=== PATIENT | male | born 1965 | race Caucasian/White ===

== ENCOUNTER 2018-07-12 10:15 | Inpatient (IN) | payer SELFPAY ==
[2018-07-12] MEDS ORDERED: Fentanyl 100 MCG/2 ML VIAL ONE ×2 (10:26→10:39)
[2018-07-12] MEDS ORDERED: Adacel (T-DAP) 0.5 ML SYRINGE ONE (10:34)
[2018-07-12 10:43] LABS: Hemoglobin 11.9 g/dL (14.0-18.0); Mean Corpuscular HGB CONC 33.1 g/dL (32.0-36.0); Mean Corpuscular Hemoglobin 30.4 pg (27.0-31.0); Mean Corpuscular Volume 91.7 fL (78.0-98.0); Mean Platelet Volume 6.2 fL (7.4-10.4); Platelet Count 234 thou/uL (130-400); RBC Distribution Width 12.2 % (11.5-14.5); Red Blood Cell (RBC) Count 3.92 mill/uL (4.70-6.10); White Blood Cell (WBC) Count 8.7 thou/uL (4.8-10.8)
[2018-07-12 10:56] LABS: Band 34 % (5-11); Lymphocytes 7 % (21-51); MDiff Complete? YES; Metamyelocyte 1 % (0-0); Neutrophil 58 % (42-75); Platelet Morphology Comment Appears Adequate; RBC Morphology Normal
--- NOTE | 2018-07-12 10:56 | RAD ---
PORTABLE CHEST 1 VIEW: Date: 07/12/18 Time: 1022 hours HISTORY: Rib fractures, chest tubes. FINDINGS/IMPRESSION: Comparison made with exam at 0942 hours this same date. No significant interval change is seen. POS: OFF
[2018-07-12 11:03] LABS: ALT (SGPT) 53 U/L (8-55); AST (SGOT) 194 U/L (5-34); Albumin 3.2 g/dL (3.5-5.0); Alkaline Phosphatase 56 U/L (40-150); Anion Gap 14 mmol/L (10-20); BUN (Urea Nitrogen) 15 mg/dL (8.4-25.7); Bilirubin, Total 1.1 mg/dL (0.2-1.2); Calc. Creatinine Clearance 0 mL/min (70-130); Calcium 8.8 mg/dL (7.8-10.44); Carbon Dioxide 16 mmol/L (22-29); Chloride 101 mmol/L (98-107); Estimated GFR-MDRD 82; Globulin 2.6 g/dL (2.4-3.5); Glucose 148 mg/dL (70-105); Potassium 4.4 mmol/L (3.5-5.1); Protein, Total 5.8 g/dL (6.0-8.3); Sodium 127 mmol/L (136-145)
[2018-07-12 11:05] LABS: INR-International Normal Ratio 1.2; PTT 31.7 SEC (22.9-36.1); Prothrombin Time 15.3 SEC (12.0-14.7)
[2018-07-12 11:07] LABS: Lactic Acid 3.1 mmol/L (0.5-2.2)
[2018-07-12 11:12] LABS: Acetaminophen Less than 6.0 mcg/mL (10.0-30.0); Alcohol Less than 10 mg/dL (Less than 10); Salicylate Less than 8.0 mg/dL (15.0-30.0)
--- NOTE | 2018-07-12 11:18 | HP ---
HISTORY OF PRESENT ILLNESS: Mao Mcfadden is a 52-year-old male patient transfer from [place]. The patient yesterday was cutting tree limbs when a tree limb fell on him. He denies loss of consciousness. He had pain today and made it to his car and a family member drove him to the [place] [facility], where he was found to have a systolic blood pressure in the 70s, tachypneic and hypoxic. Evaluation revealed that he had multiple rib fractures bilaterally and hemopneumothoraces. Bilateral chest tubes were placed, one unit of blood was initiated, and his blood pressure normalized. He was transferred by air to [facility], hemodynamically stable, alert and oriented, GCS of 15. The CAT scan in [place] prior to chest tube placement did reveal bilateral pneumothoraces, left greater than right, bilateral pleural effusions, right larger than the left. Multiple bilateral rib fractures, right ribs 1 through 5 and 7 through 9 and left ribs 1 through 5, and 7 through 8 with a nondisplaced fracture of the right scapular body. He had a fracture of the body at T10 with compression and one fracture line running vertically through it front to back, fractures of each lamina were present, there is very little displacement. Mediastinum is normal. He had L1-[address] scan of the brain, abdomen, pelvis, otherwise unremarkable, on arrival at this institution, the patient as stated above, GCS 15, hemodynamically stable, he was talking coherently, but having some difficulty because of the pain with inspiration from his bilateral rib fractures. Cervical spine CAT scan and brain CAT scan were normal. In [place], his hemoglobin was 11.8, white count 9.3. Laboratories are pending here. This morning in [place] at 8 o'clock, sodium 126, potassium 4.3, chloride 94, carbon dioxide 21, BUN 16, and creatinine 1.35. Blood gas is 7.2, pCO2 38, bicarb 16, hemoglobin 10.9. ALLERGIES: SULFA. SOCIAL HISTORY: Tobacco, none. Alcohol, five beers a day. MEDICATIONS: None routinely. PAST SURGICAL HISTORY: ORIF, left heel/ankle. PAST MEDICAL HISTORY: Noncontributory. REVIEW OF SYSTEMS: Ten-point noncontributory. PHYSICAL EXAMINATION: VITAL SIGNS: Heart rate 102, blood pressure 130/70, respiratory rate 18 to 20. HEAD, EARS, EYES, NOSE AND THROAT: Unremarkable. Small laceration in right upper eyelid less than half a centimeter, small laceration submandibular less than a centimeter. NECK: Nontender. Cervical spine nontender. No neck masses. LUNGS: Splinting from pain, but good breath sounds. CARDIAC: Regular rate and rhythm. Slight tachycardia 102 to 105. ABDOMEN: Soft, flat, nondistended. Chest wall tender. Thoracolumbar spine slightly tender lower thoracic spine and upper lumbar. EXTREMITIES: Palpable pedal pulses. Palpable radial pulses. NEUROLOGICAL: Intact. LABORATORY DATA: As noted. ASSESSMENT/PLAN: 1. Multiple bilateral rib fractures with bilateral hemopneumothorax status post chest tube placement in both sides in [place]. He has less than 400 mL of blood in each chest tube. His lungs are fully inflated and we will repeat chest x-ray here. He will need pain control on admission to the floor. His blood pressure is normalized after resolution of his hemopneumothoraces .. 2. T10 vertebral body fracture with neurologically intact. Neurosurgery consultation, L1-2 compression fracture neurologically intact. 3. Alcohol abuse history. Prophylaxis for withdrawal. Job ID: [id number]
--- NOTE | 2018-07-12 12:01 | CON ---
DATE OF CONSULTATION: 07/12/2018 REQUESTING PHYSICIAN: Trauma Services. CONSULTING PHYSICIAN: Lamberto San MD REASON FOR CONSULTATION: Right scapula fracture. HISTORY OF PRESENT ILLNESS: This is a 52-year-old male, who presented by air transfer from our [place] facility. The patient states that yesterday he was cutting tree limbs on a cable that was attached to the main portion of the tree, fail to catch the limbs, and these subsequently fell on top of him. He denies any loss of consciousness or head injury. He was transferred to our facility after he had pain and was able to make it to a car and drive himself to the [place] [facility]. There, he was found to have a systolic blood pressure in the 70s, was tachypneic and hypoxic. Evaluation revealed that he had multiple rib fractures bilaterally and pneumothoraces. Bilateral chest tubes were placed, 1 unit of blood was initiated and his blood pressure was normalized. He was then transferred by air to our facility, hemodynamically stable, alert and oriented. Further workup in our emergency department shows evidence of a nondisplaced scapular body fracture on the right. There is also evidence of bilateral distal clavicle fractures, which are also nondisplaced. We have been consulted for this reason. Currently at bedside, the patient is able to converse with me and provide a history. He has been admitted to the Trauma Services. ALLERGIES: SULFA. PAST MEDICAL HISTORY: Noncontributory. PAST SURGICAL HISTORY: ORIF of the left heel and ankle. SOCIAL HISTORY: The patient denies any tobacco use or illicit drug use. He states that he drinks 5 beers a day. He lives by himself. FAMILY HISTORY: Reviewed and noncontributory. PHYSICAL EXAMINATION: VITAL SIGNS: Heart rate of 102, blood pressure of 130/70, respiratory rate of 18. HEENT: Head is normocephalic. There are small lacerations to the forehead region. One over the right upper eyelid that is less than half a centimeter. NECK: Supple. Trachea midline. Breathing is nonlabored. CHEST: Bilateral chest tubes are present. He does have tenderness to palpation over his bilateral clavicles. No open wounds overlying these. MUSCULOSKELETAL: Upper extremities, he is able to move both of his upper extremities independently without any difficulty. On the right upper extremity, this was evaluated. He is able to flex and extend at the elbow, pronate and supinate at the elbow, flex and extend at the wrist and move all digits. Distal neurovascular status is intact. Left upper extremity was evaluated. He is able to flex and extend at the elbow, pronate and supinate at the elbow, flex and extend at the wrist, and move all digits appropriately. Distal neurovascular status is intact. There are no open wounds noted to either of these upper extremities. No other significant injuries are noted on extremity evaluation. IMAGING: Chest x-ray as well as CT of the chest, abdomen, and pelvis are reviewed. There is evidence of a nondisplaced right scapular body fracture. There is also evidence of nondisplaced bilateral distal clavicle fractures. ASSESSMENT: Trauma patient status post struck by a falling tree with right scapular body fracture and bilateral nondisplaced clavicle fractures. PLAN: At this point, the patient has been admitted to the Trauma Services. He has bilateral chest tubes, which were placed. He also appears to have multiple spinal fractures. Neurosurgery has been consulted for this reason. It appears that none of the orthopedic fractures are surgical. I have reviewed this with the patient. We would like to place him in bilateral slings whenever he is indicated for ambulatory movement. While he is in bed, he does not need these as these are for comfort purposes only. We will continue to follow the patient. Job ID: [id number]
[2018-07-12] MEDS ORDERED: Ondansetron PF 4 MG/2 ML Vial IVP PRN ×2 (12:22→16:19)
[2018-07-12] MEDS ORDERED: Dextrose 5% in Water 1,000 ML IV PRN (12:22)
[2018-07-12] MEDS ORDERED: Dextrose 50% Abboject 50 ML SYRINGE SLOW IVP PRN (12:22)
[2018-07-12] MEDS ORDERED: Promethazine HCl 25 MG/ML VIAL IM PRN ×2 (12:22→16:19)
[2018-07-12] MEDS ORDERED: Oxazepam 10 MG CAP PO SCH (12:22)
[2018-07-12] MEDS ORDERED: Rib Fracture Protocol IV SCH (12:22)
--- NOTE | 2018-07-12 12:25 | PRG ---
DATE OF SERVICE: 07/12/2018 The patient seen and examined. I agree with Rakel Pola's evaluation on 07/12/2018. The patient is a 52-year-old male with known alcoholism, who was hit by a tree yesterday and was evaluated in the hospital today. He had numerous thoracic and pulmonary injuries. The patient is neurologically intact. CT scan has revealed T10, L1, and L2 fractures. The L1 and L2 are fairly significant compression fracture as well as T10 fractures and more complex fracture involving also the posterior elements with some elements of a Chance fracture, but no meaningful displacement or angulation. IMPRESSION AND PLAN: We will plan to treat the patient in a TLSO brace for approximately 3 months. He can be mobilized once the brace is in place, but I do expect there will be complications related to his chest tubes and bracing. Job ID: [id number]
[2018-07-12] MEDS: Sodium Chloride 0.9% 1,000 ML IV SCH ×2 (13:06→20:04)
[2018-07-12] MEDS ORDERED: Cyclobenzaprine 10 MG TAB PO PRN (13:11)
[2018-07-12] MEDS ORDERED: traMADol HCl 50 MG TAB PO PRN ×2 (13:16)
[2018-07-12] MEDS: Ketorolac Tromethamine 30 MG/ML VIAL IVP SCH ×2 (13:17→18:24)
[2018-07-12] MEDS ORDERED: Morphine 2 MG/ML SYRINGE SLOW IVP PRN (13:26)
[2018-07-12] MEDS ORDERED: Sodium Chloride 0.9% 1,000 ML IV SCH (13:30)
[2018-07-12] MEDS ORDERED: Lactated Ringer's 1,000 ML IV SCH (13:30)
[2018-07-12] MEDS: Acetaminophen 1,000 MG in Premix Bag 1 BAG IVPB SCH ×2 (14:40→20:04)
[2018-07-12] MEDS: Gabapentin 100 MG CAP PO SCH ×2 (14:40→20:04)
[2018-07-12] MEDS ORDERED: diphenhydrAMINE 25 MG CAP PO PRN (16:19)
[2018-07-12] MEDS ORDERED: diphenhydrAMINE 50 MG/ML VIAL IM PRN (16:19)
[2018-07-12] MEDS ORDERED: Naloxone HCl 0.4 mg/ml Vial IV PRN (16:19)
[2018-07-12] MEDS ORDERED: Zolpidem Tartrate 5 MG TAB PO PRN (16:19)
[2018-07-12] MEDS ORDERED: diphenhydrAMINE 50 MG/ML VIAL IVP PRN (16:19)
[2018-07-12] MEDS ORDERED: fentaNYL Citrate/PF 2,000 MCG in Sodium Chloride 0.9% 60 ML IV PRN (16:19)
[2018-07-12] MEDS ORDERED: Communication Order-Pharmacy FS SCH (16:30)
--- NOTE | 2018-07-12 16:53 | CON ---
DATE OF CONSULTATION: 07/12/2018 This is Rakel Escalona PA-C dictating a report for Joao Hooper MD. HISTORY OF PRESENT ILLNESS: The patient is a 52-year-old male, who presented to the emergency department as transfer from [place] after being injured while cutting down tree limbs. The patient reports that he was cutting tree limbs yesterday and was hit by a falling limb. He reports he did not initially present to the hospital at that time because he thought he was okay. However, overnight he had increasing chest and back pain as well as shortness of breath, which prompted evaluation at [place] ED earlier today. Upon arrival, the patient was found to be tachypneic, hypoxic, and hypotensive. Trauma scans revealed multiple rib fractures, bilateral pneumothoraces, right scapular fracture, bilateral clavicle fracture, T10 vertebral body fracture with extension of bilateral lamina, L1 compression fracture and L2 compression fractures with extension to the right articular process. CT head and neck was negative for acute changes or injury. The patient had bilateral chest tubes placed at the [place] ED and was transferred to [facility] ER for further management. He was seen by the Trauma Service on arrival. I also saw the patient in the ED. He has a GCS of 15 and was neurologically intact on my exam. PAST MEDICAL HISTORY: Notable for history of EtOH abuse. He reports he is otherwise healthy and does not take any medications. PAST SURGICAL HISTORY: Right ankle open reduction and internal fixation. SOCIAL HISTORY: The patient has not EtOH abuse. Drinks approximately 5 drinks per day. Does not smoke or use any drugs. REVIEW OF SYSTEMS: Per HPI. ALLERGIES: ALLERGIC TO SULFA. PHYSICAL EXAMINATION: CONSTITUTIONAL: Awake and alert, in no acute distress. HEENT: Head, there is a small abrasion over the right brow, otherwise no other signs of trauma. Eyes; PERRLA. Extraocular movements are intact. ENT; oral mucosa is pink, intact, and moist. He has normal voice. NECK: Nontender to palpation. Free active range of motion. No nuchal rigidity or meningismus. CARDIAC: Regular rate and rhythm. LUNGS: He has bilateral chest tubes placed. He is breathing comfortably. ABDOMEN: Flat, soft, and nontender. EXTREMITIES: He has free active range of motion of the lower extremities. No focal motor weakness. No reflex asymmetry in the lower extremities. 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 The patient is unable to lift his arms over the head secondary to pain. Denies any weakness in this area. No reflex asymmetry. Negative Freedman's. Negative clonus. NEURO: He has a GCS of 15. He is A and O x4. No focal neurologic deficits are appreciated. ASSESSMENT AND PLAN: This is a 52-year-old male, who was unfortunately hit by a tree limb and suffered multiple bilateral rib fractures with bilateral pneumothorax, status post chest tube placement in [place]. This is being managed by the Trauma Service and the patient appears to be resting comfortably. He has also right scapular fracture and bilateral clavicle fractures, which is being seen by the Orthopedic Service. With regard to his T10 vertebral body fracture with extension to bilateral lamina, L1 compression fracture, and L2 compression fractures with extension to the right articular process. We will plan to treat this with a TLSO brace. I do not anticipate any acute surgical intervention at this time. The patient should wear the brace at all times. We will contact [facility] for assistance with fitting his brace considering his ongoing chest tubes. I discussed this plan with Dr. Hooper, who will also see the patient. Please reach out to Neurosurgery for additional questions. Job ID: [id number]
[2018-07-12] MEDS ORDERED: Acetaminophen 650 MG Suppository PR SCH (18:00)
[2018-07-12] MEDS: Famotidine/PF 20 mg/2ml Vial SLOW IVP SCH (20:04)
[2018-07-13] MEDS: Acetaminophen 1,000 MG in Premix Bag 1 BAG IVPB SCH ×2 (00:57→08:26)
[2018-07-13] MEDS: Sodium Chloride 0.9% 1,000 ML IV SCH ×4 (00:57→19:48)
[2018-07-13] MEDS: Ketorolac Tromethamine 30 MG/ML VIAL IVP SCH ×5 (00:57→23:03)
[2018-07-13 06:53] LABS: #Eosinphils 0.1 thou/uL (0.0-0.7); #Lymphocytes 0.4 thou/uL (1.20-3.40); #Monocytes 0.1 thou/uL (0.11-0.59); #Neutrophils 3.6 thou/uL (1.40-6.50); %Basophils 0.8 % (0.0-1.0); %Eosinophils 2.3 % (0.0-10.0); %Lymphocytes 9.7 % (21.0-51.0); %Monocytes 3.1 % (0.0-10.0); %Neutrophils 84.1 % (42.0-75.0); Hemoglobin 9.5 g/dL (14.0-18.0); Mean Corpuscular Hemoglobin 31.5 pg (27.0-31.0); Mean Corpuscular Volume 92.5 fL (78.0-98.0); Mean Platelet Volume 6.1 fL (7.4-10.4); Platelet Count 168 thou/uL (130-400); RBC Distribution Width 12.3 % (11.5-14.5); Red Blood Cell (RBC) Count 3.03 mill/uL (4.70-6.10); White Blood Cell (WBC) Count 4.3 thou/uL (4.8-10.8)
[2018-07-13 07:09] LABS: Lactic Acid 0.9 mmol/L (0.5-2.2)
[2018-07-13 07:10] LABS: Anion Gap 9 mmol/L (10-20); BUN (Urea Nitrogen) 10 mg/dL (8.4-25.7); Calc. Creatinine Clearance 115 mL/min (70-130); Calcium 8.3 mg/dL (7.8-10.44); Carbon Dioxide 21 mmol/L (22-29); Chloride 108 mmol/L (98-107); Estimated GFR-MDRD Greater than 90; Glucose 91 mg/dL (70-105); Magnesium 1.7 mg/dL (1.6-2.6); Phosphorus 3.2 mg/dL (2.3-4.7); Potassium 4.1 mmol/L (3.5-5.1); Sodium 134 mmol/L (136-145)
[2018-07-13] MEDS: Famotidine/PF 20 mg/2ml Vial SLOW IVP SCH ×2 (08:26→19:49)
[2018-07-13] MEDS: Gabapentin 100 MG CAP PO SCH ×3 (08:26→19:49)
--- NOTE | 2018-07-13 09:12 | RAD ---
PORTABLE CHEST: Date: 07/13/18 HISTORY: Bilateral chest tubes, evaluation for pneumothorax. COMPARISON: Prior day's study. FINDINGS: The right and left-sided chest tubes remain unchanged in position. Subcu emphysema over the right [address] is again demonstrated. There is some minimal subsegmental atelectatic change in the lung bases. No signs of pneumothorax. IMPRESSION: Stable exam. POS: [facility]
[2018-07-13] MEDS ORDERED: Ketorolac Tromethamine 30 MG/ML VIAL IVP SCH (10:37)
[2018-07-13] MEDS ORDERED: Thiamine 100 MG TAB PO SCH (10:45)
[2018-07-13] MEDS: Acetaminophen 325 MG TAB PO SCH ×3 (11:40→23:03)
[2018-07-13] MEDS: Oxazepam 10 MG CAP PO SCH ×2 (14:07→19:49)
[2018-07-13 14:43] LABS: #Basophils 0.1 thou/uL (0.0-0.2); #Eosinphils 0.1 thou/uL (0.0-0.7); #Lymphocytes 0.4 thou/uL (1.20-3.40); #Monocytes 0.2 thou/uL (0.11-0.59); #Neutrophils 4.3 thou/uL (1.40-6.50); %Basophils 1.2 % (0.0-1.0); %Lymphocytes 8.8 % (21.0-51.0); %Monocytes 4.1 % (0.0-10.0); %Neutrophils 84.9 % (42.0-75.0); Hemoglobin 9.6 g/dL (14.0-18.0); Mean Corpuscular HGB CONC 33.5 g/dL (32.0-36.0); Mean Corpuscular Hemoglobin 31.2 pg (27.0-31.0); Mean Corpuscular Volume 93.2 fL (78.0-98.0); Platelet Count 157 thou/uL (130-400); RBC Distribution Width 12.5 % (11.5-14.5); Red Blood Cell (RBC) Count 3.06 mill/uL (4.70-6.10)
--- NOTE | 2018-07-13 16:14 | PRG ---
DATE OF SERVICE: 07/13/2018 SUBJECTIVE: This is a 52-year-old gentleman, who was a transfer from [place] with a delayed presentation of being struck by a tree limb. The patient had no loss of consciousness. The patient continues to have bilateral chest tubes to suction, both with very small air leak. The patient continues to use incentive spirometer, but is only able to get to the 500 mL. The patient remains in a TLSO brace. The patient reports moderate amount of pain and continues to use his GRAPHIC DESIGN INTERN. The patient had no overnight events. The patient's heart rate continues to be elevated. The patient's scheduled Serax was a hard stop due to the patient being placed on GRAPHIC DESIGN INTERN. OBJECTIVE: VITAL SIGNS: Temperature 97.9, pulse 126, respirations 16, SpO2 of 91% on room air, and blood pressure 131/86. HEENT: Small laceration in the right upper eyelid. RESPIRATORY: Splinting from pain. Positive breath sounds bilateral. No wheezing, rales, or rhonchi. CARDIOVASCULAR: Tachycardic. Regular rhythm. EXTREMITIES: Distal pulses in all extremities. NEUROLOGICAL: No focal deficits. LABORATORY DATA: WBC 5.0, RBC 3.06, hemoglobin 9.6, hematocrit 28.6, and platelets 157. Sodium 134, potassium 4.1, chloride 108, CO2 of 21, anion gap 9, BUN 10, creatinine 0.66, estimated GFR 90, glucose 91, lactic acid 0.9, calcium 8.3, phosphorus 3.2, and magnesium 1.7. DIAGNOSTIC DATA: Chest x-ray, bilateral chest tube, unchanged position. Subcutaneous emphysema over the right chest again demonstrated from previous x-ray. No signs of pneumothorax. Some minimal subsegmental atelectatic change in lung bases. IMPRESSION: 1. Blunt trauma from falling tree limb. 2. Bilateral hemopneumothorax with bilateral chest tubes. 3. Right 1 through 5 and 7th rib fractures. 4. Left 1 through 5 and 7 through 8th rib fractures. 5. T10 vertebral body fracture. 6. L1-L2 compression fracture. 7. Right scapular fracture. 8. Bilateral clavicle fractures. 9. History of alcohol abuse. PLAN: We will continue bilateral chest tubes to suction. We will repeat chest x-ray in the morning. We will place the patient back on scheduled Serax as it was a hard stop when the patient's GRAPHIC DESIGN INTERN was placed. We will continue fentanyl GRAPHIC DESIGN INTERN for pain. We will place bilateral slings whenever the patient ambulates. Continue TLSO. We will schedule the patient's Tylenol and Toradol. We will continue free water restriction due to the patient's hyponatremia. We will encourage pulmonary toilet. We will encourage physical and occupational therapy. We will place a rehab screen. Job ID: [id number]
[2018-07-13] MEDS ORDERED: Magnesium Sulfate 2 GM in Sodium Chloride 0.9% 100 ML IVPB SCH (18:30)
[2018-07-13] MEDS ORDERED: Magnesium 2 GM/50 ML 2 GM in Premix Bag 1 BAG IVPB SCH (18:45)
[2018-07-13 19:04] LABS: #Basophils 0.1 thou/uL (0.0-0.2); #Eosinphils 0.1 thou/uL (0.0-0.7); #Lymphocytes 0.6 thou/uL (1.20-3.40); #Monocytes 0.2 thou/uL (0.11-0.59); #Neutrophils 3.8 thou/uL (1.40-6.50); %Basophils 1.7 % (0.0-1.0); %Eosinophils 2.6 % (0.0-10.0); %Lymphocytes 11.7 % (21.0-51.0); %Monocytes 3.5 % (0.0-10.0); %Neutrophils 80.5 % (42.0-75.0); Hemoglobin 9.6 g/dL (14.0-18.0); Mean Corpuscular HGB CONC 32.3 g/dL (32.0-36.0); Mean Corpuscular Hemoglobin 30.1 pg (27.0-31.0); Mean Corpuscular Volume 93.3 fL (78.0-98.0); Mean Platelet Volume 5.9 fL (7.4-10.4); Platelet Count 144 thou/uL (130-400); RBC Distribution Width 12.5 % (11.5-14.5); Red Blood Cell (RBC) Count 3.19 mill/uL (4.70-6.10); White Blood Cell (WBC) Count 4.7 thou/uL (4.8-10.8)
[2018-07-13] MEDS ORDERED: Sodium Chloride 0.9% 500 ML IV SCH ×2 (21:30→21:45)
[2018-07-14] MEDS: Ketorolac Tromethamine 30 MG/ML VIAL IVP SCH ×4 (05:34→23:47)
[2018-07-14] MEDS: Acetaminophen 325 MG TAB PO SCH ×4 (05:35→23:46)
[2018-07-14] MEDS: Oxazepam 10 MG CAP PO SCH ×3 (05:35→21:34)
[2018-07-14 06:37] LABS: Anion Gap 9 mmol/L (10-20); BUN (Urea Nitrogen) 9 mg/dL (8.4-25.7); Calc. Creatinine Clearance 124 mL/min (70-130); Calcium 8.2 mg/dL (7.8-10.44); Carbon Dioxide 22 mmol/L (22-29); Chloride 106 mmol/L (98-107); Estimated GFR-MDRD Greater than 90; Glucose 89 mg/dL (70-105); Magnesium 1.7 mg/dL (1.6-2.6); Phosphorus 2.9 mg/dL (2.3-4.7); Sodium 133 mmol/L (136-145)
--- NOTE | 2018-07-14 07:15 | RAD ---
CHEST 1 VIEW: Date: 07/14/18 HISTORY: Chest tubes and pneumothoraces. COMPARISON: Prior exam dated 07/13/18. FINDINGS: Right and left-sided chest tubes are stable. Subcutaneous emphysema overlying right chest wall is imp roved. There has been interval development of a small right apical pneumothorax. Findings were called to the floor to Sophia Gee RN, at 0520 hours on 07/14/18. No left-sided pneumothorax is evident. Multiple rib fractures are again noted. Heart size within normal limits. IMPRESSION: Interval development of small right pneumothorax as detailed. Findings called as above. CODE CR. POS: [facility]
--- NOTE | 2018-07-14 08:02 | CON ---
DATE OF CONSULTATION: SUBJECTIVE: Seen and examined. He is doing reasonably well considering the extent of his injuries. His pain control remains an issue. He remains in his TLSO brace and can continue to be mobilized in the brace. We will arrange for 4-week outpatient followup with x-rays, and in the interim, he needs to remain in the brace at all time for his thoracolumbar fractures. Job ID: [id number]
[2018-07-14] MEDS: Thiamine 100 MG TAB PO SCH (08:47)
[2018-07-14] MEDS: Folic Acid 1 MG TAB PO SCH (08:47)
[2018-07-14] MEDS: Famotidine/PF 20 mg/2ml Vial SLOW IVP SCH (08:47)
[2018-07-14] MEDS: Gabapentin 100 MG CAP PO SCH ×2 (08:47→14:47)
[2018-07-14 12:23] LABS: #Basophils 0.1 thou/uL (0.0-0.2); #Eosinphils 0.3 thou/uL (0.0-0.7); #Lymphocytes 0.7 thou/uL (1.20-3.40); #Monocytes 0.3 thou/uL (0.11-0.59); #Neutrophils 5.2 thou/uL (1.40-6.50); %Basophils 1.2 % (0.0-1.0); %Eosinophils 4.2 % (0.0-10.0); %Lymphocytes 10.4 % (21.0-51.0); %Monocytes 4.8 % (0.0-10.0); %Neutrophils 79.4 % (42.0-75.0); Hemoglobin 9.5 g/dL (14.0-18.0); Mean Corpuscular HGB CONC 33.3 g/dL (32.0-36.0); Mean Corpuscular Hemoglobin 31.3 pg (27.0-31.0); Mean Platelet Volume 6.4 fL (7.4-10.4); Platelet Count 189 thou/uL (130-400); RBC Distribution Width 12.7 % (11.5-14.5); Red Blood Cell (RBC) Count 3.04 mill/uL (4.70-6.10); White Blood Cell (WBC) Count 6.6 thou/uL (4.8-10.8)
[2018-07-14] MEDS ORDERED: Magnesium 2 GM/50 ML 2 GM in Premix Bag 1 BAG IVPB SCH ×2 (13:00→14:00)
[2018-07-14] MEDS ORDERED: Potassium Phosphate 15 MMOL in Sodium Chloride 0.9% 250 ML 250 ML IVPB SCH (14:15)
[2018-07-14] MEDS ORDERED: Potassium Phosphate 15 MMOL, Magnesium Sulfate 2 GM in Sodium Chloride 0.9% 250 ML 250 ML IVPB SCH (14:30)
[2018-07-14] MEDS ORDERED: Morphine 4 MG/ML VIAL SLOW IVP PRN (15:09)
--- NOTE | 2018-07-14 15:49 | PRG ---
DATE OF SERVICE: 07/14/2018 SUBJECTIVE: This is a 52-year-old gentleman, status post blunt trauma from being struck by a tree limb. This morning, the patient is currently participating with physical therapy. The patient is in his TLSO brace and physical therapy assisting the patient with walking and getting him up to the chair. Bilateral chest tubes are currently to water-seal. The patient denies any respiratory distress. The patient remains tachycardic and the patient only able to use his incentive spirometer up to 500 mL only. The patient denies any complaints at this time. 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 The patient's family concern with the patient's disposition and where he will go from the hospital. Chest tube output total right 750 mL, left output total 450 mL. Left shows a very small leak. OBJECTIVE: VITAL SIGNS: Temperature 98.0, pulse 132, respirations 18, SpO2 of 95% on 2 L, and blood pressure 126/85. GENERAL: The patient is awake and alert, tolerating physical therapy at this time. RESPIRATORY: Bilateral breath sounds clear to auscultation. No respiratory distress. Equal symmetrical chest rise. No wheezing, rales, or rhonchi. CARDIOVASCULAR: Regular rhythm. The patient is tachycardic. No heart murmurs, no pedal edema. EXTREMITIES: Moves all extremities. The patient with bilateral clavicle fractures and bilateral slings in place. NEUROLOGIC: No focal deficit. Normal sensation to all extremities. LABORATORY DATA: WBC 6.6, RBC 3.04, hemoglobin 9.5, hematocrit 28.6, and platelets 189. Sodium 133, potassium 4.0, chloride 106, carbon dioxide 22, anion gap 9, BUN 9, creatinine 0.61, estimated GFR 90, glucose 89, calcium 8.2, phosphorus 2.9, and magnesium 1.7. DIAGNOSTICS: 1. A 12-lead EKG, sinus tachycardia. 2. Chest x-ray shows a small right pneumothorax. Multiple rib fractures. No left-sided pneumothorax evident. IMPRESSION: 1. Blunt trauma from a falling tree limb. 2. Bilateral hemopneumothorax with bilateral chest tubes to water seal. 3. Right 1 through 5 and 7th rib fractures. 4. Left 1 through 5 and 7 through 8 rib fractures. 5. T10 vertebral body fracture. 6. L1-L2 compression fracture. 7. Right scapular fracture. 8. Bilateral clavicle fractures. 9. History of alcohol abuse. 10. Chronic hyponatremia. PLAN: Continue bilateral chest tubes to water seal at this time. We will attempt to wean the patient's oxygen. We will repeat another chest x-ray in the morning. We will keep the patient on his scheduled Serax. We will wean the AUTOMATION QA TESTER today. We will place the patient on an oral rib protocol for pain management. We will continue free water restriction. We will continue to encourage pulmonary toilet with use of incentive spirometer. We will encourage physical and occupational therapy. The patient pending rehab placement/rehab screen. The patient has been instructed to stay out of the bed during the day. He has been instructed to sit in a chair as he needs to be moving around more. The patient and family both verbalized understanding. The plan has also been discussed with Dr. Coats, who agrees. The plan has also been discussed with Dr. Garvey, who agrees to wean and discontinue the AUTOMATION QA TESTER pump later today. Job ID: [id number]
[2018-07-14] MEDS: traMADol HCl 50 MG TAB PO SCH ×2 (17:19→23:46)
[2018-07-14] MEDS: Cyclobenzaprine 10 MG TAB PO SCH (21:34)
[2018-07-14] MEDS: Gabapentin 300 MG CAP PO SCH (21:34)
[2018-07-14] MEDS: Sodium Chloride 0.9% 1,000 ML IV SCH (22:49)
[2018-07-15] MEDS: Oxazepam 10 MG CAP PO SCH ×3 (05:52→21:02)
[2018-07-15] MEDS: Acetaminophen 325 MG TAB PO SCH ×5 (05:52→23:03)
[2018-07-15] MEDS: traMADol HCl 50 MG TAB PO SCH ×5 (05:52→23:02)
[2018-07-15] MEDS: Ketorolac Tromethamine 30 MG/ML VIAL IVP SCH (05:53)
[2018-07-15 05:56] LABS: Anion Gap 11 mmol/L (10-20); BUN (Urea Nitrogen) 11 mg/dL (8.4-25.7); Calc. Creatinine Clearance 118 mL/min (70-130); Calcium 8.4 mg/dL (7.8-10.44); Carbon Dioxide 20 mmol/L (22-29); Chloride 105 mmol/L (98-107); Estimated GFR-MDRD Greater than 90; Glucose 79 mg/dL (70-105); Magnesium 1.9 mg/dL (1.6-2.6); Phosphorus 3.4 mg/dL (2.3-4.7); Potassium 4.2 mmol/L (3.5-5.1); Sodium 132 mmol/L (136-145)
--- NOTE | 2018-07-15 09:02 | RAD ---
FRONTAL RADIOGRAPH CHEST: DATE: 07/15/2018. COMPARISON: 07/14/2018. HISTORY: Chest tubes, recent trauma. FINDINGS: There are numerous displaced left-sided rib fractures, better assessed on the 07/12/2018 CT exam. The re is a stable left-sided chest tube in place. There is dense opacity in the medial left base sugges ting consolidation/collapse and/or left pleural fluid. There is a fracture involving the distal aspe ct of the left clavicle. Osseous fractures are better assessed on recent CT exam. There is a chest tube overlying the right lung base. No definite pneumothorax is noted on either agnieszka e. There is a distal clavicle fracture on the right. There is focal opacity in the medial right jesica g base in the lateral aspect of the mid right lung zone, new, suggesting volume loss or nonspecific n ew airspace disease. IMPRESSION: Bilateral chest tubes in place. Numerous fractures, better assessed on recent CT exam. Focal areas of pulmonary parenchymal opacity noted in bilateral lung bases as well as in the lateral aspect of th e mid right lung zone. Continued followup advised. POS: [facility]
[2018-07-15] MEDS: Enoxaparin Sodium 30 MG/0.3 ML SYRINGE SC SCH (09:23)
[2018-07-15] MEDS: Folic Acid 1 MG TAB PO SCH (09:23)
[2018-07-15] MEDS: Thiamine 100 MG TAB PO SCH (09:23)
[2018-07-15] MEDS: Gabapentin 300 MG CAP PO SCH (09:23)
[2018-07-15] MEDS: Ibuprofen 800 MG TAB PO SCH ×3 (09:23→21:02)
[2018-07-15] MEDS ORDERED: Cyclobenzaprine 10 MG TAB PO PRN (10:35)
[2018-07-15] MEDS: Cyclobenzaprine 10 MG TAB PO SCH (11:34)
[2018-07-15 12:52] LABS: CKMB 11.4 ng/mL (0-6.6)
[2018-07-15 13:40] LABS: Base Excess (BEa) -3.3 mEq/L (-2.0 to +3.0); CO2 Tension 55.7 mmHg (35.0-45.0); Calcium, Ionized 1.21 mmol/L (1.12-1.30); Carboxyhemoglobin (COHb) 1.5 gm% (0.0-3.0); Hemoglobin (Hb) 9.2 g/dL (14.0-18.0); Potassium - ABG Lab 4.17 mmol/L (3.70-5.30)
[2018-07-15 13:41] LABS: ALV-art Gradient 125.055 (0-20); Puncture Site LBA; pH, Arterial 7.25 (7.35-7.45)
--- NOTE | 2018-07-15 14:07 | CT ---
CT PULMONARY ANGIOGRAM WITH IV CONTRAST AND 3D POSTPROCESSING: Date: 07/15/18 HISTORY: Recent chest tube removal. Shortness of breath. Low oxygen saturations. FINDINGS: The pulmonary arterial vasculature is well opacified without filling defects to suggest pulmonary emb olism. The thoracic aorta is well opacified without aneurysm or dissection. There are bilateral pleur al effusions with interval improvement since 07/12/18. Adjacent infiltrates/atelectatic changes are p resent. There are small bilateral pneumothoraces, right larger than left. Patchy ground-glass infiltr ates are seen in the lung martinez bilaterally. There is a 3.0 cm cavity with air and fluid in the post eromedial aspect of the right lower lobe. Fractures of the bilateral ribs, right scapula, and T10 vertebral body are again seen, as on 07/12/18 . IMPRESSION: 1. No CT evidence of pulmonary embolism. 2. Cavity in the right lung. 3. Bilateral pleural effusions and infiltrates. 4. Multiple fractures. POS: [facility]
--- NOTE | 2018-07-15 15:12 | PRG ---
DATE OF SERVICE: 07/15/2018 SUBJECTIVE: Mao Mcfadden is seen this morning. He is intermittently lethargic, but when I arrived in the room, he was appropriate and communicative. Although, after talking to him, he did become sleepy. His medications have been adjusted. 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 Discontinuing his Flexeril. Decreasing his gabapentin and Ultram. The patient was hypoxic and heart rate 136. He did undergo a CTA to rule out pulmonary embolus that was normal. He was noted to have small bilateral pneumothoraces on CAT scan, not seen on planned x-ray. He had inflammatory changes, ground-glass appearance, multiple fractures. His chest tubes have been removed earlier as he did not have an air leak and there was no significant drainage. LABORATORY DATA: None today. ASSESSMENT AND PLAN: Sinus tachycardia, hypoxia, atelectasis, bilateral rib fractures, and pulmonary contusion versus aspiration. We would add intravenous antibiotics and fluids and have transferred out to the ICU for closer management and CPAP. He is at risk for intubation. Continue deep venous thrombosis prophylaxis, and he has been active ambulating, we will continue efforts to do so. Hopefully, he would not require replacement of his chest tubes. We will follow chest x-ray serially. Job ID: [id number]
[2018-07-15] MEDS: Sodium Chloride 0.9% 1,000 ML IV SCH (15:53)
[2018-07-15] MEDS ORDERED: Senokot 8.6 MG TAB PO PRN (16:05)
[2018-07-15 16:22] LABS: Troponin I 0.403 ng/mL (< 0.028)
[2018-07-15] MEDS ORDERED: Magnesium 2 GM/50 ML 2 GM in Premix Bag 1 BAG IVPB SCH (16:45)
--- NOTE | 2018-07-15 17:14 | RAD ---
FExam: Portable chest Provided clinical history: Chest tube removal FINDINGS: Comparison exam earlier same date. Interval removal of right and left-sided chest tubes. No evidence for pneumothorax. Parenchymal changes involving the right midlung zone and left lung base persist. IMPRESSION: As above.
--- NOTE | 2018-07-15 18:00 | PRG ---
DATE OF SERVICE: 07/15/2018 SUBJECTIVE: Mr. Mcfadden is a 52-year-old man who was admitted on 07/12/2018 following blunt trauma to the chest and extremities by a falling tree limb. The patient sustained multiple bilateral rib fractures, bilateral hemopneumothoraces, which has been successfully treated with tube thoracostomies. He also sustained a T10 vertebral fracture as well as an L1-L2 compression fractures, which have been managed with a TLSO brace. Today, the patient was found with acute delirium and agitated. Coincidentally, his oxygen saturation was diminished. He had poor cough effort. He otherwise was moving all extremities and did not have any focal neurologic deficits present. OBJECTIVE: VITAL SIGNS: Today included blood pressure 139/78, pulse 122, respiratory rate is 18, temperature 98.6 degrees Fahrenheit, oxygen saturation at that time was 88% on 2.5 L by nasal cannula oxygen. HEENT: Pupils are equal, round, and reactive to light and accommodation. HEART: Reveals regular rate with sinus tachycardia. No murmurs or gallops auscultated. LUNGS: Reveal bibasilar rhonchi. Breathing otherwise regular and nonlabored. ABDOMEN: Soft, nontender, and nondistended. EXTREMITIES: Reveal 2+ radial and pedal pulses bilaterally. No ankle edema is present. NEUROLOGIC: Reveals no focal deficits present. LABORATORY FINDINGS: Today include metabolic profile; sodium 132, potassium is 4.2, chloride is 105, bicarb is 20, BUN 11, creatinine 0.64, magnesium 1.9, phosphorus is 3.4. Troponin I noted at 0.397, which upon repeat was noted at 0.403 and that was [address] angiography of the chest was negative for pulmonary embolism. However, bilateral pleural effusions and infiltrates were noted in conjunction with multiple bilateral rib fractures. Residual bilateral pulmonary contusions also noted. IMPRESSIONS: 1. Acute metabolic encephalopathy, likely secondary to hypoxemia secondary to pulmonary atelectasis. 2. Bilateral multiple rib fractures. 3. Bilateral pulmonary contusions. PLAN: 1. Continue with noninvasive mechanical ventilator support and aggressive pulmonary toilet. 2. Increase activity per Physical and Occupational Therapy. 3. Ask PM and R to evaluate the patient for possible inpatient rehabilitation post discharge. Above findings and plan discussed with the patient and family at bedside. They indicated understanding information given. Job ID: [id number]
--- NOTE | 2018-07-15 18:01 | EKG ---
Test Reason : TACHYCARDIA Blood Pressure : / mmHG Vent. Rate : 132 BPM Atrial Rate : 132 BPM P-R Int : 142 ms QRS Dur : 082 ms QT Int : 294 ms P-R-T Axes : 047 -12 055 degrees QTc Int : 435 ms Sinus tachycardia Possible Left atrial enlargement T wave abnormality, consider anterior ischemia Abnormal ECG No previous ECGs available Confirmed by ANNA BELTRAN (2) on 07/15/2018 6:01:01 PM Referred By: Shannon LANGLEY Confirmed By:ANNA BELTRAN
[2018-07-15] MEDS: Gabapentin 100 MG CAP PO SCH ×2 (18:42→21:02)
[2018-07-16] MEDS: Oxazepam 10 MG CAP PO SCH ×3 (05:00→21:18)
[2018-07-16] MEDS: Acetaminophen 325 MG TAB PO SCH ×4 (05:00→23:48)
[2018-07-16] MEDS: traMADol HCl 50 MG TAB PO SCH ×4 (05:00→23:48)
[2018-07-16] MEDS: Sodium Chloride 0.9% 1,000 ML IV SCH ×2 (05:01→13:49)
[2018-07-16 07:29] LABS: #Eosinphils 0.4 thou/uL (0.0-0.7); #Lymphocytes 1.1 thou/uL (1.20-3.40); #Monocytes 0.5 thou/uL (0.11-0.59); #Neutrophils 3.6 thou/uL (1.40-6.50); %Basophils 0.8 % (0.0-1.0); %Eosinophils 6.9 % (0.0-10.0); %Neutrophils 63.3 % (42.0-75.0); Hemoglobin 8.5 g/dL (14.0-18.0); Mean Corpuscular Hemoglobin 30.8 pg (27.0-31.0); Mean Corpuscular Volume 93.4 fL (78.0-98.0); Mean Platelet Volume 6.4 fL (7.4-10.4); Platelet Count 253 thou/uL (130-400); RBC Distribution Width 12.7 % (11.5-14.5); Red Blood Cell (RBC) Count 2.76 mill/uL (4.70-6.10); White Blood Cell (WBC) Count 5.7 thou/uL (4.8-10.8)
--- NOTE | 2018-07-16 07:43 | RAD ---
FAP view chest. HISTORY: Respiratory distress. AP view chest is obtained on 07/16/2018. Comparison made to previous exam from 07/15/2018. AP view chest demonstrates EKG leads seen over the chest. There are areas of airspace opacity in the right upper lobe, left midlung and left lung bases. A tiny right-sided and small left-sided pleural effusion seen. Multiple left-sided rib fractures seen. Radiographic appearance of the chest is stable. No evidence of hemo or pneumothorax seen. IMPRESSION: No evidence of recurrent pneumothorax in a patient with multiple left-sided rib fractures .
[2018-07-16 07:45] LABS: Anion Gap 8 mmol/L (10-20); BUN (Urea Nitrogen) 9 mg/dL (8.4-25.7); Calc. Creatinine Clearance 133 mL/min (70-130); Calcium 8.1 mg/dL (7.8-10.44); Carbon Dioxide 25 mmol/L (22-29); Chloride 104 mmol/L (98-107); Estimated GFR-MDRD Greater than 90; Glucose 91 mg/dL (70-105); Magnesium 1.8 mg/dL (1.6-2.6); Potassium 3.9 mmol/L (3.5-5.1); Sodium 133 mmol/L (136-145)
[2018-07-16] MEDS: Gabapentin 100 MG CAP PO SCH ×3 (08:27→21:18)
[2018-07-16] MEDS: Enoxaparin Sodium 30 MG/0.3 ML SYRINGE SC SCH (08:27)
[2018-07-16] MEDS: Polyethylene Glycol 3350 17 GM Packet PO SCH (08:27)
[2018-07-16] MEDS: Thiamine 100 MG TAB PO SCH (08:27)
[2018-07-16] MEDS: Ibuprofen 800 MG TAB PO SCH ×3 (08:27→21:18)
[2018-07-16] MEDS: Folic Acid 1 MG TAB PO SCH (08:27)
[2018-07-16] MEDS ORDERED: Magnesium Sulfate 4 GM in Sodium Chloride 0.9% 250 ML 250 ML IVPB SCH (13:00)
--- NOTE | 2018-07-16 13:13 | PRG ---
DATE OF SERVICE: 07/16/2018 SUBJECTIVE: Mr. Mcfadden is a 52-year-old man, who was admitted on 07/12/2018 following blunt trauma to the chest. The patient sustained multiple bilateral rib fractures as well as bilateral hemopneumothoraces. Chest tube was removed after the hemopneumothoraces resolved. T10 vertebral and L1-L2 compression fracture is being treated with the TLSO brace. The patient was admitted to the intensive care unit yesterday with a bout of acute onset delirium. This morning, he is awake and alert. He moves all extremities. His mental status is improving. Overnight, the patient was noted with decreasing urinary output. A bladder scan this morning was consistent with urinary retention. The patient was catheterized and almost a L of urine was evacuated. OBJECTIVE: VITAL SIGNS: This morning includes blood pressure of 103/76, pulse which was as high as 141 is now 128, respiratory rate is 14, temperature is 97.6 degrees Fahrenheit, and oxygen saturation is 98% on 3 L by nasal cannula oxygen. The patient was placed on BiPAP overnight nevertheless. HEART: Reveals regular rate with sinus tachycardia. No murmurs or gallops auscultated. LUNGS: Clear to auscultation bilaterally. Breathing, regular and nonlabored. NEUROLOGIC: Reveals no focal deficits present. LABORATORY FINDINGS: Includes CBC with 5700 white blood cells, hemoglobin and hematocrit 8.5 and 25.7 respectively. Platelet count is stable at 253,000. Metabolic profile; sodium is 133, potassium is 3.9, chloride is 104, bicarb is 25, BUN 9, creatinine 0.57, glucose is 91, and magnesium is 1.8. I have personally reviewed the chest x-ray today, which reveals no recurrent pneumothorax. There is residual pulmonary contusion and associated pulmonary atelectasis. IMPRESSION: 1. Post injury day #4, status post blunt chest trauma. 2. Resolved bilateral hemopneumothoraces. 3. Acute metabolic encephalopathy, resolving. 4. Acute hypokalemia. 5. Acute hypomagnesemia. 6. Acute urinary retention. PLAN: 1. Correct abnormal electrolytes. 2. The patient will be started on Flomax and continue with indwelling Gonzalez catheter for next 2 days. 3. Increase activity per Physical and Occupational Therapy. 4. We will ask Speech and Language Pathology to evaluate the patient for cognition. 5. The patient is being evaluated by PM and R for possible inpatient rehabilitation post discharge. 6. Above findings and plan discussed with the patient's family at bedside. They indicated understanding of the information given. I have answered their questions. Job ID: [id number]
[2018-07-16] MEDS ORDERED: Potassium Phosphate 30 MMOL, Magnesium Sulfate 4 GM in Sodium Chloride 0.9% 250 ML 250 ML IVPB SCH (14:00)
--- NOTE | 2018-07-16 21:13 | EKG ---
Test Reason : Blood Pressure : / mmHG Vent. Rate : 130 BPM Atrial Rate : 130 BPM P-R Int : 148 ms QRS Dur : 088 ms QT Int : 296 ms P-R-T Axes : 047 007 014 degrees QTc Int : 435 ms Sinus tachycardia Possible Left atrial enlargement Low voltage QRS Abnormal ECG When compared with ECG of 13-JUL-2018 21:33, (Unconfirmed) ST elevation now present in Anterior leads Nonspecific T wave abnormality now evident in Inferior leads Confirmed by JOAO LIANG, SRosa Elena (4) on 07/16/2018 9:13:13 PM Referred By: KAROLINE Confirmed By:DR. Kimberly SHEPHERD MD
[2018-07-17] MEDS: Sodium Chloride 0.9% 1,000 ML IV SCH ×2 (00:58→17:02)
[2018-07-17 01:41] LABS: Calcium, Ionized 1.23 mmol/L (1.12-1.30); Carboxyhemoglobin (COHb) 1.9 gm% (0.0-3.0); Hemoglobin (Hb) 8.7 g/dL (14.0-18.0); Potassium - ABG Lab 3.77 mmol/L (3.70-5.30)
[2018-07-17 01:44] LABS: CO2 Tension 63.9 mmHg (35.0-45.0); Puncture Site RRADIAL; pH, Arterial 7.23 (7.35-7.45)
[2018-07-17 01:45] LABS: ALV-art Gradient 105.675 (0-20)
[2018-07-17 03:52] LABS: CO2 Tension 58.6 mmHg (35.0-45.0); O2 Tension (PaO2) 80.8 mmHg (80.0-100.0); pH, Arterial 7.27 (7.35-7.45)
[2018-07-17 03:53] LABS: Actual Bicarbonate (HCO3a) 26.3 mEq/L (22-28); Hemoglobin (Hb) 8.6 g/dL (14.0-18.0)
[2018-07-17 03:54] LABS: Calcium, Ionized 1.21 mmol/L (1.12-1.30); Carboxyhemoglobin (COHb) 1.8 gm% (0.0-3.0); Potassium - ABG Lab 3.91 mmol/L (3.70-5.30)
[2018-07-17 03:55] LABS: Puncture Site RRADIAL
[2018-07-17 05:09] LABS: Anion Gap 7 mmol/L (10-20); BUN (Urea Nitrogen) 10 mg/dL (8.4-25.7); Calc. Creatinine Clearance 131 mL/min (70-130); Calcium 8.2 mg/dL (7.8-10.44); Carbon Dioxide 28 mmol/L (22-29); Chloride 104 mmol/L (98-107); Estimated GFR-MDRD Greater than 90; Glucose 88 mg/dL (70-105); Magnesium 1.9 mg/dL (1.6-2.6); Phosphorus 4.6 mg/dL (2.3-4.7); Potassium 3.9 mmol/L (3.5-5.1); Sodium 135 mmol/L (136-145)
[2018-07-17] MEDS: Oxazepam 10 MG CAP PO SCH (05:09)
[2018-07-17] MEDS: traMADol HCl 50 MG TAB PO SCH ×4 (05:12→23:51)
[2018-07-17] MEDS: Acetaminophen 500 MG TAB PO SCH ×4 (05:12→22:12)
--- NOTE | 2018-07-17 07:45 | RAD ---
SINGLE VIEW CHEST: Date: 07/17/18 COMPARISON: 07/16/18. HISTORY: Respiratory distress. FINDINGS: Single view of the chest shows normal sized cardiomediastinal silhouette. Multifocal opacities are se en in the lungs. There are likely small to moderate bilateral pleural effusions. There are multiple l eft rib fractures. No obvious pneumothorax is visualized. IMPRESSION: Stable exam. POS: [facility]
[2018-07-17] MEDS: Enoxaparin Sodium 30 MG/0.3 ML SYRINGE SC SCH (08:40)
[2018-07-17] MEDS: Polyethylene Glycol 3350 17 GM Packet PO SCH (08:40)
[2018-07-17] MEDS: Ibuprofen 800 MG TAB PO SCH ×3 (08:41→22:12)
[2018-07-17] MEDS: Folic Acid 1 MG TAB PO SCH (08:41)
[2018-07-17] MEDS: Thiamine 100 MG TAB PO SCH (08:41)
[2018-07-17] MEDS: Gabapentin 100 MG CAP PO SCH ×3 (08:41→22:11)
--- NOTE | 2018-07-17 10:05 | RAD ---
FXR Abdomen 1 View/KUB History: [Dobbhoff placement] Comparison: Chest radiograph same day Findings: Dobbhoff tube is in place with tip at the second portion of the duodenum. Multifocal airspa ce opacities are similar. Impression: Dobbhoff tube tip projecting over the expected location second portion of the duodenum.
--- NOTE | 2018-07-17 11:53 | PRG ---
DATE OF SERVICE: 07/17/2018 SUBJECTIVE: Mr. Mcfadden is awake and alert today. He had episode of delirium overnight associated with hypoxia. This was resolved with noninvasive mechanical ventilator support. This morning he is on nasal cannula oxygen. He has a very poor cough effort. He is deconditioned and appears quite fatigued. He has not maintained adequate oral intake yesterday. Nursing attempted to place a feeding tube yesterday without success. OBJECTIVE: VITAL SIGNS: This morning include blood pressure 129/91, pulse is 125, respiratory rate is 25, temperature is 97.7 degrees Fahrenheit. Current oxygen saturation is 98% on 3 L by nasal cannula oxygen. HEENT: Reveals pupils are equal, round, and reactive to light and accommodation. NECK: He has no jugular venous distention noted. HEART: Reveals regular rate with sinus tachycardia. No murmurs or gallops auscultated. LUNGS: Clear to auscultation bilaterally. Breathing, regular nonlabored. ABDOMEN: Soft, nontender, nondistended. NEUROLOGIC: Reveals no focal deficits present. Delio Coma Scale is E4, V4, M6. LABORATORY FINDINGS: This morning includes metabolic profile, sodium is 135, potassium is 3.9, chloride is 104, bicarb is 28, BUN is 10, creatinine is 0.58, glucose is 88, magnesium is 1.9, phosphorus is 4.6. IMAGING STUDIES: Chest x-ray today reveals multifocal bilateral pulmonary opacification, slightly worse in the left lung martinez. No pneumothorax or effusion noted. 2D echocardiography obtained yesterday revealed normal ejection fraction greater than 65%. The chamber sizes appear normal. IMPRESSIONS: 1. Post admission day #5 status post blunt chest trauma. 2. Resolved bilateral hemopneumothoraces. 3. Acute metabolic encephalopathy, resolving. 4. Acute hypomagnesemia. 5. Acute pulmonary insufficiency. 6. Chronic malnutrition. PLAN: 1. I was able to successfully place the feeding tube and appropriate position is confirmed by abdominal x-ray. 2. Increase activity per Physical and Occupational Therapy. 3. Correct abnormal electrolytes. 4. The patient had been evaluated by PM and R for possible inpatient rehabilitation post discharge. Above findings and plan discussed with the patient and his elderly father at bedside. They both indicated understanding of information given. I have answered their questions. Job ID: [id number]
[2018-07-17] MEDS: Albuterol Sulfate 1.25 MG/3 ML NEB NEB SCH ×2 (14:40→22:31)
[2018-07-18 05:08] LABS: Band 12 % (5-11); Eosinophils 7 % (0-10); Hemoglobin 8.1 g/dL (14.0-18.0); Lymphocytes 23 % (21-51); MDiff Complete? YES; Mean Corpuscular HGB CONC 32.6 g/dL (32.0-36.0); Mean Corpuscular Volume 95.1 fL (78.0-98.0); Mean Platelet Volume 6.4 fL (7.4-10.4); Monocytes 6 % (0-10); Neutrophil 52 % (42-75); Nucleated RBC 3 % (0); Platelet Count 401 thou/uL (130-400); RBC Distribution Width 13.1 % (11.5-14.5); Red Blood Cell (RBC) Count 2.62 mill/uL (4.70-6.10); White Blood Cell (WBC) Count 7.2 thou/uL (4.8-10.8)
[2018-07-18] MEDS: traMADol HCl 50 MG TAB PO SCH ×3 (05:12→17:49)
[2018-07-18] MEDS: Acetaminophen 500 MG TAB PO SCH ×3 (05:15→17:49)
[2018-07-18 06:00] LABS: Anion Gap 7 mmol/L (10-20); BUN (Urea Nitrogen) 16 mg/dL (8.4-25.7); Calc. Creatinine Clearance 131 mL/min (70-130); Calcium 8.2 mg/dL (7.8-10.44); Carbon Dioxide 30 mmol/L (22-29); Chloride 103 mmol/L (98-107); Estimated GFR-MDRD Greater than 90; Glucose 100 mg/dL (70-105); Magnesium 1.6 mg/dL (1.6-2.6); Phosphorus 3.2 mg/dL (2.3-4.7); Potassium 4.3 mmol/L (3.5-5.1); Sodium 136 mmol/L (136-145)
[2018-07-18] MEDS: Albuterol Sulfate 1.25 MG/3 ML NEB NEB SCH ×3 (06:51→22:58)
[2018-07-18] MEDS: Sodium Chloride 0.9% 1,000 ML IV SCH ×2 (06:59→21:21)
[2018-07-18 07:10] LABS: Actual Bicarbonate (HCO3a) 25.1 mEq/L (22-28); Base Excess (BEa) 1.4 mEq/L (-2.0 to +3.0); CO2 Tension 35.9 mmHg (35.0-45.0); Calcium, Ionized 1.17 mmol/L (1.12-1.30); Carboxyhemoglobin (COHb) 2.1 gm% (0.0-3.0); Hemoglobin (Hb) 8.4 g/dL (14.0-18.0); O2 Tension (PaO2) 102.3 mmHg (80.0-100.0); Potassium - ABG Lab 4.09 mmol/L (3.70-5.30); pH, Arterial 7.46 (7.35-7.45)
[2018-07-18 07:11] LABS: ALV-art Gradient 138.025 (0-20); Puncture Site RRA
[2018-07-18] MEDS ORDERED: Magnesium 2 GM/50 ML 2 GM in Premix Bag 1 BAG IVPB SCH (08:00)
[2018-07-18] MEDS ORDERED: Potassium Phosphate 15 MMOL in Sodium Chloride 0.9% 250 ML 250 ML IVPB SCH (08:00)
[2018-07-18] MEDS ORDERED: Tamsulosin HCl 0.4 MG CAP PO SCH (09:00)
[2018-07-18] MEDS: Thiamine 100 MG TAB PO SCH (09:08)
[2018-07-18] MEDS: Gabapentin 100 MG CAP PO SCH ×3 (09:08→21:21)
[2018-07-18] MEDS: Ibuprofen 800 MG TAB PO SCH ×3 (09:08→21:21)
[2018-07-18] MEDS: Folic Acid 1 MG TAB PO SCH (09:08)
[2018-07-18] MEDS: Enoxaparin Sodium 30 MG/0.3 ML SYRINGE SC SCH (09:09)
[2018-07-18] MEDS: Polyethylene Glycol 3350 17 GM Packet PO SCH (09:09)
--- NOTE | 2018-07-18 16:14 | PRG ---
DATE OF SERVICE: 07/18/2018 SUBJECTIVE: The patient was seen this morning sitting up in bed in the ICU. More alert and awake than the day before. Reported pain was well controlled, and he slept well overnight. Had no active issues. Was able to cough more easily than previously. Still having difficulty with the incentive spirometer. He denies nausea, vomiting, or diarrhea. OBJECTIVE: VITAL SIGNS: Temperature 97.9, blood pressure 151/69, pulse 119, respirations 24, oxygen saturation 100% on 3 L nasal cannula. GENERAL: Frail-appearing middle-aged male, sitting up in bed with mild respiratory distress and clamshell TLSO brace in place. RESPIRATORY: Tachypneic, but without signs of significant respiratory distress. Equal chest rise and fall bilaterally. Diminished lung sounds at the bases, but otherwise clear further up. The patient is occasionally coughing and productive. GI: Abdomen is soft, nontender, nondistended. CARDIAC: Tachycardic, but regular. No murmurs, gallops, or rubs. EXTREMITIES: 2+ pulses in all extremities. No significant swelling noted. Gross motor and sensation intact in all extremities. LABORATORY FINDINGS: White count 7.2, hemoglobin 8.1, hematocrit 24.9, platelets 401. Sodium 136, potassium 4.3, chloride 103, carbon dioxide 30, BUN 16, creatinine 0.58, phos 3.2, magnesium 1.6. PH of 4.76, pCO2 of 35.9, pO2 of 102.3, O2 saturation of 98.1, bicarb of 25.1. DIAGNOSTIC FINDINGS: X-ray of the abdomen completed on 07/17 for evaluation of Dobhoff placement indicates Dobhoff tube tip projecting over the expected location, second portion of the duodenum. ASSESSMENT: 1. Status post blunt chest trauma. 2. Bilateral pneumothoraces, resolved. 3. Bilateral clavicle fractures. 4. Right 1 through 5 and 7 through 9 rib fractures. 5. Left 1 through 5 and 7 through 8 rib fractures. 6. T10 vertebral body fracture. 7. L1 and L2 compression fractures. 8. Acute respiratory distress, improved. 9. Bilateral pulmonary effusions, improved. 10. Tachycardia, improved. 11. History of alcohol abuse. PLAN: The patient's mentation and respiratory efforts have improved tremendously today. We will move him to the regular surgical nursing floor. We will continue BiPAP at night and also as needed. Tube feeds will be changed to run between 2200 and 0400, so the patient can continue to take a regular diet during the daytime. We will continue normal saline at 75 an hour for today. The patient is having difficulty coordinating with the incentive spirometer, so Respiratory to provide the patient with the Acapella and instructions of use. We will discontinue Gonzalez tomorrow. The patient is currently on Flomax. We will replace magnesium today. Encouraging more p.o. intake and more physical activity. We will continue the patient's current pain regimen. The patient was seen and examined this morning with Dr. Garvey in the ICU. Job ID: [id number]
[2018-07-18] MEDS ORDERED: Atropine Sulfate 1 mg/10 ml Syringe ONE (22:00)
[2018-07-18] MEDS ORDERED: EPINEPHrine 1 MG/10 ML Abboject SYRINGE ONE (22:00)
[2018-07-18] MEDS: fentaNYL Citrate/PF 2,000 MCG in Sodium Chloride 0.9% 60 ML IV SCH (22:37)
[2018-07-18 22:53] LABS: Actual Bicarbonate (HCO3a) 22.7 mEq/L (22-28); Base Excess (BEa) -3.2 mEq/L (-2.0 to +3.0); Calcium, Ionized 1.04 mmol/L (1.12-1.30); Carboxyhemoglobin (COHb) 3.8 gm% (0.0-3.0); Hemoglobin (Hb) 5.2 g/dL (14.0-18.0); O2 Tension (PaO2) 69.3 mmHg (80.0-100.0); Potassium - ABG Lab 3.24 mmol/L (3.70-5.30); pH, Arterial 7.31 (7.35-7.45)
[2018-07-18 22:54] LABS: Puncture Site L BRACHIAL
[2018-07-18] MEDS ORDERED: Sodium Chloride 0.9% 1,000 ML IV SCH (23:00)
--- NOTE | 2018-07-18 23:04 | RAD ---
FFrontal radiograph chest: 07/18/2018 COMPARISON: 07/17/2018 HISTORY: Intubated patient, respiratory distress FINDINGS: Supine imaging limits assessment for pneumothorax and pleural fluid. There is an endotrache al tube terminating at the level of the clavicular heads. Dobbhoff tube extends into upper abdomen. T here is gaseous distention of the stomach. Hazy density throughout both lungs suggests a combination of pleural effusions and multifocal pulmonary parenchymal consolidation, which includes bilateral per ihilar regions, bilateral upper lobes, and bilateral lung bases. The extent of pleural and parenchyma l opacity is difficult to fully assess secondary to supine portable technique. There are numerous fra ctures involving bilateral ribs as well as the right scapula, better assessed on recent CT examinatio n. IMPRESSION: Lines and tubes as detailed above. Bilateral pleural and parenchymal opacity, not optimal ly assessed on this examination as detailed above.
[2018-07-18 23:11] LABS: Hemoglobin 5.6 g/dL (14.0-18.0); Mean Corpuscular HGB CONC 31.8 g/dL (32.0-36.0); Mean Corpuscular Hemoglobin 31.2 pg (27.0-31.0); Mean Platelet Volume 6.7 fL (7.4-10.4); Platelet Count 337 thou/uL (130-400); RBC Distribution Width 13.2 % (11.5-14.5); White Blood Cell (WBC) Count 10.7 thou/uL (4.8-10.8)
[2018-07-18 23:18] LABS: Lactic Acid 1.8 mmol/L (0.5-2.2)
[2018-07-18 23:25] LABS: Anion Gap 13 mmol/L (10-20); BUN (Urea Nitrogen) 18 mg/dL (8.4-25.7); Calc. Creatinine Clearance 124 mL/min (70-130); Calcium 7.3 mg/dL (7.8-10.44); Carbon Dioxide 21 mmol/L (22-29); Chloride 105 mmol/L (98-107); Estimated GFR-MDRD Greater than 90; Glucose 98 mg/dL (70-105); Magnesium 2.2 mg/dL (1.6-2.6); Phosphorus 4.8 mg/dL (2.3-4.7); Potassium 3.6 mmol/L (3.5-5.1); Sodium 135 mmol/L (136-145)
[2018-07-18 23:28] LABS: Band 28 % (5-11); Eosinophils 1 % (0-10); Lymphocytes 18 % (21-51); MDiff Complete? YES; Monocytes 2 % (0-10); Neutrophil 51 % (42-75); Nucleated RBC 3 % (0); Platelet Morphology Comment Appears Adequate
[2018-07-19] MEDS ORDERED: Rocuronium Bromide 10 MG/ML (10ML VIAL) ONE (00:10)
[2018-07-19] MEDS ORDERED: Sodium Bicarb 50 MEQ/50 ML Abboject 8.4% SYRINGE ONE (00:10)
[2018-07-19] MEDS ORDERED: Hydrocortisone Sod Succ/PF 100 mg/2 ml Vial IVP SCH (00:30)
[2018-07-19] MEDS: Sodium Chloride 0.9% 1,000 ML IV SCH (01:00)
[2018-07-19] MEDS: Acetaminophen 500 MG TAB PO SCH ×2 (01:19→04:25)
[2018-07-19] MEDS: traMADol HCl 50 MG TAB PO SCH ×2 (01:19→04:25)
--- NOTE | 2018-07-19 03:01 | PDOC.EVN ---
Event Note - Event Note Event Note: I was paged by the nursing floor about Mr.s Mcfadden overnight for a code green. It was reported to me that the patient became unresponsive and hypoxic for which a code green was called. Upon evaluation of the code green team it was determined the patient needed to be intubated and the ED physician was notified. On the first attempt of intubation it was not successful and the patient subsequently became hypertensive and bradycardic until a pulse was lost. CPR was started and he received 0.5mg atropine x2, 1mg epi, and 1L IVF bolus. He was then successfully intubated and ROSC was acheived after 3 min of CPR. He was transferred to the ICU. I arrived to the patients bedside in the ICU and he was tachycardic to the 140s and hypotensive with SBP in the 80s. 1L NS was given and his blood pressure responded. Labs, ECG, ortiz cultures, and CXR were completed. Dr Garvey was contacted via phone who advised to give more IVF fluids as the patient was becoming hypotensive again. An additional 1L NS bolus was given. He also requested the Commonwealth Attorney on be consulted as Dr. Garvey is going out of town in the morning. Dr. Haddad was contacted via phone and was updated on the condition of the patient. By this time his blood pressure had improved. Precedex gtt and fentanyl gtt were started. He reported he would see the patient in the morning. Lab findings demonstrated anemia with a Hgb 5.4 and 3U PRBCs where given. No external signs of bleeding was identified and there was no concern for bleeding from previous traumatic injuries. NGT was placed for eval of possible GI bleed but aspirate was not concerning. He did have a BM during his resuscitation which was not concerning for GI bleed. A cortisol level was low and 100mg SoluCortif was given followed by 50mg q8hrs for adrenal insufficiency. Potassiums was replaced. Lovenox was held. Echo was ordered for the morning and troponins were ordered. ECG was unremarkable with sinus tach. Blood pressure and HR improved with blood administration. Dr. Burrell was consulted for a central line placement and it was completed. The patients mother was with him when he became unresponsive. Once he was stable I did update his parents, sister, and brother in law. All questions were answered. Maria Fernanda Still PA-C Trauma Surgery
[2018-07-19 03:04] LABS: Actual Bicarbonate (HCO3a) 22.9 mEq/L (22-28); Base Excess (BEa) -2.5 mEq/L (-2.0 to +3.0); CO2 Tension 41.9 mmHg (35.0-45.0); Calcium, Ionized 1.08 mmol/L (1.12-1.30); Carboxyhemoglobin (COHb) 1.1 gm% (0.0-3.0); Hemoglobin (Hb) 10.4 g/dL (14.0-18.0); O2 Tension (PaO2) 102.3 mmHg (80.0-100.0); Potassium - ABG Lab 4.78 mmol/L (3.70-5.30); pH, Arterial 7.36 (7.35-7.45)
[2018-07-19 03:06] LABS: ALV-art Gradient 273.125 (0-20); Puncture Site L BRACHIAL
[2018-07-19] MEDS ORDERED: Calcium Chloride 1 GM/10 ML Abboject SYRINGE IVP SCH (03:15)
[2018-07-19 03:57] LABS: #Eosinphils 0.1 thou/uL (0.0-0.7); #Lymphocytes 1.3 thou/uL (1.20-3.40); #Monocytes 0.4 thou/uL (0.11-0.59); #Neutrophils 8.4 thou/uL (1.40-6.50); %Basophils 0.4 % (0.0-1.0); %Eosinophils 0.6 % (0.0-10.0); %Lymphocytes 12.9 % (21.0-51.0); %Monocytes 4.1 % (0.0-10.0); Hemoglobin 9.9 g/dL (14.0-18.0); Mean Corpuscular HGB CONC 32.7 g/dL (32.0-36.0); Mean Corpuscular Hemoglobin 29.4 pg (27.0-31.0); Mean Platelet Volume 6.7 fL (7.4-10.4); Platelet Count 336 thou/uL (130-400); Red Blood Cell (RBC) Count 3.37 mill/uL (4.70-6.10); White Blood Cell (WBC) Count 10.2 thou/uL (4.8-10.8)
[2018-07-19 04:12] LABS: Anion Gap 9 mmol/L (10-20); BUN (Urea Nitrogen) 19 mg/dL (8.4-25.7); Calc. Creatinine Clearance 135 mL/min (70-130); Calcium 7.4 mg/dL (7.8-10.44); Carbon Dioxide 25 mmol/L (22-29); Chloride 106 mmol/L (98-107); Estimated GFR-MDRD Greater than 90; Glucose 94 mg/dL (70-105); Magnesium 1.8 mg/dL (1.6-2.6); Phosphorus 3.7 mg/dL (2.3-4.7); Potassium 4.9 mmol/L (3.5-5.1); Sodium 135 mmol/L (136-145)
--- NOTE | 2018-07-19 06:03 | OP ---
DATE OF PROCEDURE: 07/19/2018 PREOPERATIVE DIAGNOSIS: Hemodynamic instability with severe anemia. POSTOPERATIVE DIAGNOSIS: Hemodynamic instability with severe anemia. OPERATION PERFORMED: Placement of left subclavian 7-Algerian triple-lumen central line. ANESTHESIA: None. INDICATIONS: The patient is a 52-year-old white male. He was transferred this evening from the surgical floor to the intensive care unit. He was intubated. He had loss of consciousness with some unresponsiveness while on the floor. He was found to be significantly anemic, but unknown exactly why. Central line placement is performed for further monitoring and treatment. DESCRIPTION OF PROCEDURE: Informed consent was obtained from his family. He was placed in Trendelenburg position in his bed in the intensive care unit. His TLSO brace was opened to give exposure with left chest. Left periclavicular area was prepped with ChloraPrep and draped in sterile fashion. Large was passed through the clavicle on the initial pass. A guidewire was passed through the needle. Needle was removed, skin was incised, tract was dilated, seven-Algerian triple-lumen catheter was passed over the wire without difficulty. Each of the 3 lumens aspirated blood. Free lumen was flushed with heparinized saline. The catheter was secured at skin exit site with 3-0 silk suture. Sterile occlusive dressing was applied. Postprocedure chest x-ray documents good position of the catheter. I also placed a nasogastric tube at that time and it shows good position as well. Job ID: [id number]
[2018-07-19] MEDS: Albuterol Sulfate 1.25 MG/3 ML NEB NEB SCH (06:38)
[2018-07-19] MEDS ORDERED: Vancomycin HCl 1 GM in Premix Bag 1 BAG IVPB SCH (09:00)
--- NOTE | 2018-07-19 09:29 | RAD ---
KUB: HISTORY: Tube placement. FINDINGS: This film is of the upper abdomen. It shows NG tube in the stomach and Dobbhoff feeding tube which a ppears to be in the 2nd portion of the duodenum. IMPRESSION: Dobbhoff feeding tube in the 2nd portion of the duodenum. Nasogastric tube within the stomach. POS: [facility]
[2018-07-19] MEDS ORDERED: Sodium Chloride 0.9% 1,000 ML IV SCH (09:31)
--- NOTE | 2018-07-19 09:38 | RAD ---
PORTABLE CHEST: Date: 07/19/18 HISTORY: Central line placement. COMPARISON: Exam approximately 2 hours prior. FINDINGS: There has been interval placement of the left subclavian line, catheter tip overlies the superior sejal a cava. No signs of pneumothorax. No other interval change since the prior exam. IMPRESSION: Placement of left subclavian line. No signs of pneumothorax. POS: [facility]
[2018-07-19] MEDS: Vancomycin HCl 1 GM in Premix Bag 1 BAG IVPB SCH ×2 (10:14→20:15)
[2018-07-19] MEDS: Hydrocortisone Sod Succ/PF 100 mg/2 ml Vial IVP SCH ×2 (10:19→18:32)
--- NOTE | 2018-07-19 11:21 | CT ---
CT OF THE ABDOMEN AND PELVIS WITH IV CONTRAST: Date: 07/19/18 INDICATION: History of Code Green with rule out bleed and hemoglobin drop. COMPARISON: CT of the chest, abdomen, and pelvis dated 07/12/18. FINDINGS: There is a small residual anterior apical pneumothorax. There is a prominent right and small left ple ural effusion. There is bibasilar air space opacity, suspicious for compressive atelectasis. There ar e air bronchograms within the opacity in the left lower lobe. A component of pneumonia cannot be excl uded. The liver, spleen, pancreas, adrenal glands, and kidneys are normal appearing. There is a feeding tub e within the region of the duodenum. There is diffuse anasarca. There is mild free fluid in the pelvi s. There is a Gonzalez catheter in place with a partially decompressed bladder. There is a rectal tube i n place. Small and large bowel are of normal caliber. There is a normal appendix in the right lower q uadrant. Compression abnormalities of L1, L2, and T10 appear similar appearing. There are multiple bilateral r ib fractures that appear unchanged. IMPRESSION: 1. Bilateral pleural effusions, mild ascites and anasarca, suspicious for third spacing. 2. There is some moderate right and small left pleural effusion. There is subtle increased density w ithin portions of the right-sided pleural effusions which may reflect a small amount of hemorrhage wi thin the right-sided pleural space or a component of hemothorax. There is a small residual right-side d anterior pneumothorax that is partially visualized. 3. Air space consolidation left lower lobe may be related to a component of volume loss; however, pn eumonia is not excluded. 4. Dobbhoff feeding tube, Gonzalez catheter, and rectal tube. 5. Stable bilateral rib fractures, T10, L1, and L2 compression abnormalities. POS: [facility]
--- NOTE | 2018-07-19 11:38 | CT ---
CT ANGIO CHEST PERFORMED WITH IV CONTRAST ENHANCEMENT WITH 3D RECONSTRUCTIONS: Date: 07/19/18 HISTORY: Tachycardia. Dyspnea. COMPARISON: 07/15/18. FINDINGS: Multiple bilateral rib fractures are again demonstrated. Right-sided pneumothorax is slightly increas ed in size as compared to the prior examination. There are now massive bilateral pleural effusions, r ight larger than left. There is some alveolar opacity within slightly more parahilar distribution, no t entirely typical for edema, and other entities such as aspiration should be considered. Endotrachea l tube is in place. NG and Dobbhoff tubes are seen extending below the hemidiaphragm. There is good pulmonary artery opacification and there is no CT evidence for pulmonary embolus. The t horacic aorta is normal in caliber. IMPRESSION: 1. Multiple bilateral rib fractures. 2. Right-sided pneumothorax has increased in size as compared to prior exam. No left-sided pneumotho rax seen at this time. 3. Alveolar lung apical which could be on the basis of aspiration, contusion, or pulmonary edema. 4. Development of massive bilateral effusions, right larger than left, with atelectatic changes in t he lung bases. POS: [facility]
[2018-07-19] MEDS: Piperacillin/Tazobactam 3.375 GM in Sodium Chloride 0.9% 100 ML IVPB SCH ×3 (11:52→23:11)
--- NOTE | 2018-07-19 12:07 | CON ---
DATE OF CONSULTATION: 07/19/2018 SERVICE: Pulmonary Medicine. REASON FOR CONSULT: Respiratory failure. HISTORY OF PRESENT ILLNESS: The patient is a 52-year-old white male, who was in his usual state of health on the 12 of July when a tree limb fell on him causing multiple traumatic injuries. Ultimately, he presented to the emergency department. He had multiple rib fractures. He was initially placed on the floor, but developed respiratory failure and required intubation. He was extubated successfully and was actually up walking the hallways. That being said, while his brace on the chest was being manipulated, he once again lost consciousness, dropped his blood pressure, became increasingly tachycardic before developing bradycardia, and went apneic. He ended up getting chest compressions for brief period of time. After this, he lapsed, he had spontaneous return of circulation after difficult intubation. He cannot provide any additional elements of the history right now, though he is following all commands and spontaneously breathing. He spontaneously moves all 4 extremities. He has some chest discomfort and indicates, he has a little discomfort in breathing because it feels like he is breathing through a straw but overall, feels like he is getting enough air at this moment. Multiple adjustments have been made to the ventilator in order to improve patient's comfort. Otherwise, yesterday, he was noted to be tachycardic and hypothermic. PAST MEDICAL HISTORY: None. PAST SURGICAL HISTORY: 1. Left foot surgery for heel crush injury, roughly 9 years ago. 2. Left subclavian central venous catheter. ALLERGIES: NO KNOWN DRUG ALLERGIES. MEDICATIONS: List of his inpatient medication was reviewed. No specific updates were made at this time. FAMILY HISTORY: Noncontributory. SOCIAL HISTORY: He is a nonsmoker. He drinks a pack of beer on most days, sometimes more. He has no exposure to chemicals, dust, asbestos, or tuberculosis. He works. 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 REVIEW OF SYSTEMS: This cannot be obtained as the patient is currently intubated today. PHYSICAL EXAMINATION: VITAL SIGNS: Afebrile. Last night, he is hypothermic to 94.5. Pulse 107, blood pressure 121/72, respirations 18, saturation 97% on 31% FiO2 and a PEEP of 5. GENERAL: The patient is awake and alert, in no apparent distress. LUNGS: Decent air entry. There is no rhonchi present. Dependent crackles are noted. HEART: Normal rate and regular. ABDOMEN: Soft, nontender, and nondistended. Bowel sounds are positive. MUSCULOSKELETAL: No cyanosis or clubbing. There is no pitting in the bilateral lower extremities. NEUROLOGIC: Grossly nonfocal. LABORATORY DATA: WBC 10.2, hemoglobin 9.9, platelets 336,000. PH 7.36, pCO2 of 41, PO2 of 102. Basic metabolic profile is otherwise unremarkable with a creatinine of 0.56. Sodium 135, calcium 7.4, magnesium 1.8. Troponin is negative x1. Cortisol 14.6. Urinalysis is unremarkable from the . Urine drug screen was previously unremarkable. SUSAN screen is negative. Hepatitis serologies were nonreactive. HIV is negative. One of two blood cultures is growing gram-negative vahid. Respiratory culture is negative to date. ASSESSMENT: 1. Acute hypoxic respiratory failure. 2. Severe sepsis. 3. Pulseless electrical activity arrest, resolved. 4. Multiple traumatic injuries including rib fractures. 5. Acute blood loss anemia. DISCUSSION AND PLAN: The patient is already scheduled to go down for a CT of the chest. This will give us the opportunity to see whether or not there is any large collection of fluid that needs a sample. He lost a significant amount of blood in a very short period of time. Hemothorax is certainly a possibility. That being said, it was not evident on the chest x-ray. I will repeat hemoglobin to make certain his appropriate rise of 3 units of blood that he got yesterday is stable. We will continue to trend hemoglobin through time. Pulmonary Critical Care will continue to follow along in this location. He has now failed extubation on one occasion. I would likely keep him on the ventilator through the weekend. On Sunday, we will consider extubating him. If he fails again, tracheostomy would likely be required. I agree with empiric antibiotics. We will get rid of the vancomycin since the gram-negative vahid has already shown up in the blood. Critical care time: 30 minutes. Job ID: [id number] MTDD
--- NOTE | 2018-07-19 14:33 | EKG ---
Test Reason : STAT POST ARREST Blood Pressure : / mmHG Vent. Rate : 142 BPM Atrial Rate : 142 BPM P-R Int : 000 ms QRS Dur : 104 ms QT Int : 342 ms P-R-T Axes : 067 -60 -35 degrees QTc Int : 526 ms Sinus tachycardia Left axis deviation Low voltage QRS Nonspecific ST and T wave abnormality Abnormal ECG When compared with ECG of 15-JUL-2018 12:56, ST now depressed in Inferior leads Inverted T waves have replaced nonspecific T wave abnormality in Inferior leads Nonspecific T wave abnormality has replaced inverted T waves in Anterior leads Nonspecific T wave abnormality now evident in Lateral leads Confirmed by JOAO LIANG, DR. Harris ([id number]) on 07/19/2018 2:32:50 PM Referred By: RENETTA RAMEY Confirmed By:DR. Kimberly SHEPHERD MD
[2018-07-19] MEDS ORDERED: ISOVUE-370 76%-LOCM 1 ML ONE (15:06)
[2018-07-19] MEDS ORDERED: Lidocaine 1% w/Epinephrine 1:100K 20 ML VIAL FS SCH (15:15)
[2018-07-19] MEDS ORDERED: Lidocaine 1% w/Epinephrine 1:100K 20 ML VIAL ONE (15:31)
[2018-07-19 15:36] LABS: Hemoglobin 10.3 g/dL (14.0-18.0)
--- NOTE | 2018-07-19 16:44 | RAD ---
FExam: Chest one view HISTORY:Chest tube placement Comparison: 07/19/2018 FINDINGS: Cardiac silhouette:Normal Pulmonary vessels: Probable small right-sided pleural effusion. Costophrenic angles: No significant pleural fluid Interval placement of a left and right-sided chest tube. Small bilateral apical pneumothorax cannot b e completely excluded. Redemonstration of a nasogastric tube, gastric feeding tube and left-sided central venous catheter. Osseous abnormalities: Rib fractures are noted. IMPRESSION: 1. Interval placement of bilateral chest tubes. Small bilateral apical pneumothoraces cannot be exclu ded. 2. Probable small right-sided pleural effusion.
[2018-07-19] MEDS: Acetaminophen 1,000 MG in Premix Bag 1 BAG IVPB SCH ×2 (18:26→23:11)
--- NOTE | 2018-07-19 19:09 | PRG ---
DATE OF SERVICE: 07/19/2018 SUBJECTIVE: Mao Mcfadden is hospital day 7, status post crush injury to his chest. He has had a prolonged hospital course secondary to altered mental status and respiratory insufficiency as a result of his chest trauma. After being transferred to the floor and overnight, the patient had a decrease in his mentation, eventually becoming unresponsive and hypoxic. The patient eventually had a bradycardic arrest. Breath was achieved after approximately 3 minutes of CPR and he was transferred to the ICU. For further details, please see the admit note overnight. Upon my evaluation this morning, the patient is calm on the ventilator and following commands. Family is at bedside. He has remained hemodynamically stable after 3 units of PRBC and 3 L of IV fluid. Urine output has been greater than 50 mL/h. OBJECTIVE: VITAL SIGNS: Pulse 107, blood pressure 145/79, and O2 saturation 94%. GENERAL: The patient is intubated, lightly sedated. HEENT: Eyes, pupils are PERRL. Extraocular movements are intact. NECK: Supple. Trachea is midline. PULMONARY: Lung sounds are distant bilaterally. CARDIOVASCULAR: Tachycardic. No obvious murmurs, rubs, or gallops. He is currently wearing his clamshell TLSO. GI: Abdomen is soft, nontender, and nondistended. Skin tears with clear dressing on left abdomen. MUSCULOSKELETAL: Follows commands all four extremities with no focal deficit noted. NEUROLOGIC: RASS of 0 to -1. No focal deficit noted. LABORATORY FINDINGS: WBC 10.2, hemoglobin 9.9, hematocrit 30.3, platelet count 336. Sodium 135, potassium 4.9, chloride 106, carbon dioxide 25, BUN 19, creatinine 0.56, glucose 94, cortisol overnight 14.6. Microbiology; gram-negative bacteremia. Respiratory culture with moderate gram-positive cocci in clusters, pairs, and chains with gram-negative rods. ASSESSMENT: 1. Status post crush injury secondary to tree. 2. Bilateral hemopneumothorax, previously resolved and chest tubes removed. 3. Bilateral clavicle fractures. 4. Right 1st through 5th and 7th through 9th rib fractures. 5. Left 1st through 5th and 7th and 8th rib fractures. 6. T10 vertebral body fracture. 7. L1 and L2 compression fractures. 8. Acute hypoxic respiratory failure. 9. Hypovolemic shock. 10. Acute blood loss anemia, improved. 11. Adrenal insufficiency. 12. Hospital-acquired pneumonia. 13. Gram-negative bacteremia. 14. Acute traumatic pain. PLAN: Given the patient's significant drop in his hemoglobin and no obvious external source of bleeding or bleeding in the GI tract, we will obtain CT chest, abdomen, and pelvis at this time. Continue IV steroids. Continue sedation with Precedex and fentanyl. Start IV antibiotics given microbiology. The patient has been seen and evaluated by Pulmonary/Critical Care. We will follow their input and recommendations. Continue to follow urine output closely. Resuscitate as necessary. Plan of care was discussed with the patient's family at bedside, who vocalized their understanding. Given the patient's prolonged hospital course and likely prolonged recovery, we will consult Palliative Care for the patient's family support. The patient has been seen and evaluated by Dr. Cade. AMENDMENT: The patient's CT chest, abdomen, and pelvis was reviewed. He has significant bilateral right greater than left pleural effusions. Results were discussed with Dr. Cade. Bilateral chest tubes will be placed. Consent obtained from family. Job ID: [id number]
[2018-07-19] MEDS: Famotidine 20 MG TAB PO SCH (20:14)
[2018-07-19] MEDS: fentaNYL Citrate/PF 2,000 MCG in Sodium Chloride 0.9% 60 ML IV SCH (22:53)
[2018-07-20] MEDS: Hydrocortisone Sod Succ/PF 100 mg/2 ml Vial IVP SCH ×3 (01:06→17:09)
--- NOTE | 2018-07-20 01:26 | OP ---
DATE OF PROCEDURE: 07/19/2018 INDICATION FOR PROCEDURE: Right hemopneumothorax. DESCRIPTION OF PROCEDURE: A time-out was completed verifying correct patient, procedure, site, and positioning. Informed consent was obtained from the family prior to the procedure. The patient was prepped and draped in a sterile fashion. The right chest was then anesthetized with 1% lidocaine with epinephrine. A small skin incision was made in the mid-axillary line at the inframammary crease. Blunt dissection was used and subcutaneous tunnel was created. The pleural space was then entered bluntly and a gush of air and blood was observed. A finger was inserted into the space to check for proper anatomy. A 32-Tristanian thoracostomy tube was inserted using a Lorraine clamp and positioned appropriately. The tube was then attached to suction. Tube was sutured securely to the skin and a sterile dressing was applied. Postprocedure chest x-ray was obtained, official read pending. There was an immediate return of approximately 1100 mL of dark serosanguineous fluid. The patient tolerated the procedure well, and there were no immediate complications noted. Job ID: [id number]
--- NOTE | 2018-07-20 01:35 | OP ---
DATE OF PROCEDURE: 07/19/2018 INDICATIONS FOR PROCEDURE: Left pleural effusion/hemothorax. DESCRIPTION OF PROCEDURE: A time-out was completed verifying correct patient, procedure, site, and positioning. The patient was appropriately positioned for left chest tube placement. His left chest was then prepped and draped in a sterile fashion. 1% lidocaine with epinephrine was used to anesthetize the surrounding skin. A small skin incision was made in the mid-axillary line at the level of the inframammary crease. Blunt dissection was used to create a subcutaneous tunnel. The pleural space was then entered bluntly. A gush of blood was observed. A finger was then inserted into the pleural space to check the anatomy. A 28-Peruvian chest tube was inserted using a Lorraine clamp and positioned appropriately. The chest tube was then sutured securely to the skin and a sterile dressing was applied. A Pleur-evac was attached to the chest tube and a postprocedure chest x-ray was obtained. There was an immediate return of approximately 350 mL of bright serosanguineous drainage. The patient tolerated the procedure well, and there were no immediate complications. Job ID: [id number] [facility]
[2018-07-20 05:16] LABS: #Lymphocytes 1.1 thou/uL (1.20-3.40); #Monocytes 0.6 thou/uL (0.11-0.59); #Neutrophils 11.8 thou/uL (1.40-6.50); %Basophils 0.1 % (0.0-1.0); %Eosinophils 0.1 % (0.0-10.0); %Lymphocytes 8.4 % (21.0-51.0); %Monocytes 4.6 % (0.0-10.0); %Neutrophils 86.8 % (42.0-75.0); Hemoglobin 8.8 g/dL (14.0-18.0); Mean Corpuscular HGB CONC 32.6 g/dL (32.0-36.0); Mean Corpuscular Hemoglobin 28.6 pg (27.0-31.0); Mean Corpuscular Volume 87.7 fL (78.0-98.0); Mean Platelet Volume 6.4 fL (7.4-10.4); Platelet Count 407 thou/uL (130-400); RBC Distribution Width 15.1 % (11.5-14.5); Red Blood Cell (RBC) Count 3.08 mill/uL (4.70-6.10); White Blood Cell (WBC) Count 13.6 thou/uL (4.8-10.8)
[2018-07-20 05:37] LABS: Magnesium 1.9 mg/dL (1.6-2.6); Phosphorus 2.7 mg/dL (2.3-4.7)
[2018-07-20] MEDS: Acetaminophen 1,000 MG in Premix Bag 1 BAG IVPB SCH ×3 (06:12→17:26)
[2018-07-20] MEDS: Piperacillin/Tazobactam 3.375 GM in Sodium Chloride 0.9% 100 ML IVPB SCH ×4 (06:12→22:54)
[2018-07-20 07:01] LABS: Actual Bicarbonate (HCO3a) 26.7 mEq/L (22-28); Base Excess (BEa) 2.8 mEq/L (-2.0 to +3.0); CO2 Tension 38.3 mmHg (35.0-45.0); Calcium, Ionized 1.16 mmol/L (1.12-1.30); Carboxyhemoglobin (COHb) 1.4 gm% (0.0-3.0); Hemoglobin (Hb) 9.3 g/dL (14.0-18.0); O2 Tension (PaO2) 66.1 mmHg (80.0-100.0); Potassium - ABG Lab 4.22 mmol/L (3.70-5.30); pH, Arterial 7.46 (7.35-7.45)
[2018-07-20 07:02] LABS: Puncture Site RRA
[2018-07-20 07:03] LABS: ALV-art Gradient 92.795 (0-20)
--- NOTE | 2018-07-20 07:39 | RAD ---
FRadiograph chest one view: 07/20/2018 6:37 AM HISTORY: Follow-up pneumothorax and respiratory failure COMPARISON: 07/19/2018 4:28 PM FINDINGS: Endotracheal tube, Dobbhoff feeding tube, NG tube, left subclavian central line, and bilateral chest tubes remain. Subsegmental atelectasis in right upper lobe. Small right pleural effusion. No pneumoth orax detectable. The only interval change is the development of a new region of haziness in the left midlung zone, perhaps representing trapped fluid in the major fissure. IMPRESSION: 1. Subtle interval development of haziness in the left midlung field, perhaps representing trapped fl uid in fissure. 2. No other interval change.
[2018-07-20] MEDS: Famotidine 20 MG TAB PO SCH ×2 (08:22→21:00)
[2018-07-20] MEDS: Vancomycin HCl 1 GM in Premix Bag 1 BAG IVPB SCH (08:23)
[2018-07-20] MEDS ORDERED: Promethazine HCl 25 MG/ML VIAL IM PRN (12:12)
[2018-07-20] MEDS ORDERED: Morphine CADD 1 MG/ML CADD IV PRN (12:12)
[2018-07-20] MEDS ORDERED: Ondansetron PF 4 MG/2 ML Vial IVP PRN (12:12)
[2018-07-20] MEDS ORDERED: diphenhydrAMINE 25 MG CAP PO PRN (12:12)
[2018-07-20] MEDS ORDERED: Naloxone HCl 0.4 mg/ml Vial IV PRN (12:12)
[2018-07-20] MEDS ORDERED: diphenhydrAMINE 50 MG/ML VIAL IM/IV PRN (12:12)
[2018-07-20] MEDS ORDERED: Zolpidem Tartrate 5 MG TAB PO PRN (12:12)
--- NOTE | 2018-07-20 12:21 | PRG ---
DATE OF SERVICE: 07/20/2018 SUBJECTIVE: Mao Mcfadden is awake, alert, using his cellphone while he is on ventilator. He is in no distress. He has no new complaints other than the discomfort associated with his injuries. OBJECTIVE: VITAL SIGNS: Heart rate 116, respiratory rate 18, minute volume up to 9 L a minute, oximetry is 94%. His volume was turned down to 5/5 and his minute volume remained 8 to 9 L. Intake and outputs negative 3118. He had 1260 out of his right chest tube and 560 out of his left chest tube. He had 1300 mL gastric drainage. His lungs are clear. Heart regular rhythm. Abdomen is soft. LABORATORY STUDIES: White count 13.6, hemoglobin 8.8, platelets 407. Sodium 135, potassium 4.9, chloride 106, bicarbonate 25, BUN 19, and creatinine 0.56. IMPRESSION: Respiratory failure after a tree fell on him. His injuries appear to be stabilizing. He does not appear to be alcohol withdrawal. He met criteria for extubation. He passed a leak test. He has been successfully extubated and is stable at time of this dictation. CRITICAL CARE TIME: 30 minutes. Job ID: [id number] MTDD
--- NOTE | 2018-07-20 17:13 | PRG ---
DATE OF SERVICE: 07/20/2018 SUBJECTIVE: The patient is hospital day #8, status post crush injury to his chest. The patient was on the floor when he sustained a hypoxic cardiac arrest. He has subsequently had returned the circulation and underwent bilateral chest tube placement. Overnight, he remained in the critical care unit on the mechanical ventilator and did not have any issues. This morning, when I came in, he was awake, following all commands. As a matter of fact, he was actually texting on his phone when I first came in. The patient was able to take a good strong deep breath and likely to be extubated this morning once the gang knife fish chopper is evaluating. OBJECTIVE: VITAL SIGNS: Temperature is 99.0, heart rate 95, blood pressure 143/81, respirations 20, oxygen saturation 98%. GENERAL: The patient is resting comfortably in bed. He is awake and following all commands. HEENT: Unremarkable. LUNGS: Clear to auscultation with good inspiratory and expiratory effort, though there is occasional bilateral rhonchi, but not consistently. HEART: Regular rate and rhythm. ABDOMEN: Soft, flat, nontender with active bowel sounds. The patient does have his clamshell TLSO brace on at this time, making it difficult to evaluate his chest tube at the chest wall. Otherwise, the chest tube did not show any air leak in the atrium. EXTREMITIES: Neurovascularly intact x4. LABORATORY FINDINGS: White blood cell count 13.6, hemoglobin 8.8, hematocrit 27.0, platelets 407. RADIOGRAPHIC REPORT: AP chest shows subtle interval development of haziness of left mid lung field, perhaps representing trapped fluid in the fissure. Otherwise, no interval change. ASSESSMENT: 1. Status post crush injury to chest. 2. Bilateral hemopneumothorax. 3. Bilateral clavicle fractures. 4. Right ribs 1 through 5 and 7 through 9 fractures. 5. Left 1 through 5, and 7 and 8 rib fractures. 6. T10 vertebral body fracture. 7. L1-L2 compression fracture. 8. Acute hypoxic respiratory failure, improved. 9. Hypovolemic shock, resolved. 10. Acute blood loss anemia, improved. 11. Adrenal insufficiency, improved. 12. Hospital-acquired pneumonia, under treatment. 13. Gram-negative bacteremia, under treatment. 14. Acute traumatic pain, stable. PLAN: Plan will be to continue supportive care. Repeat labs and chest x-ray in the morning. The chest tubes will remain at suction. Hopefully, the patient will be able to be extubated today. After extubation, we will likely ask Anesthesia to provide this with a STOREROOM KEEPER for pain control and reassess all this tomorrow. Evaluation and examination were done with Dr. Cade in the critical care unit this morning. Job ID: [id number]
[2018-07-20 20:46] LABS: Vancomycin, Trough 9.7 ug/mL
[2018-07-20] MEDS ORDERED: Vancomycin HCl 1.5 GM in Sodium Chloride 0.9% 250 ML 300 ML IVPB SCH (21:15)
[2018-07-21] MEDS: Hydrocortisone Sod Succ/PF 100 mg/2 ml Vial IVP SCH ×3 (01:38→18:11)
[2018-07-21] MEDS ORDERED: Lorazepam 2 MG/ML VIAL ONE (03:08)
[2018-07-21] MEDS ORDERED: Lorazepam 2 MG/ML VIAL SLOW IVP SCH ×2 (03:15→05:45)
[2018-07-21 04:14] LABS: Actual Bicarbonate (HCO3a) 33.2 mEq/L (22-28); Base Excess (BEa) 5.9 mEq/L (-2.0 to +3.0); Calcium, Ionized 1.19 mmol/L (1.12-1.30); Hemoglobin (Hb) 10.5 g/dL (14.0-18.0); O2 Tension (PaO2) 80.5 mmHg (80.0-100.0); pH, Arterial 7.33 (7.35-7.45)
[2018-07-21 04:18] LABS: CO2 Tension 63.9 mmHg (35.0-45.0); Puncture Site RRAD
[2018-07-21] MEDS: Piperacillin/Tazobactam 3.375 GM in Sodium Chloride 0.9% 100 ML IVPB SCH ×3 (05:52→18:11)
[2018-07-21] MEDS: Oxazepam 10 MG CAP PO SCH ×2 (05:54→15:18)
[2018-07-21 06:20] LABS: #Lymphocytes 1.5 thou/uL (1.20-3.40); #Monocytes 1.1 thou/uL (0.11-0.59); #Neutrophils 16.6 thou/uL (1.40-6.50); %Eosinophils 0.1 % (0.0-10.0); %Lymphocytes 7.9 % (21.0-51.0); %Monocytes 5.6 % (0.0-10.0); %Neutrophils 86.4 % (42.0-75.0); Hemoglobin 9.5 g/dL (14.0-18.0); Mean Corpuscular HGB CONC 31.3 g/dL (32.0-36.0); Mean Corpuscular Volume 89.4 fL (78.0-98.0); Mean Platelet Volume 6.3 fL (7.4-10.4); Platelet Count 530 thou/uL (130-400); RBC Distribution Width 15.3 % (11.5-14.5); Red Blood Cell (RBC) Count 3.38 mill/uL (4.70-6.10); White Blood Cell (WBC) Count 19.2 thou/uL (4.8-10.8)
[2018-07-21 07:03] LABS: ALT (SGPT) 27 U/L (8-55); AST (SGOT) 51 U/L (5-34); Albumin 2.7 g/dL (3.5-5.0); Alkaline Phosphatase 277 U/L (40-150); Anion Gap 13 mmol/L (10-20); BUN (Urea Nitrogen) 15 mg/dL (8.4-25.7); Bilirubin, Total 0.8 mg/dL (0.2-1.2); Calc. Creatinine Clearance 139 mL/min (70-130); Calcium 8.3 mg/dL (7.8-10.44); Carbon Dioxide 30 mmol/L (22-29); Chloride 102 mmol/L (98-107); Estimated GFR-MDRD Greater than 90; Globulin 2.7 g/dL (2.4-3.5); Glucose 112 mg/dL (70-105); Magnesium 2.1 mg/dL (1.6-2.6); Protein, Total 5.4 g/dL (6.0-8.3); Sodium 141 mmol/L (136-145)
[2018-07-21 07:15] LABS: Phosphorus 3.9 mg/dL (2.3-4.7)
[2018-07-21] MEDS ORDERED: Propofol 1,000 MG/100 ML VIAL IV ONE (07:43)
[2018-07-21] MEDS ORDERED: Midazolam HCl 2 mg/2 ml Vial ONE (08:07)
--- NOTE | 2018-07-21 08:43 | RAD ---
FRadiograph chest one view: 07/21/2018 at 5:13 AM HISTORY: 52-year-old male follow-up abnormal chest radiograph. COMPARISON: 07/20/2018 at 6:31 AM FINDINGS: Dobbhoff feeding tube, NG tube, and endotracheal tube, have been removed. Bilateral chest tubes and l eft subclavian central line, remain. There is a greater degree of blunting of the right lateral costo phrenic angle suggesting increase in size of small right pleural effusion. Mild haziness at left midl selene zone has improved. No pneumothorax visible. IMPRESSION: Status post extubation.
--- NOTE | 2018-07-21 09:56 | PRG ---
DATE OF SERVICE: 07/21/2018 SUBJECTIVE: Mr. Mcfadden has been on slow decline all night. He had flail chest mechanics. OBJECTIVE: GENERAL: On exam this morning, he was tachycardic. He was on BiPAP. VITAL SIGNS: Blood pressure was 150/86, respiratory rate was in the teens. LUNGS: Remarkable for coarse equal breath sounds. HEART: Regular rhythm. S1 and S2 normal. ABDOMEN: Soft without guarding. EXTREMITIES: Without asymmetry. LABORATORY STUDIES: White count 19.2, hemoglobin 9.5, platelets 530,000. Sodium 141, potassium 4, chloride 102, bicarb 30, BUN 15, and creatinine 0.63. AST is 51, alkaline phosphatase is 377, albumin is 2.7. IMAGING STUDIES: Chest x-ray this morning, reviewed by me shows bilateral chest tubes. Left subclavian line, right at the right atrium. Small residual amount of fluid in the right chest that is inconsequential. ASSESSMENT: 1. Acute respiratory failure secondary to a flail chest. Recommended re- intubation. 2. Status post multiple trauma after a tree fell on him. 3. Reactive thrombocytosis. 4. Respiratory acidosis with a pH of 7.33, CO2 of 63, pO2 of 80 secondary to this poor chest wall mechanics. 5. Elevated alkaline phosphatase, likely related to his fractures. 6. Barely elevated AST, likely related to muscle trauma. 7. Hypoalbuminemia. PLAN: We will re-intubate, mechanically ventilate him. It will probably be several weeks for his chest wall mechanics to improve. He probably would be best served with a tracheostomy. He maybe able to get by without a PEG . I think a tracheostomy will facilitate weaning from mechanical ventilation. CRITICAL CARE TIME: 30 minutes, independent of procedure performed. Job ID: [id number] [facility]
[2018-07-21 09:58] LABS: Actual Bicarbonate (HCO3a) 25.6 mEq/L (22-28); Base Excess (BEa) 3.3 mEq/L (-2.0 to +3.0); CO2 Tension 30.6 mmHg (35.0-45.0); Calcium, Ionized 1.17 mmol/L (1.12-1.30); Carboxyhemoglobin (COHb) 1.2 gm% (0.0-3.0); Hemoglobin (Hb) 9.4 g/dL (14.0-18.0); O2 Tension (PaO2) 99.8 mmHg (80.0-100.0); pH, Arterial 7.54 (7.35-7.45)
[2018-07-21 09:59] LABS: Puncture Site RRA
[2018-07-21] MEDS: Famotidine 20 MG TAB PO SCH ×2 (10:52→21:42)
[2018-07-21] MEDS: Vancomycin HCl 1 GM in Premix Bag 1 BAG IVPB SCH (10:54)
[2018-07-21] MEDS: Sodium Chloride 0.9% 1,000 ML IV SCH (10:55)
[2018-07-21] MEDS: Vancomycin HCl 1.5 GM in Sodium Chloride 0.9% 250 ML 300 ML IVPB SCH ×2 (10:59→21:42)
--- NOTE | 2018-07-21 14:30 | PRG ---
DATE OF SERVICE: 07/21/2018 SUBJECTIVE: The patient remains on the critical care unit overnight. It was noted that he had increased work of respirations and was placed on BiPAP. This morning, he had continued to have a decline and appeared that his rib fractures were impeding his respiratory ability. With discussion with auto former machine operator, it was felt that the patient should be re-intubated. This took place this morning. The patient tolerated that well and his vitals became markedly better. PHYSICAL EXAMINATION: VITAL SIGNS: Post intubation; temperature is 99.4, heart rate 107, blood pressure 121/79, respirations 12, on mechanical ventilatory support. HEENT: Unremarkable. LUNGS: Bilateral rhonchi and scant expiratory wheezes. HEART: Regular rate and rhythm. ABDOMEN: Soft with active bowel sounds. LABORATORY FINDINGS: White blood cell count 19.2, hemoglobin 9.5, hematocrit 30.2, platelets 530. Sodium 141, potassium 4.0, chloride 102, CO2 of 30, BUN 15, creatinine 0.63, glucose 112, magnesium 2.1, phosphorus 3.9. RADIOGRAPHS: AP chest x-ray shows tubes and lines in position. There is a greater degree of blunting of the right lateral costophrenic angle suggesting increase in size of the small right pleural effusion. Chest tube output from the left side is 600 mL, from the right is 350 mL. ASSESSMENT: 1. Status post fall. 2. Bilateral hemopneumothorax. 3. Bilateral clavicle fracture. 4. Right ribs 1 through 5 and 7 through 9 fractures. 5. Left 1 through 5 and 7 and 8 rib fractures. 6. T10 vertebral body fracture. 7. L1-L2 compression fracture. 8. Acute hypoxic respiratory failure secondary to above. 9. Adrenal insufficiency, improved. 10. Bacteremia, under treatment. PLAN: Plan will be to continue supportive care. The patient again was reintubated this morning and had bronchoscopy performed. We will keep the patient in light sedation and we will discuss tomorrow with the family possible trach and/or PEG placement. Job ID: [id number]
[2018-07-21] MEDS ORDERED: DISCONTINUE PREVIOUS NARCOTIC PAIN MEDICATIONS AND BENZODIAZEPINES FS SCH (15:25)
[2018-07-21] MEDS ORDERED: Lorazepam 2 MG/ML VIAL SLOW IVP PRN (15:25)
[2018-07-21] MEDS ORDERED: Fentanyl BOLUS 250 ML IVPB PRN (15:25)
[2018-07-21] MEDS ORDERED: Propofol BOLUS 1,000 MG/100 ML VIAL IV PRN (15:25)
[2018-07-21] MEDS ORDERED: Morphine 2 MG/ML SYRINGE SLOW IVP PRN (15:25)
[2018-07-21] MEDS: fentaNYL Citrate/PF 2,000 MCG in Sodium Chloride 0.9% 60 ML IV SCH (16:10)
[2018-07-21] MEDS: Propofol 1,000 MG/100 ML VIAL IV PRN (22:20)
[2018-07-22] MEDS: Piperacillin/Tazobactam 3.375 GM in Sodium Chloride 0.9% 100 ML IVPB SCH ×2 (01:04→06:27)
[2018-07-22] MEDS: Hydrocortisone Sod Succ/PF 100 mg/2 ml Vial IVP SCH ×3 (01:05→18:10)
[2018-07-22] MEDS ORDERED: Sodium Chloride 0.9% 500 ML IV SCH (01:15)
[2018-07-22] MEDS: Sodium Chloride 0.9% 1,000 ML IV SCH ×3 (01:45→20:05)
[2018-07-22] MEDS: Propofol 1,000 MG/100 ML VIAL IV PRN ×3 (03:59→20:05)
[2018-07-22 05:09] LABS: #Monocytes 0.7 thou/uL (0.11-0.59); #Neutrophils 12.7 thou/uL (1.40-6.50); %Basophils 0.1 % (0.0-1.0); %Eosinophils 0.3 % (0.0-10.0); %Neutrophils 87.6 % (42.0-75.0); Hemoglobin 8.5 g/dL (14.0-18.0); Mean Corpuscular HGB CONC 32.6 g/dL (32.0-36.0); Mean Corpuscular Hemoglobin 29.1 pg (27.0-31.0); Mean Corpuscular Volume 89.1 fL (78.0-98.0); Mean Platelet Volume 6.5 fL (7.4-10.4); Platelet Count 466 thou/uL (130-400); RBC Distribution Width 15.4 % (11.5-14.5); Red Blood Cell (RBC) Count 2.91 mill/uL (4.70-6.10); White Blood Cell (WBC) Count 14.4 thou/uL (4.8-10.8)
[2018-07-22 05:32] LABS: Phosphorus 3.2 mg/dL (2.3-4.7)
[2018-07-22 05:35] LABS: ALT (SGPT) 21 U/L (8-55); AST (SGOT) 34 U/L (5-34); Albumin 2.3 g/dL (3.5-5.0); Alkaline Phosphatase 228 U/L (40-150); Anion Gap 11 mmol/L (10-20); BUN (Urea Nitrogen) 15 mg/dL (8.4-25.7); Bilirubin, Total 0.7 mg/dL (0.2-1.2); Calc. Creatinine Clearance 156 mL/min (70-130); Calcium 7.9 mg/dL (7.8-10.44); Carbon Dioxide 31 mmol/L (22-29); Chloride 102 mmol/L (98-107); Estimated GFR-MDRD Greater than 90; Globulin 2.1 g/dL (2.4-3.5); Glucose 99 mg/dL (70-105); Magnesium 2.1 mg/dL (1.6-2.6); Potassium 3.5 mmol/L (3.5-5.1); Protein, Total 4.4 g/dL (6.0-8.3); Sodium 140 mmol/L (136-145)
--- NOTE | 2018-07-22 07:44 | RAD ---
FXR Chest 1 View Portable History: [Mechanical ventilation] Comparison: Radiograph prior to Findings: Patient is now intubated with endotracheal tube tip just below the level of the clavicles i n good position. Left subclavian central venous catheter is similar. Right-sided thoracostomy tube is similar. Layering right pleural effusion is similar. There is a moderate left pleural effusion. Left thoracostomy is similar. Trace left apical pneumothorax. Impression: New endotracheal tube with tip in good position. Remainder of the findings are similar.
[2018-07-22 08:30] LABS: Vancomycin, Trough 16.7 ug/mL
[2018-07-22] MEDS ORDERED: Lidocaine 1% w/Epinephrine 1:200K 30 ML VIAL NERVE BLCK SCH (10:15)
[2018-07-22] MEDS ORDERED: Fentanyl 100 MCG/2 ML VIAL SLOW IVP SCH (10:15)
[2018-07-22] MEDS ORDERED: Vecuronium 10 MG VIAL IV SCH (10:15)
[2018-07-22] MEDS ORDERED: Midazolam HCl 2 mg/2 ml Vial IVP SCH (10:15)
[2018-07-22] MEDS: Famotidine/PF 20 mg/2ml Vial SLOW IVP SCH ×2 (10:19→20:06)
[2018-07-22] MEDS: Enoxaparin Sodium 40 MG/0.4 ML SYRINGE SC SCH ×2 (10:20→19:55)
[2018-07-22] MEDS: Vancomycin HCl 1.5 GM in Sodium Chloride 0.9% 250 ML 300 ML IVPB SCH ×2 (10:21→20:07)
[2018-07-22] MEDS ORDERED: Lidocaine 1% (PF) 30 ML VIAL SC SCH (10:30)
[2018-07-22] MEDS ORDERED: Vecuronium 10 MG VIAL IVP SCH (10:30)
[2018-07-22] MEDS ORDERED: Lidocaine 1% w/Epinephrine 1:100K 20 ML VIAL ONE (10:44)
[2018-07-22] MEDS: fentaNYL Citrate/PF 2,000 MCG in Sodium Chloride 0.9% 60 ML IV SCH (11:25)
--- NOTE | 2018-07-22 11:29 | OP ---
DATE OF PROCEDURE: 07/21/2018 PROCEDURE PERFORMED: Fiberoptic bronchoscopy. INDICATIONS: Mr. Mcfadden is somnolent. He is on BiPAP. DESCRIPTION OF PROCEDURE: His throat was sprayed with Cetacaine spray. Bronchoscope was brought to the bedside. Copious amounts of secretions were encountered and his upper airway was suctioned clear. The bronchoscope was passed through his glottis into his trachea. He had minimal coughing with that. Copious clear secretions were encountered in his trachea and his right mainstem bronchus. These were all suctioned clear. His right lower lobe, right middle lobe, right upper lobe, left lower lobe, and left upper lobe segments were entered and no endobronchial lesions were seen. All secretions were suctioned clear. At the completion of the procedure, he tolerated intubation well as connected to mechanical ventilation and sedation protocol will be restarted. Job ID: [id number]
[2018-07-22] MEDS ORDERED: Meropenem 1 GM in Sodium Chloride 0.9% 100 ML IVPB SCH (14:00)
[2018-07-22] MEDS: MEROPENEM 1 GM/50 ML 1 GM in Premix Bag 1 BAG IVPB SCH ×2 (15:14→22:45)
--- NOTE | 2018-07-22 23:57 | OP ---
DATE OF PROCEDURE: 07/22/2018 PREOPERATIVE DIAGNOSES: 1. Status post blunt chest trauma. 2. Acute respiratory failure secondary to #1. POSTOPERATIVE DIAGNOSES: 1. Status post blunt chest trauma. 2. Acute respiratory failure secondary to #1. PROCEDURES PERFORMED: 1. Percutaneous tracheostomy tube placement. 2. Percutaneous endoscopic gastrostomy tube placement. ANESTHESIA: Deep sedation and local. INDICATIONS FOR PROCEDURE: A 52-year-old man, who was suffered blunt chest trauma from falling tree limb. The patient sustained multiple rib fractures. Hospitalization has been complicated by acute respiratory failure, which has failed 2 previous extubations. The patient was made to perform a percutaneous tracheostomy tube placement to facilitate ventilator wean. Percutaneous endoscopic gastrostomy tube was also warranted in anticipation of a prolonged enteral nutritional support. The patient was admitted with chronic malnutrition. DESCRIPTION OF PROCEDURE: Informed consent was obtained from the patient and his sister. The patient was placed in a supine position. He was on full mechanical ventilator support, FiO2 set at 100%. The patient received aliquots of midazolam, fentanyl followed by vecuronium 10 mg intravenously. The anterior neck was sterilely prepped and draped in usual fashion. At this juncture of the skin, two fingerbreadths above the suprasternal notch was anesthetized with 1% lidocaine with epinephrine. A 1 cm vertical incision was made here using a 15 scalpel. An introducer needle was inserted through the incision and advanced through the anterior tracheal wall. Proper placement of the needle was confirmed by direct bronchoscopy. Guidewire was passed through the needle and advanced into the distal tracheal lumen. Needle was withdrawn over the guidewire. Anterior tracheal wall was serially dilated over the guidewire. Finally, a size 8 percutaneous tracheostomy tube with a dilator and introducer catheter passed as a unit over the guidewire and placed in the distal tracheal lumen. The dilator and the guidewire were removed as a unit, leaving the tracheostomy tube in place. Inner cannula was then inserted. The cuff was inflated and the patient was connected to mechanical ventilator support via the newly placed tracheostomy tube. Good tidal volume was returned. Tracheostomy tube was secured to anterior neck using 0 silk suture at two points. Trach dressings and tie were applied. The bronchoscope was withdrawn with the previous endotracheal tube as a unit, visualizing the tracheostomy site from above with good hemostasis. Once the endotracheal tube was removed, the bronchoscope was reinserted through the newly placed tracheostomy tube and advanced to visualize the darren. The scope was advanced first to the right upper and then bronchus intermedius, and finally right lower lobe where multiple mucus plugs were encountered. This was irrigated and I evacuated to microbiology. The scope was then directed to the left upper and left lower lobes, where minor secretions were evacuated without incident. The scope was withdrawn, visualizing intact tracheobronchial mucosa. No active bleeding was noted from below. The patient tolerated the procedure without any apparent complications and remains hemodynamically stable following completion of the procedure. I then turned my attention to the abdomen, where we proceed with percutaneous endoscopic gastrostomy tube placement. A mouth guard was put in place. Fiberoptic endoscope was introduced orally and advanced visualizing the esophagus. The scope was advanced gently, intubating the stomach with gentle insufflation. Once the scope was advanced into the gastric lumen, it was appropriately insufflated and the scope was passed through the proximal duodenum, finding no evidence of ulcerative disease. The scope was withdrawn again into the gastric lumen and transilluminated in the left upper quadrant of the abdomen in the area chosen for the percutaneous endoscopic gastrostomy tube placement. The skin was anesthetized with 1% lidocaine. A stab incision was made using an 11 scalpel. Introducer needle was inserted through the incision and advanced into the gastric lumen visualized by endoscopy. The guidewire was advanced through this and placed into the gastric lumen and this was captured with an Endo-Snare, which was passed through the endoscope. The guidewire was pulled out by mouth with the endoscope and snare as a unit. This was connected to a 20-English gastrostomy tube. The distal end of the guidewire was then pulled out through the stab incision and the abdomen leaving the mushroom end of the gastrostomy tube abutting the gastric lumen. The tube was secured at the level of the skin at 3 cm. The tube was then fashioned to length. The endoscope was reintroduced into the gastric lumen, visualizing the mushroom end of the gastrostomy tube. No active bleeding noted. Finding no other pathology. Endoscopy was terminated. The gastric lumen was desufflated. The scope was withdrawn visualizing intact esophageal mucosa. The patient tolerated the operation without any apparent complication and remains hemodynamically stable following completion of the procedures. Job ID: [id number]
[2018-07-23] MEDS: Hydrocortisone Sod Succ/PF 100 mg/2 ml Vial IVP SCH ×3 (00:02→15:18)
[2018-07-23] MEDS: fentaNYL Citrate/PF 2,000 MCG in Sodium Chloride 0.9% 60 ML IV SCH (00:21)
[2018-07-23] MEDS: Sodium Chloride 0.9% 1,000 ML IV SCH ×4 (00:25→21:29)
[2018-07-23] MEDS: Propofol 1,000 MG/100 ML VIAL IV PRN (02:45)
[2018-07-23 05:20] LABS: #Lymphocytes 0.9 thou/uL (1.20-3.40); #Monocytes 0.8 thou/uL (0.11-0.59); #Neutrophils 13.8 thou/uL (1.40-6.50); %Basophils 0.1 % (0.0-1.0); %Eosinophils 0.1 % (0.0-10.0); %Lymphocytes 5.5 % (21.0-51.0); %Monocytes 5.4 % (0.0-10.0); Hemoglobin 7.9 g/dL (14.0-18.0); Mean Corpuscular HGB CONC 32.1 g/dL (32.0-36.0); Mean Corpuscular Hemoglobin 29.1 pg (27.0-31.0); Mean Corpuscular Volume 90.7 fL (78.0-98.0); Mean Platelet Volume 6.5 fL (7.4-10.4); Platelet Count 549 thou/uL (130-400); RBC Distribution Width 15.6 % (11.5-14.5); White Blood Cell (WBC) Count 15.6 thou/uL (4.8-10.8)
[2018-07-23 05:33] LABS: ALT (SGPT) 17 U/L (8-55); AST (SGOT) 29 U/L (5-34); Albumin 2.3 g/dL (3.5-5.0); Alkaline Phosphatase 202 U/L (40-150); Anion Gap 11 mmol/L (10-20); BUN (Urea Nitrogen) 15 mg/dL (8.4-25.7); Bilirubin, Total 0.5 mg/dL (0.2-1.2); Calc. Creatinine Clearance 154 mL/min (70-130); Calcium 7.8 mg/dL (7.8-10.44); Carbon Dioxide 29 mmol/L (22-29); Chloride 105 mmol/L (98-107); Estimated GFR-MDRD Greater than 90; Glucose 102 mg/dL (70-105); Potassium 3.1 mmol/L (3.5-5.1); Protein, Total 4.3 g/dL (6.0-8.3); Sodium 142 mmol/L (136-145)
[2018-07-23] MEDS: MEROPENEM 1 GM/50 ML 1 GM in Premix Bag 1 BAG IVPB SCH ×3 (05:50→21:32)
--- NOTE | 2018-07-23 07:41 | RAD ---
XR Chest 1 View Portable History: [Ventilated patient] Comparison: Radiograph earlier today Findings: The tracheostomy with tip in good position. Dense left basilar opacity. Moderate effusions. Left-sided rib fractures. Central venous catheter is similar. No significant pneumothorax. There Thoracostomy tubes are similar. Impression: Mild worsening left basilar opacity may reflect underlying infection/aspiration or compre ssive atelectasis.
[2018-07-23] MEDS ORDERED: Hydrocortisone Sod Succ/PF 100 mg/2 ml Vial IVP SCH (08:12)
[2018-07-23] MEDS ORDERED: Potassium Phosphate 30 MMOL in Sodium Chloride 0.9% 250 ML 250 ML IVPB SCH (08:30)
[2018-07-23] MEDS: Famotidine/PF 20 mg/2ml Vial SLOW IVP SCH ×2 (09:31→21:21)
[2018-07-23] MEDS: Enoxaparin Sodium 40 MG/0.4 ML SYRINGE SC SCH (09:31)
[2018-07-23] MEDS: Thiamine 100 MG TAB PER TUBE SCH (09:31)
[2018-07-23] MEDS: Folic Acid 1 MG TAB PER TUBE SCH (09:31)
--- NOTE | 2018-07-23 12:34 | PRG ---
DATE OF SERVICE: 07/23/2018 SUBJECTIVE: Mr. Mcfadden, 52-year-old man, who is status post blunt chest trauma. He is postop day #1, status post percutaneous tracheostomy and percutaneous endoscopic gastrostomy tube placements. He is awake and alert on mechanical ventilator support. Delio Coma Scale is 11T. Urinary output has been adequate. OBJECTIVE: VITAL SIGNS: Today includes blood pressure is 135/83, pulse is 78, respiratory rate is 14, temperature is 98.6 degrees Fahrenheit, oxygen saturation is 100% on FiO2 of 40% on mechanical ventilator support. He tolerates ventilatory wean on CPAP. HEART: Reveals regular rate and rhythm. No murmurs or gallops auscultated. LUNGS: Clear to auscultation bilaterally. Breathing, regular and nonlabored. ABDOMEN: Soft, nontender, nondistended. NEUROLOGIC: Reveals no focal deficits present. LABORATORY FINDINGS: Today includes a CBC with 15,600 white blood cells, hemoglobin and hematocrit 7.9 and 24.5 respectively. Platelet count is 549,000. Metabolic profile; sodium is 142, potassium is 3.1, chloride is 105, bicarb is 29, BUN is 15, creatinine is 0.57, glucose is 102, magnesium is 2.0, phosphorus is 3.0. AST and ALT are both normal at 29 and 17 respectively. Microbiology includes respiratory culture from yesterday, which is positive for gram-positive cocci in pairs and chains. The patient is on antibiotic therapy. I have personally reviewed the chest x-ray obtained today, which reveals resolved bilateral pleural effusions; however, there is mild worsening of bibasilar pulmonary opacification. IMPRESSIONS: 1. Acute posttraumatic respiratory failure, improving. 2. Acute hypokalemia. 3. Acute blood loss anemia, stable. 4. Acute aspiration pneumonia. PLAN: 1. Continue with mechanical ventilator support and wean to trach collar as tolerated. 2. Continue broad-spectrum antibiotic therapy intravenously until the patient is adequately tolerating diet. 3. We will resume tube feeds at this time. 4. Chest tubes were placed to water seal. Above findings and plan discussed with the patient and his sister at bedside. They both indicated understanding information given. Total critical care time is 35 minutes. Job ID: [id number]
[2018-07-23] MEDS ORDERED: traMADol HCl 50 MG TAB PO PRN (14:39)
[2018-07-23] MEDS: Gabapentin 100 MG CAP PO SCH ×2 (15:16→21:21)
[2018-07-23] MEDS: Acetaminophen 500 MG TAB PO SCH (17:41)
[2018-07-23] MEDS: traMADol HCl 50 MG TAB PO SCH (17:42)
[2018-07-23 20:13] LABS: #Lymphocytes 1.1 thou/uL (1.20-3.40); #Monocytes 1.1 thou/uL (0.11-0.59); #Neutrophils 16.7 thou/uL (1.40-6.50); %Basophils 0.1 % (0.0-1.0); %Eosinophils 0.2 % (0.0-10.0); %Lymphocytes 5.8 % (21.0-51.0); %Monocytes 5.8 % (0.0-10.0); %Neutrophils 88.2 % (42.0-75.0); Hemoglobin 8.8 g/dL (14.0-18.0); Mean Corpuscular Hemoglobin 29.2 pg (27.0-31.0); Mean Corpuscular Volume 91.3 fL (78.0-98.0); Mean Platelet Volume 6.2 fL (7.4-10.4); Platelet Count 688 thou/uL (130-400); RBC Distribution Width 15.8 % (11.5-14.5); Red Blood Cell (RBC) Count 3.01 mill/uL (4.70-6.10); White Blood Cell (WBC) Count 18.9 thou/uL (4.8-10.8)
[2018-07-24] MEDS: Acetaminophen 500 MG TAB PO SCH ×4 (00:17→20:05)
[2018-07-24] MEDS: traMADol HCl 50 MG TAB PO SCH ×4 (00:17→20:05)
[2018-07-24] MEDS: Hydrocortisone Sod Succ/PF 100 mg/2 ml Vial IVP SCH ×3 (00:17→15:18)
[2018-07-24 04:04] LABS: ALT (SGPT) 20 U/L (8-55); AST (SGOT) 24 U/L (5-34); Albumin 2.4 g/dL (3.5-5.0); Alkaline Phosphatase 208 U/L (40-150); Anion Gap 9 mmol/L (10-20); BUN (Urea Nitrogen) 17 mg/dL (8.4-25.7); Bilirubin, Total 0.5 mg/dL (0.2-1.2); Calc. Creatinine Clearance 0 mL/min (70-130); Calcium 7.7 mg/dL (7.8-10.44); Carbon Dioxide 31 mmol/L (22-29); Chloride 107 mmol/L (98-107); Estimated GFR-MDRD Greater than 90; Globulin 2.1 g/dL (2.4-3.5); Glucose 114 mg/dL (70-105); Potassium 3.1 mmol/L (3.5-5.1); Protein, Total 4.5 g/dL (6.0-8.3); Sodium 144 mmol/L (136-145)
[2018-07-24 04:26] LABS: Hemoglobin 8.4 g/dL (14.0-18.0); Hypochromia SLIGHT = 6-15 cells (100X) (0-5/hpf); Lymphocytes 7 % (21-51); MDiff Complete? YES; Mean Corpuscular HGB CONC 31.9 g/dL (32.0-36.0); Mean Corpuscular Hemoglobin 29.2 pg (27.0-31.0); Mean Corpuscular Volume 91.5 fL (78.0-98.0); Mean Platelet Volume 6.3 fL (7.4-10.4); Monocytes 2 % (0-10); Neutrophil 91 % (42-75); Platelet Count 689 thou/uL (130-400); Platelet Morphology Comment Appears Increased; Red Blood Cell (RBC) Count 2.87 mill/uL (4.70-6.10); White Blood Cell (WBC) Count 17.7 thou/uL (4.8-10.8)
[2018-07-24] MEDS: MEROPENEM 1 GM/50 ML 1 GM in Premix Bag 1 BAG IVPB SCH ×3 (06:03→21:38)
[2018-07-24] MEDS: Sodium Chloride 0.9% 1,000 ML IV SCH (06:17)
[2018-07-24] MEDS ORDERED: Potassium Phosphate 30 MMOL in Sodium Chloride 0.9% 500 ML IVPB SCH (07:30)
[2018-07-24] MEDS ORDERED: Potassium Phosphate 30 MMOL in Sodium Chloride 0.9% 250 ML 250 ML IVPB SCH (07:45)
--- NOTE | 2018-07-24 07:52 | RAD ---
EXAM: Portable chest PROVIDED CLINICAL HISTORY: Chest tubes COMPARISON: 07/23/2018 FINDINGS: Development of apparent pleural line at the left lung apex, compatible with small left apical pneumot horax. Additional significant interval change with respect to the prior examination is not apparent. IMPRESSION: Development of small apical left-sided pneumothorax.
[2018-07-24] MEDS: Famotidine/PF 20 mg/2ml Vial SLOW IVP SCH ×2 (07:55→21:20)
[2018-07-24] MEDS: Thiamine 100 MG TAB PER TUBE SCH (07:55)
[2018-07-24] MEDS: Gabapentin 100 MG CAP PO SCH ×3 (07:55→21:20)
[2018-07-24] MEDS: Folic Acid 1 MG TAB PER TUBE SCH (07:55)
[2018-07-24] MEDS: Enoxaparin Sodium 40 MG/0.4 ML SYRINGE SC SCH (07:55)
[2018-07-24] MEDS ORDERED: Albumin 25% 25 GM/100 ML BOT IVPB ONE (09:10)
[2018-07-24] MEDS: Albumin 25% 25 GM/100 ML BOT IVPB SCH ×3 (12:55→22:19)
--- NOTE | 2018-07-24 14:35 | PRG ---
DATE OF SERVICE: 07/24/2018 SUBJECTIVE: Mr. Mcfadden is a 52-year-old gentleman, who is status post blunt chest trauma. He is postop day #2 status post percutaneous tracheostomy and percutaneous endoscopic gastrostomy tube placement. The patient remains in the critical care unit. The patient is awake, alert, and currently on trach collar. GCS is 11T. The patient does have very minimal urine output today. Chest tube output, left side 790 in the last 24 hours; right side 460 mL, and left side chest tube output 330 mL. OBJECTIVE: VITAL SIGNS: Heart rate 95, blood pressure 140/76, respirations 20, SpO2 of 99% with trach collar, temp 98.4. GENERAL: The patient is awake and alert, in no distress, looking on his iPhone. HEART: Regular rate and rhythm. LUNGS: Regular. Breathing, nonlabored, no distress, bilateral breath sounds equal. Bilateral chest tubes to water seal. ABDOMEN: Soft, nontender, nondistended. NEUROLOGIC: No focal deficits. EXTREMITIES: The patient with diffuse edema to all 4 extremities secondary to third space. LABORATORY DATA: WBC 17.7, RBC 2.87, hemoglobin 8.4, hematocrit 26.3, platelets 689. Sodium 144, potassium 3.1, chloride 107, carbon dioxide 31, anion gap 9, BUN 17, creatinine 0.61, estimated GFR 90, glucose 114, calcium 7.7, phosphorus 3.0, magnesium 2.0, total bilirubin 0.5, AST 24, ALT 20, alkaline phos 208, albumin 2.4, globulin 2.1, albumin-globulin ratio 1.1. DIAGNOSTIC DATA: Chest x-ray; development of small left-sided apical pneumothorax. IMPRESSION: 1. Acute post traumatic respiratory failure, improving. 2. Hypokalemia. 3. Acute blood loss anemia, stable. 4. Acute aspiration pneumonia. PLAN: 1. Continue with mechanical ventilator support at night as needed and wean trach collar as tolerated. Continue broad-spectrum antibiotics IV until the patient is adequately tolerating diet. We will continue to resume tube feeds and increase as tolerated. We will continue both chest tubes to water seal. 2. We will replace electrolytes. 3. We will discontinue the patient's IV maintenance fluids and give the patient 25% albumin as the patient is third-spacing, which could be contributing to his decreased urinary output. We will continue to monitor patient's chest tube output. We will move the patient to the surgical floor as he has been stable and tolerating trach collar. 4. We will increase the patient's activity and have him up in the chair during the day. We will have Physical Therapy and Occupational Therapy work with the patient again as he will be moving on the floor. The patient was examined with Dr. Garvey during morning rounds. The patient and the patient's family at bedside, and also agree with the plan. Job ID: [id number]
--- NOTE | 2018-07-24 17:14 | PRG ---
DATE OF SERVICE: 07/24/2018 SUBJECTIVE: Mr. Mcfadden, a 52-year-old man, who suffered blunt chest trauma. The patient is recovering in the intensive care unit. He is postoperative day #2, status post percutaneous tracheostomy tube and percutaneous endoscopic gastrostomy tube placements. He spent approximately 2 to 3 hours on the ventilator support overnight and has been on trach collar for rest of the time. This morning, he is awake and alert. He reports adequate pain control. He is tolerating tube feeds at goal now. He is having normal bowel and urinary function. Urinary output has been marginal nevertheless. Chest tubes which were placed on water-seal yesterday, still return in large output of straw-colored pleural effusion. The patient has diffuse soft tissue edema. He does have relative hypotension despite being on IV hydration. OBJECTIVE: VITAL SIGNS: Today include blood pressure 127/86, pulse 78, respiratory rate is 16, and oxygen saturation 100% on FiO2 of 40%, trach collar, temperature 98.4 degrees Fahrenheit. HEENT: No jugular venous distention noted. HEART: Reveals regular rate and rhythm. No murmurs or gallops auscultated. LUNGS: Reveal scattered bibasilar rhonchi. Breathing regular and nonlabored. ABDOMEN: Soft, nontender, and nondistended. NEUROLOGIC: Reveals no focal deficits present. LABORATORY FINDINGS: Today includes CBC with 17,700 white blood cells, hemoglobin and hematocrit 8.4 and 26.3 respectively. Platelet count is 689,000. Metabolic profile; sodium 144, potassium 3.1, chloride is 107, bicarb 31, BUN is 17, creatinine 0.61, glucose 114, magnesium 2.0, phosphorus is 3.0, and albumin 2.4. IMPRESSIONS: 1. Blunt chest trauma. 2. Resolving acute respiratory failure. 3. [id number] malnutrition with hypoalbuminemia. 4. Acute hypokalemia. PLAN: 1. Correct abnormal electrolytes. 2. We will discontinue IV fluids and the patient will be given albumin over the next 24 hours while we monitor blood pressure and urinary output. 3. The above findings and plan have been discussed with the patient and family at bedside. 4. We will monitor the patient in intensive care unit over the next 24 hours and if he remains off the ventilator for 24 hours without any incident, we will consider transfer to general floor tomorrow. 5. We will increase activity per Physical and Occupational therapy. Job ID: [id number]
[2018-07-25] MEDS: Acetaminophen 500 MG TAB PO SCH ×4 (00:27→18:08)
[2018-07-25] MEDS: Hydrocortisone Sod Succ/PF 100 mg/2 ml Vial IVP SCH ×4 (00:27→21:02)
[2018-07-25] MEDS: traMADol HCl 50 MG TAB PO SCH ×4 (00:27→18:07)
[2018-07-25] MEDS: Albumin 25% 25 GM/100 ML BOT IVPB SCH ×3 (00:42→11:29)
[2018-07-25 05:26] LABS: #Lymphocytes 0.8 thou/uL (1.20-3.40); #Monocytes 0.6 thou/uL (0.11-0.59); #Neutrophils 11.9 thou/uL (1.40-6.50); %Basophils 0.3 % (0.0-1.0); %Eosinophils 0.4 % (0.0-10.0); %Lymphocytes 6.2 % (21.0-51.0); %Monocytes 4.6 % (0.0-10.0); %Neutrophils 88.6 % (42.0-75.0); Hemoglobin 7.7 g/dL (14.0-18.0); Mean Corpuscular HGB CONC 31.4 g/dL (32.0-36.0); Mean Corpuscular Hemoglobin 28.8 pg (27.0-31.0); Mean Corpuscular Volume 91.5 fL (78.0-98.0); Mean Platelet Volume 6.5 fL (7.4-10.4); Platelet Count 743 thou/uL (130-400); RBC Distribution Width 16.2 % (11.5-14.5); Red Blood Cell (RBC) Count 2.68 mill/uL (4.70-6.10); White Blood Cell (WBC) Count 13.4 thou/uL (4.8-10.8)
[2018-07-25 05:44] LABS: Phosphorus 2.5 mg/dL (2.3-4.7)
[2018-07-25 05:46] LABS: ALT (SGPT) 11 U/L (8-55); AST (SGOT) 20 U/L (5-34); Albumin 2.9 g/dL (3.5-5.0); Alkaline Phosphatase 172 U/L (40-150); Anion Gap 9 mmol/L (10-20); BUN (Urea Nitrogen) 19 mg/dL (8.4-25.7); Bilirubin, Total 0.5 mg/dL (0.2-1.2); Calc. Creatinine Clearance 158 mL/min (70-130); Calcium 8.2 mg/dL (7.8-10.44); Carbon Dioxide 34 mmol/L (22-29); Chloride 107 mmol/L (98-107); Estimated GFR-MDRD Greater than 90; Globulin 1.7 g/dL (2.4-3.5); Glucose 123 mg/dL (70-105); Magnesium 3.3 mg/dL (1.6-2.6); Potassium 3.1 mmol/L (3.5-5.1); Protein, Total 4.6 g/dL (6.0-8.3); Sodium 147 mmol/L (136-145)
[2018-07-25] MEDS: MEROPENEM 1 GM/50 ML 1 GM in Premix Bag 1 BAG IVPB SCH ×3 (06:23→21:04)
--- NOTE | 2018-07-25 08:01 | RAD ---
XR Chest 1 View Portable History: [Ventilated patient. Chest tubes.] Comparison: Radiograph prior day Findings: Bilateral thoracostomy tubes are similar. Left subclavian central venous catheter is simila r. Tracheostomy tube is similar. Dense consolidation left lung base. Mild edema. Small right apical pneumothorax is appreciated. Trace apical left pneumothorax is appreciated. Impression: Small bilateral pneumothoraces are appreciated on this examination slightly larger on the right although the lung apices are seen at the second-third posterior rib interspaces bilaterally.
[2018-07-25] MEDS ORDERED: Potassium Chloride 40 MEQ in Sodium Chloride 0.9% 250 ML 250 ML IVPB SCH (08:15)
[2018-07-25] MEDS: Famotidine 20 MG TAB PER TUBE SCH ×2 (08:35→21:03)
[2018-07-25] MEDS: Enoxaparin Sodium 40 MG/0.4 ML SYRINGE SC SCH (08:35)
[2018-07-25] MEDS: Folic Acid 1 MG TAB PER TUBE SCH (08:35)
[2018-07-25] MEDS: Thiamine 100 MG TAB PER TUBE SCH (08:36)
[2018-07-25] MEDS: Gabapentin 100 MG CAP PO SCH ×3 (08:36→21:03)
[2018-07-25] MEDS ORDERED: Furosemide 40 MG/4 ML VIAL SLOW IVP SCH (10:30)
--- NOTE | 2018-07-25 11:45 | PRG ---
DATE OF SERVICE: 07/25/2018 SUBJECTIVE: Mr. Mcfadden is a 52-year-old man, who suffered blunt chest trauma. The patient was successfully transferred to the medical floor. He is postop day 3 for a tracheostomy and percutaneous endoscopic gastrostomy tube. He is tolerating tube feeds well. He is still unable to vocalize secondary to tracheostomy tube. The patient is awake and alert today. He reports that his pain is well controlled. His only complaints are hunger and thirst. His urinary catheter is in place and chest tubes are in place. No air leaks noted. Family at bedside, voices appropriate questions about plan of care. OBJECTIVE: VITAL SIGNS: Blood pressure 146/88, pulse 110, respiratory rate 24, afebrile and saturating well on trach collar/room air. HEENT: Normocephalic and atraumatic. CHEST/ABDOMEN: Even inspiratory and expiratory effort. No bony chest abnormalities. Braces in place. Abdomen, nondistended and nontender. NEUROLOGIC: No focal deficits noted. LABORATORY FINDINGS: Hemoglobin 7.7, white blood cell count 13.4. Sodium 147, potassium 3.1. BNP 1350. IMAGING: Chest x-ray for today reveals small bilateral pneumothoraces, slightly larger on the right. Lung apices are seen. Chest tubes in place. ASSESSMENT: 1. Blunt chest trauma. 2. Resolving acute respiratory failure. 3. Acute on chronic malnutrition with hypoalbuminemia. 4. Acute hypokalemia. 5. Possible volume overloaded, elevated BNP. PLAN: Multiple electrolyte abnormalities will be corrected with IV and p.o. medications. Suspect possible fluid overload with elevated BNP at 350. We will give one time dose of IV Lasix. Continue to monitor chest tube output for possible removal in the coming days. Encourage ambulation with therapy. Continue tube feedings as indicated. This patient was seen and evaluated on morning rounds day with Dr. Adan Coats. Job ID: [id number] [facility]
[2018-07-26] MEDS: Acetaminophen 500 MG TAB PO SCH ×5 (00:37→23:04)
[2018-07-26] MEDS: traMADol HCl 50 MG TAB PO SCH ×5 (00:37→23:05)
[2018-07-26 05:54] LABS: #Eosinphils 0.2 thou/uL (0.0-0.7); #Monocytes 0.7 thou/uL (0.11-0.59); #Neutrophils 11.6 thou/uL (1.40-6.50); %Basophils 0.1 % (0.0-1.0); %Eosinophils 1.3 % (0.0-10.0); %Lymphocytes 7.4 % (21.0-51.0); %Monocytes 5.3 % (0.0-10.0); %Neutrophils 85.9 % (42.0-75.0); Hemoglobin 8.4 g/dL (14.0-18.0); Mean Corpuscular Hemoglobin 29.1 pg (27.0-31.0); Mean Corpuscular Volume 90.9 fL (78.0-98.0); Mean Platelet Volume 6.5 fL (7.4-10.4); Platelet Count 878 thou/uL (130-400); RBC Distribution Width 16.1 % (11.5-14.5); Red Blood Cell (RBC) Count 2.89 mill/uL (4.70-6.10); White Blood Cell (WBC) Count 13.5 thou/uL (4.8-10.8)
[2018-07-26 06:25] LABS: Phosphorus 2.8 mg/dL (2.3-4.7)
[2018-07-26 06:29] LABS: ALT (SGPT) 12 U/L (8-55); AST (SGOT) 25 U/L (5-34); Albumin 2.9 g/dL (3.5-5.0); Alkaline Phosphatase 191 U/L (40-150); Anion Gap 10 mmol/L (10-20); BUN (Urea Nitrogen) 23 mg/dL (8.4-25.7); Bilirubin, Total 0.5 mg/dL (0.2-1.2); Calc. Creatinine Clearance 167 mL/min (70-130); Calcium 8.2 mg/dL (7.8-10.44); Carbon Dioxide 32 mmol/L (22-29); Chloride 106 mmol/L (98-107); Estimated GFR-MDRD Greater than 90; Globulin 1.8 g/dL (2.4-3.5); Glucose 122 mg/dL (70-105); Magnesium 2.1 mg/dL (1.6-2.6); Potassium 3.5 mmol/L (3.5-5.1); Protein, Total 4.7 g/dL (6.0-8.3); Sodium 144 mmol/L (136-145)
--- NOTE | 2018-07-26 07:54 | RAD ---
PORTABLE CHEST: DATE: 07/26/2018. PROVIDED CLINICAL HISTORY: Chest tubes. FINDINGS: Comparison 07/25/2018. Small bilateral pneumothoraces are redemonstrated. Bilateral chest tubes, lef t-sided central line, and tracheostomy appliance are again seen in similar positions. Bibasilar pleu ral parenchymal opacities are again noted with some improved aeration at the left lung base. Cardiac and mediastinal silhouette has not definitely changed in appearance. IMPRESSION: Small bilateral pneumothoraces and bibasilar pleural parenchymal opacity with some improved aeration at the left lung base. POS: OFF
[2018-07-26] MEDS ORDERED: Potassium Phosphate 15 MMOL in Sodium Chloride 0.9% 250 ML 250 ML IVPB SCH (08:30)
[2018-07-26] MEDS: Thiamine 100 MG TAB PER TUBE SCH (09:21)
[2018-07-26] MEDS: Famotidine 20 MG TAB PER TUBE SCH ×2 (09:21→21:52)
[2018-07-26] MEDS: Folic Acid 1 MG TAB PER TUBE SCH (09:21)
[2018-07-26] MEDS: Gabapentin 100 MG CAP PO SCH ×3 (09:21→21:52)
[2018-07-26] MEDS: Hydrocortisone Sod Succ/PF 100 mg/2 ml Vial IVP SCH ×2 (09:22→21:51)
[2018-07-26] MEDS: Enoxaparin Sodium 40 MG/0.4 ML SYRINGE SC SCH (09:38)
[2018-07-26] MEDS: Cephalexin 250 MG/5 ML Oral Suspension PER TUBE SCH ×3 (10:00→21:51)
[2018-07-26] MEDS ORDERED: Morphine 2 MG/ML SYRINGE SLOW IVP SCH (10:15)
[2018-07-26] MEDS: Furosemide 20 MG/2 ML VIAL SLOW IVP SCH ×3 (13:23→21:51)
--- NOTE | 2018-07-26 14:33 | PRG ---
DATE OF SERVICE: 07/26/2018 SUBJECTIVE: The patient was seen this morning sitting up in bed with TLSO brace in place. He had just completed working with respiratory therapy and had a little bit of a retained cough and mucus sounding in his upper chest. The patient reported that his pain medication wears off and he is subsequently having too much pain to be able to cough adequately. We did discuss pain management and he did agree to increasing the pain medications to see if that helped him better. The patient is n.p.o. for now and has a PEG tube. He has been tolerating his tube feeds. He has a Gonzalez catheter with clear yellow output. Has bilateral chest tubes with significant output as well. He had no acute events overnight and had no other complaints at that time. OBJECTIVE: VITAL SIGNS: Temperature 98.3, pulse 100, respirations 20, oxygen saturation 96% on room air, blood pressure 129/78. GENERAL: Frail, middle-aged male, sitting up in bed with no signs of acute distress. PULMONARY: Equal chest rise and fall. Upper respiratory rattle. Coarse rattle heard in the bilateral upper lung martinez. Clear breath sounds; however, over the middle and lower lung martinez. No signs of acute distress. Bilateral chest tubes to water seal with serosanguineous output to right chest tube and serous output to left chest tube. CARDIAC: Regular rate and rhythm. No murmurs, gallops, or rubs. GASTROINTESTINAL: Abdomen is soft, nontender, nondistended with PEG tube in place. EXTREMITIES: 2+ pulses in all extremities. Swelling to the bilateral upper and lower extremities, which is appearing much better than previously. 2+ pulses in all extremities. Gross motor and sensation intact. LABORATORY FINDINGS: White count 13.5, hemoglobin 8.4, hematocrit 26.3, platelets 878. Sodium 144, potassium 3.5, chloride 106, carbon dioxide 32, BUN 23, creatinine 0.53, glucose 122, phos 2.8, magnesium 2.1. Pre-albumin 16.0. DIAGNOSTIC FINDINGS: Chest x-ray completed this morning demonstrates small bilateral pneumothoraces and basal pleural-parenchymal opacities with some improved aeration at the left lung base. ASSESSMENT: 1. Status post blunt chest trauma. 2. Bilateral hemopneumothoraces. 3. Bilateral clavicle fractures. 4. Right 1 through 5 and 7 through 9 rib fractures. 5. Left 1 through 10 and 7 through 8 rib fractures. 6. T12 vertebral body fracture. 7. L1 through 2 compression fractures. 8. Acute respiratory failure, resolved. 9. Pneumonia/bilateral pulmonary effusions, improved. 10. Tachycardiac, resolved. 11. Compensation and protein-calorie malnutrition. 12. History of alcohol abuse. PLAN: The patient will continue to be on the floor with aggressive trach care and suctioning q.6 hours by nursing floor. We will keep bilateral chest tubes for now. They will continue to put out large volumes until the patient is further diuresed. We will give Lasix 20 mg q.8 hours x24 hours for further diuresis. We will increase tramadol to 100 mg q.6 hours scheduled for better pain control and cough. Trach was changed to a 6.[address] Garvey. Continue antibiotics with Keflex for a total of 7 days. Replace potassium and phosphorus today. Stop steroids on Sunday. We will consider adding EzPAP to the patient's RT regimen, if he is still having trouble clearing his secretions this afternoon. The patient was seen and examined by Dr. Garvey and myself this morning during rounds. Job ID: [id number]
[2018-07-27] MEDS: Acetaminophen 500 MG TAB PO SCH ×4 (06:10→23:43)
[2018-07-27] MEDS: Furosemide 20 MG/2 ML VIAL SLOW IVP SCH ×3 (06:11→20:15)
[2018-07-27] MEDS: traMADol HCl 50 MG TAB PO SCH ×4 (06:18→23:43)
[2018-07-27 07:01] LABS: #Basophils 0.1 thou/uL (0.0-0.2); #Eosinphils 0.1 thou/uL (0.0-0.7); #Lymphocytes 1.4 thou/uL (1.20-3.40); #Monocytes 0.8 thou/uL (0.11-0.59); #Neutrophils 10.6 thou/uL (1.40-6.50); %Basophils 0.5 % (0.0-1.0); %Eosinophils 0.8 % (0.0-10.0); %Lymphocytes 10.5 % (21.0-51.0); %Monocytes 6.4 % (0.0-10.0); %Neutrophils 81.8 % (42.0-75.0); Hemoglobin 9.2 g/dL (14.0-18.0); Mean Corpuscular HGB CONC 30.6 g/dL (32.0-36.0); Mean Corpuscular Hemoglobin 28.6 pg (27.0-31.0); Mean Corpuscular Volume 93.4 fL (78.0-98.0); Mean Platelet Volume 6.5 fL (7.4-10.4); Platelet Count 980 thou/uL (130-400); RBC Distribution Width 16.6 % (11.5-14.5); Red Blood Cell (RBC) Count 3.22 mill/uL (4.70-6.10)
[2018-07-27 07:12] LABS: ALT (SGPT) 15 U/L (8-55); AST (SGOT) 26 U/L (5-34); Alkaline Phosphatase 245 U/L (40-150); Anion Gap 10 mmol/L (10-20); BUN (Urea Nitrogen) 23 mg/dL (8.4-25.7); Bilirubin, Total 0.4 mg/dL (0.2-1.2); Calc. Creatinine Clearance 167 mL/min (70-130); Calcium 8.5 mg/dL (7.8-10.44); Carbon Dioxide 33 mmol/L (22-29); Chloride 102 mmol/L (98-107); Estimated GFR-MDRD Greater than 90; Globulin 2.1 g/dL (2.4-3.5); Glucose 113 mg/dL (70-105); Magnesium 2.1 mg/dL (1.6-2.6); Potassium 3.8 mmol/L (3.5-5.1); Protein, Total 5.1 g/dL (6.0-8.3); Sodium 141 mmol/L (136-145)
[2018-07-27 07:34] LABS: Phosphorus 3.6 mg/dL (2.3-4.7)
--- NOTE | 2018-07-27 08:19 | RAD ---
CHEST 1 VIEW: Date: 07/27/18 INDICATION: History of bilateral chest tubes. COMPARISON: Prior exam dated 07/26/18. FINDINGS: There are small bilateral apical pneumothoraces again seen. Bilateral thoracostomy tubes are unchange d. Tracheostomy tube and left subclavian central venous catheter are similar appearing. Cardiomegaly persists. Bibasilar air space opacities are similar. IMPRESSION: Stable exam. POS: BH
[2018-07-27] MEDS: Gabapentin 100 MG CAP PO SCH ×3 (10:02→21:23)
[2018-07-27] MEDS: Cephalexin 250 MG/5 ML Oral Suspension PER TUBE SCH ×3 (10:02→21:22)
[2018-07-27] MEDS: Famotidine 20 MG TAB PER TUBE SCH ×2 (10:03→21:23)
[2018-07-27] MEDS: Folic Acid 1 MG TAB PER TUBE SCH (10:03)
[2018-07-27] MEDS: Thiamine 100 MG TAB PER TUBE SCH (10:03)
[2018-07-27] MEDS: Hydrocortisone Sod Succ/PF 100 mg/2 ml Vial IVP SCH (10:03)
[2018-07-27] MEDS: Enoxaparin Sodium 40 MG/0.4 ML SYRINGE SC SCH (10:04)
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
--- NOTE | 2018-07-27 13:42 | EKG ---
Test Reason : Blood Pressure : / mmHG Vent. Rate : 102 BPM Atrial Rate : 102 BPM P-R Int : 148 ms QRS Dur : 074 ms QT Int : 330 ms P-R-T Axes : 047 017 046 degrees QTc Int : 430 ms Sinus tachycardia Possible Left atrial enlargement Borderline ECG Confirmed by IONA MUSE DO ([id number]), assistant production editor SUSANA ASENCIO ([id number]) on 07/27/2018 1:42:22 PM Referred By: Confirmed By:IONA MUSE DO
[2018-07-27] MEDS: Aspirin 325 mg Enteric Coated Tablet PO SCH (17:20)
[2018-07-28] MEDS: Furosemide 20 MG/2 ML VIAL SLOW IVP SCH (04:14)
[2018-07-28] MEDS: traMADol HCl 50 MG TAB PO SCH ×4 (05:42→23:06)
[2018-07-28] MEDS: Acetaminophen 500 MG TAB PO SCH ×4 (05:42→23:06)
[2018-07-28 06:12] LABS: #Basophils 0.1 thou/uL (0.0-0.2); #Eosinphils 0.7 thou/uL (0.0-0.7); #Lymphocytes 2.5 thou/uL (1.20-3.40); #Monocytes 1.3 thou/uL (0.11-0.59); #Neutrophils 8.6 thou/uL (1.40-6.50); %Basophils 0.6 % (0.0-1.0); %Eosinophils 5.5 % (0.0-10.0); %Monocytes 9.9 % (0.0-10.0); %Neutrophils 65.1 % (42.0-75.0); Hemoglobin 8.9 g/dL (14.0-18.0); Mean Corpuscular HGB CONC 31.3 g/dL (32.0-36.0); Mean Corpuscular Hemoglobin 29.2 pg (27.0-31.0); Mean Corpuscular Volume 93.5 fL (78.0-98.0); Mean Platelet Volume 6.5 fL (7.4-10.4); Platelet Count 914 thou/uL (130-400); RBC Distribution Width 16.5 % (11.5-14.5); Red Blood Cell (RBC) Count 3.03 mill/uL (4.70-6.10); White Blood Cell (WBC) Count 13.2 thou/uL (4.8-10.8)
[2018-07-28 06:42] LABS: Phosphorus 3.4 mg/dL (2.3-4.7)
[2018-07-28 06:48] LABS: ALT (SGPT) 16 U/L (8-55); AST (SGOT) 22 U/L (5-34); Albumin 2.8 g/dL (3.5-5.0); Alkaline Phosphatase 250 U/L (40-150); Anion Gap 8 mmol/L (10-20); BUN (Urea Nitrogen) 26 mg/dL (8.4-25.7); Bilirubin, Total 0.5 mg/dL (0.2-1.2); Calc. Creatinine Clearance 164 mL/min (70-130); Calcium 8.2 mg/dL (7.8-10.44); Carbon Dioxide 34 mmol/L (22-29); Chloride 100 mmol/L (98-107); Estimated GFR-MDRD Greater than 90; Globulin 2.2 g/dL (2.4-3.5); Glucose 107 mg/dL (70-105); Potassium 3.7 mmol/L (3.5-5.1); Sodium 138 mmol/L (136-145)
[2018-07-28] MEDS ORDERED: Hydrocortisone Sod Succ/PF 100 mg/2 ml Vial IVP SCH (09:00)
[2018-07-28] MEDS: Folic Acid 1 MG TAB PER TUBE SCH (09:26)
[2018-07-28] MEDS: Gabapentin 100 MG CAP PO SCH ×3 (09:26→20:52)
[2018-07-28] MEDS: Famotidine 20 MG TAB PER TUBE SCH ×2 (09:26→20:52)
[2018-07-28] MEDS: Aspirin 325 mg Enteric Coated Tablet PO SCH (09:26)
[2018-07-28] MEDS: Thiamine 100 MG TAB PER TUBE SCH (09:26)
[2018-07-28] MEDS: Enoxaparin Sodium 40 MG/0.4 ML SYRINGE SC SCH (09:26)
[2018-07-28] MEDS: Cephalexin 250 MG/5 ML Oral Suspension PER TUBE SCH ×3 (09:27→20:51)
--- NOTE | 2018-07-28 10:29 | RAD ---
CHEST 1 VIEW: Date: 07/28/18 INDICATION: Bilateral chest tubes. COMPARISON: Prior exam dated 07/27/18 at 0617 hours. FINDINGS: The left-sided pneumothorax has now increased in size. The small right apical pneumothorax is stable. Bilateral chest tubes are stable. Tracheostomy tube and left subclavian central venous catheter are similar appearing. There is worsening bibasilar atelectasis due to hypoventilation. IMPRESSION: 1. Worsening moderate left-sided pneumothorax. 2. Stable small right apical pneumothorax. 3. Stable tubes and lines. 4. Worsening bibasilar atelectasis. Findings called to Ariadne Martinez RN, at 0639 hours. CODE CR. POS: [facility]
--- NOTE | 2018-07-28 12:24 | PRG ---
DATE OF SERVICE: 07/28/2018 SUBJECTIVE: The patient remains on the surgical floor. We were notified this morning that his chest x-ray revealed an increased size of a left pneumothorax. This is different from yesterday where he had a disconnected right pneumothorax, though, he does have some residual on the right, at which time, he was placed back on suction to his chest tubes. The patient had no issues overnight and was asymptomatic regarding his chest tubes this morning. He is doing well and continues to tolerate his PEG tube feedings. OBJECTIVE: VITAL SIGNS: Temperature 98.4, heart rate 99, blood pressure 111/76, respirations 20, oxygen saturation 98% on trach collar. GENERAL: The patient is resting comfortably in a chair beside his bed. He is awake, alert, follows commands and interact as much as possible with being currently nonverbal with his trach at the time. LUNGS: Clear to auscultation with good inspiratory and expiratory effort. HEART: Regular rate and rhythm. ABDOMEN: Soft, flat, nontender with active bowel sounds. PEG tube is in place and functioning. EXTREMITIES: Neurovascularly intact x4. LABORATORY FINDINGS: White blood cell count 13.2, hemoglobin 8.9, hematocrit 28.4, platelets 914. Sodium 138, potassium 3.7, chloride 100, CO2 34, BUN 26, creatinine 0.52, glucose 107, magnesium 2.0, phosphorus 3.4. Radiographs this morning, AP chest x-ray showed a worsening moderate left-sided pneumothorax, stable right apical pneumothorax, stable tubes and lines, and worsening bibasilar atelectasis. ASSESSMENT: 1. Status post blunt chest injury. 2. Bilateral pneumothoraces, return to suction. 3. Bilateral clavicle fractures. 4. Multiple bilateral rib fractures. 5. T12 vertebral body fracture, stable. 6. L1 through L2 compression fractures, treated with a TLSO. 7. Acute respiratory failure, resolved. 8. Bilateral pulmonary effusions, improving. 9. Deconditioning and protein-calorie malnutrition, improving. PLAN: Plan will be to continue supportive care. Again, the chest tubes returned to water-seal. Repeat chest x-ray in the morning. Encourage physical and occupational therapy. Speech eval tomorrow for swallow study and discuss placement. Evaluation and examination were discussed with Dr. Garvey this morning. Job ID: [id number]
[2018-07-29] MEDS: Acetaminophen 500 MG TAB PO SCH ×4 (06:08→23:46)
[2018-07-29] MEDS: traMADol HCl 50 MG TAB PO SCH ×4 (06:08→23:46)
[2018-07-29 06:49] LABS: Hemoglobin 9.1 g/dL (14.0-18.0); Mean Corpuscular HGB CONC 30.8 g/dL (32.0-36.0); Mean Corpuscular Volume 94.1 fL (78.0-98.0); Mean Platelet Volume 6.5 fL (7.4-10.4); Platelet Count 1002 thou/uL (130-400); RBC Distribution Width 16.5 % (11.5-14.5); Red Blood Cell (RBC) Count 3.15 mill/uL (4.70-6.10); White Blood Cell (WBC) Count 15.4 thou/uL (4.8-10.8)
[2018-07-29 06:58] LABS: ALT (SGPT) 15 U/L (8-55); AST (SGOT) 25 U/L (5-34); Albumin 3.1 g/dL (3.5-5.0); Alkaline Phosphatase 300 U/L (40-150); Anion Gap 10 mmol/L (10-20); BUN (Urea Nitrogen) 28 mg/dL (8.4-25.7); Bilirubin, Total 0.5 mg/dL (0.2-1.2); Calc. Creatinine Clearance 164 mL/min (70-130); Calcium 8.6 mg/dL (7.8-10.44); Carbon Dioxide 31 mmol/L (22-29); Chloride 100 mmol/L (98-107); Estimated GFR-MDRD Greater than 90; Globulin 2.3 g/dL (2.4-3.5); Glucose 110 mg/dL (70-105); Magnesium 2.2 mg/dL (1.6-2.6); Potassium 3.9 mmol/L (3.5-5.1); Protein, Total 5.4 g/dL (6.0-8.3); Sodium 137 mmol/L (136-145)
[2018-07-29 07:05] LABS: #Basophils 0.1 thou/uL (0.0-0.2); #Eosinphils 0.9 thou/uL (0.0-0.7); #Lymphocytes 2.4 thou/uL (1.20-3.40); #Monocytes 1.1 thou/uL (0.11-0.59); #Neutrophils 10.9 thou/uL (1.40-6.50); %Basophils 0.5 % (0.0-1.0); %Lymphocytes 15.7 % (21.0-51.0); %Monocytes 7.3 % (0.0-10.0); %Neutrophils 70.6 % (42.0-75.0)
--- NOTE | 2018-07-29 07:55 | RAD ---
AP view chest HISTORY: Bilateral pneumothorax with bilateral chest tubes AP view chest demonstrates a tracheostomy tube in place. A left subclavian central line is in place is in place. Bilateral chest tubes are in place. Again multiple bilateral rib fractures seen. Right-sided scapular fracture seen. Tiny right apical pneumothorax persists. No definite left-sided pneumothorax seen. IMPRESSION: Persistent tiny right apical pneumothorax.
[2018-07-29] MEDS: Enoxaparin Sodium 40 MG/0.4 ML SYRINGE SC SCH (09:00)
[2018-07-29] MEDS: Aspirin 325 mg Enteric Coated Tablet PO SCH (09:00)
[2018-07-29] MEDS: Famotidine 20 MG TAB PER TUBE SCH ×2 (09:00→20:50)
[2018-07-29] MEDS: Thiamine 100 MG TAB PER TUBE SCH (09:01)
[2018-07-29] MEDS: Folic Acid 1 MG TAB PER TUBE SCH (09:01)
[2018-07-29] MEDS: Gabapentin 100 MG CAP PO SCH ×3 (09:01→20:50)
[2018-07-29] MEDS: Cephalexin 250 MG/5 ML Oral Suspension PER TUBE SCH ×3 (10:10→20:50)
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
[2018-07-30 05:01] LABS: #Basophils 0.1 thou/uL (0.0-0.2); #Eosinphils 1.4 thou/uL (0.0-0.7); #Lymphocytes 2.6 thou/uL (1.20-3.40); #Monocytes 1.3 thou/uL (0.11-0.59); #Neutrophils 9.6 thou/uL (1.40-6.50); %Basophils 0.8 % (0.0-1.0); %Eosinophils 9.4 % (0.0-10.0); %Lymphocytes 17.5 % (21.0-51.0); %Monocytes 8.5 % (0.0-10.0); %Neutrophils 63.8 % (42.0-75.0); Hemoglobin 9.6 g/dL (14.0-18.0); Mean Corpuscular HGB CONC 30.7 g/dL (32.0-36.0); Mean Corpuscular Hemoglobin 28.8 pg (27.0-31.0); Mean Corpuscular Volume 93.8 fL (78.0-98.0); Mean Platelet Volume 6.8 fL (7.4-10.4); Platelet Count 947 thou/uL (130-400); RBC Distribution Width 16.5 % (11.5-14.5); Red Blood Cell (RBC) Count 3.34 mill/uL (4.70-6.10)
[2018-07-30] MEDS: Acetaminophen 500 MG TAB PO SCH ×4 (05:30→23:48)
[2018-07-30] MEDS: traMADol HCl 50 MG TAB PO SCH ×4 (05:31→23:48)
[2018-07-30] MEDS: Folic Acid 1 MG TAB PER TUBE SCH (08:27)
[2018-07-30] MEDS: Cephalexin 250 MG/5 ML Oral Suspension PER TUBE SCH ×3 (08:27→20:23)
[2018-07-30] MEDS: Aspirin 325 mg Enteric Coated Tablet PO SCH (08:27)
[2018-07-30] MEDS: Enoxaparin Sodium 40 MG/0.4 ML SYRINGE SC SCH (08:27)
[2018-07-30] MEDS: Gabapentin 100 MG CAP PO SCH ×3 (08:27→20:22)
[2018-07-30] MEDS: Famotidine 20 MG TAB PER TUBE SCH ×2 (08:27→20:23)
[2018-07-30] MEDS: Thiamine 100 MG TAB PER TUBE SCH (08:27)
--- NOTE | 2018-07-30 08:38 | RAD ---
AP VIEW CHEST: HISTORY: Patient with trauma with bilateral chest tubes. FINDINGS: AP view chest demonstrates a tracheostomy tube in place. Bilateral chest tubes seen. Bilateral rib fractures seen. Again, a right scapular fracture is seen. Previously visualized tiny right apical pneumothorax persists. No definite left-sided pneumothorax s een. There is suboptimal inspiratory effort. Pulmonary vascular congestion is seen. Bibasilar areas of atelectasis or patchy pneumonia are seen in the lung bases. The left subclavian central line has been removed. IMPRESSION: 1. Persistent tiny right apical pneumothorax. 2. Bilateral chest tubes in position. No definite evidence of left-sided pneumothorax is seen. 3. Areas of patchy density in both lung bases, compatible with bibasilar atelectasis or pneumonia. POS: [facility]
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
--- NOTE | 2018-07-30 14:39 | RAD ---
Modified Barium Swallow CLINICAL HISTORY: Dysphagia, unspecified; feeding difficulties FINDINGS: Examination is performed with real-time fluoroscopy. Varying consistencies of barium contra st were administered to the patient, and ingested orally. There is appropriate swallowing mechanism, without evidence of laryngeal penetration or tracheal aspiration. Exposure data: 1.4 minutes intermittent fluoroscopy, 2.6 mg IMPRESSION: No laryngeal penetration or tracheal aspiration. Reference speech pathology report for further details.
[2018-07-30] MEDS: Zolpidem Tartrate 5 MG TAB PO PRN (20:22)
[2018-07-31 05:05] LABS: #Basophils 0.1 thou/uL (0.0-0.2); #Eosinphils 1.1 thou/uL (0.0-0.7); #Lymphocytes 1.9 thou/uL (1.20-3.40); #Monocytes 1.6 thou/uL (0.11-0.59); #Neutrophils 8.9 thou/uL (1.40-6.50); %Basophils 0.8 % (0.0-1.0); %Lymphocytes 13.7 % (21.0-51.0); %Monocytes 11.6 % (0.0-10.0); %Neutrophils 65.9 % (42.0-75.0); Hemoglobin 8.7 g/dL (14.0-18.0); Mean Corpuscular HGB CONC 30.9 g/dL (32.0-36.0); Mean Corpuscular Hemoglobin 28.4 pg (27.0-31.0); Mean Corpuscular Volume 91.8 fL (78.0-98.0); Mean Platelet Volume 6.5 fL (7.4-10.4); Platelet Count 812 thou/uL (130-400); Red Blood Cell (RBC) Count 3.08 mill/uL (4.70-6.10); White Blood Cell (WBC) Count 13.5 thou/uL (4.8-10.8)
[2018-07-31] MEDS: traMADol HCl 50 MG TAB PO SCH ×4 (05:54→23:54)
[2018-07-31] MEDS: Acetaminophen 500 MG TAB PO SCH ×4 (05:54→23:53)
--- NOTE | 2018-07-31 07:59 | RAD ---
Chest one view HISTORY: Chest injury. Dyspnea. Follow-up. COMPARISON: 07/30/2018. FINDINGS: Cardiac silhouette remains magnified and partially obscured by bibasilar atelectasis and el evation of the right hemidiaphragm. Mediastinum is midline with tracheostomy appliance in place. Pulmonary vasculature accentuated by shallow inspiration. Bilateral rib fractures and thoracostomy tubes are unchanged. Small right apical pneumothorax and min imal left pneumothorax are also stable. IMPRESSION: Stable posttraumatic appearance of the chest.
[2018-07-31] MEDS: Aspirin 325 mg Enteric Coated Tablet PO SCH (10:03)
[2018-07-31] MEDS: Enoxaparin Sodium 40 MG/0.4 ML SYRINGE SC SCH (10:03)
[2018-07-31] MEDS: Cephalexin 250 MG/5 ML Oral Suspension PER TUBE SCH ×3 (10:03→21:36)
[2018-07-31] MEDS: Famotidine 20 MG TAB PER TUBE SCH ×2 (10:03→21:34)
[2018-07-31] MEDS: Gabapentin 100 MG CAP PO SCH ×3 (10:03→21:34)
[2018-07-31] MEDS: Folic Acid 1 MG TAB PER TUBE SCH (10:03)
[2018-07-31] MEDS: Thiamine 100 MG TAB PER TUBE SCH (10:03)
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
[2018-07-31] MEDS: Zolpidem Tartrate 5 MG TAB PO PRN (21:35)
[2018-08-01] MEDS ORDERED: Sodium Chloride 0.9% 500 ML IV SCH (01:15)
[2018-08-01 05:07] LABS: #Basophils 0.1 thou/uL (0.0-0.2); #Eosinphils 1.1 thou/uL (0.0-0.7); #Lymphocytes 2.1 thou/uL (1.20-3.40); #Monocytes 1.7 thou/uL (0.11-0.59); #Neutrophils 8.7 thou/uL (1.40-6.50); %Basophils 1.1 % (0.0-1.0); %Eosinophils 8.2 % (0.0-10.0); %Monocytes 12.2 % (0.0-10.0); %Neutrophils 63.5 % (42.0-75.0); Hemoglobin 9.4 g/dL (14.0-18.0); Mean Corpuscular HGB CONC 32.1 g/dL (32.0-36.0); Mean Corpuscular Hemoglobin 29.5 pg (27.0-31.0); Mean Corpuscular Volume 91.9 fL (78.0-98.0); Mean Platelet Volume 6.9 fL (7.4-10.4); Platelet Count 842 thou/uL (130-400); RBC Distribution Width 15.9 % (11.5-14.5); Red Blood Cell (RBC) Count 3.17 mill/uL (4.70-6.10); White Blood Cell (WBC) Count 13.7 thou/uL (4.8-10.8)
[2018-08-01 05:19] LABS: Anion Gap 12 mmol/L (10-20); BUN (Urea Nitrogen) 21 mg/dL (8.4-25.7); Calc. Creatinine Clearance 141 mL/min (70-130); Calcium 8.8 mg/dL (7.8-10.44); Carbon Dioxide 25 mmol/L (22-29); Chloride 98 mmol/L (98-107); Estimated GFR-MDRD Greater than 90; Glucose 104 mg/dL (70-105); Magnesium 2.3 mg/dL (1.6-2.6); Phosphorus 3.9 mg/dL (2.3-4.7); Potassium 4.9 mmol/L (3.5-5.1); Sodium 130 mmol/L (136-145)
[2018-08-01] MEDS: traMADol HCl 50 MG TAB PO SCH ×4 (05:25→23:46)
[2018-08-01] MEDS: Acetaminophen 500 MG TAB PO SCH ×4 (05:26→20:42)
--- NOTE | 2018-08-01 08:00 | RAD ---
Chest one view HISTORY: Pneumothoraces. Chest trauma. Follow-up. COMPARISON: 07/31/2018. FINDINGS: Cardiac silhouette is magnified, upper limits of normal, and partially obscured by persiste nt bibasilar atelectasis. Mediastinum is midline with tracheostomy appliance. Thoracostomy tubes remain in place. The small right apical pneumothorax from the previous study is no longer visible. The small left apical pneumothorax is better seen on today's study. In retrospect, it was present on the previous exam and is unchanged. Bilateral rib fractures appear stable. IMPRESSION: Stable left pneumothorax. Interval resolution of the small right apical pneumothorax. Otherwise stable posttraumatic appearance of the chest.
[2018-08-01] MEDS: Gabapentin 100 MG CAP PO SCH ×3 (09:56→20:43)
[2018-08-01] MEDS: Cephalexin 250 MG/5 ML Oral Suspension PER TUBE SCH ×3 (09:56→20:43)
[2018-08-01] MEDS: Famotidine 20 MG TAB PER TUBE SCH ×2 (09:56→20:42)
[2018-08-01] MEDS: Thiamine 100 MG TAB PER TUBE SCH (09:56)
[2018-08-01] MEDS: Folic Acid 1 MG TAB PER TUBE SCH (09:56)
[2018-08-01] MEDS: Aspirin 325 mg Enteric Coated Tablet PO SCH (09:56)
[2018-08-01] MEDS: Enoxaparin Sodium 40 MG/0.4 ML SYRINGE SC SCH (09:56)
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
[2018-08-01] MEDS: Melatonin 3 MG TAB PO PRN (22:36)
[2018-08-02] MEDS: Acetaminophen 500 MG TAB PO SCH ×4 (03:06→20:51)
[2018-08-02 04:54] LABS: #Basophils 0.1 thou/uL (0.0-0.2); #Eosinphils 1.1 thou/uL (0.0-0.7); #Lymphocytes 1.7 thou/uL (1.20-3.40); #Monocytes 1.6 thou/uL (0.11-0.59); #Neutrophils 6.6 thou/uL (1.40-6.50); %Eosinophils 9.7 % (0.0-10.0); %Lymphocytes 15.6 % (21.0-51.0); %Monocytes 14.2 % (0.0-10.0); %Neutrophils 59.4 % (42.0-75.0); Hemoglobin 9.1 g/dL (14.0-18.0); Mean Corpuscular HGB CONC 31.5 g/dL (32.0-36.0); Mean Corpuscular Hemoglobin 29.1 pg (27.0-31.0); Mean Corpuscular Volume 92.3 fL (78.0-98.0); Mean Platelet Volume 6.6 fL (7.4-10.4); Platelet Count 806 thou/uL (130-400); RBC Distribution Width 15.3 % (11.5-14.5); Red Blood Cell (RBC) Count 3.13 mill/uL (4.70-6.10); White Blood Cell (WBC) Count 11.1 thou/uL (4.8-10.8)
[2018-08-02 05:07] LABS: Anion Gap 11 mmol/L (10-20); BUN (Urea Nitrogen) 22 mg/dL (8.4-25.7); Calc. Creatinine Clearance 125 mL/min (70-130); Calcium 8.9 mg/dL (7.8-10.44); Carbon Dioxide 32 mmol/L (22-29); Chloride 94 mmol/L (98-107); Estimated GFR-MDRD Greater than 90; Glucose 103 mg/dL (70-105); Magnesium 2.1 mg/dL (1.6-2.6); Phosphorus 4.5 mg/dL (2.3-4.7); Potassium 5.6 mmol/L (3.5-5.1); Sodium 131 mmol/L (136-145)
[2018-08-02] MEDS: traMADol HCl 50 MG TAB PO SCH ×3 (05:48→18:18)
[2018-08-02] MEDS: Famotidine 20 MG TAB PER TUBE SCH ×2 (08:43→20:51)
[2018-08-02] MEDS: Gabapentin 100 MG CAP PO SCH ×2 (08:43→16:05)
[2018-08-02] MEDS: Enoxaparin Sodium 40 MG/0.4 ML SYRINGE SC SCH (08:43)
[2018-08-02] MEDS: Aspirin 325 mg Enteric Coated Tablet PO SCH (08:43)
[2018-08-02] MEDS: Folic Acid 1 MG TAB PER TUBE SCH (08:43)
[2018-08-02] MEDS: Thiamine 100 MG TAB PER TUBE SCH (08:50)
--- NOTE | 2018-08-02 09:50 | RAD ---
PORTABLE CHEST: Date: 08/02/18 COMPARISON: Prior day's study. HISTORY: Follow-up of pneumothorax. FINDINGS: The left-sided chest tube has been removed. There is a small apical pneumothorax present. It is felt to be similar to the prior exam. Left-sided rib fractures are present. Right chest tube remains in pl madi. Parenchymal lung changes in the right base appear stable, as do the changes in the left base. Tr acheostomy tube is unchanged. IMPRESSION: Interval removal of left-sided chest tube. There is a small apical pneumothorax, felt to be fairly si milar in size to the prior exam. POS: [facility]
[2018-08-02] MEDS: Senokot S 8.6-50 MG TAB PO SCH ×2 (10:04→20:51)
[2018-08-02] MEDS: Polyethylene Glycol 3350 17 GM Packet PER TUBE SCH (10:04)
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
[2018-08-02] MEDS ORDERED: Pancrelipase DR 12000 1 CAP FS PRN (16:55)
[2018-08-02] MEDS ORDERED: Sodium Bicarbonate Tab 325 MG TAB PER TUBE PRN (16:55)
[2018-08-02] MEDS: Gabapentin 300 MG CAP PO SCH (20:51)
[2018-08-03] MEDS: traMADol HCl 50 MG TAB PO SCH ×4 (00:45→17:23)
[2018-08-03] MEDS: Melatonin 3 MG TAB PO PRN ×2 (00:49→22:06)
[2018-08-03] MEDS: Acetaminophen 500 MG TAB PO SCH ×4 (03:10→21:59)
[2018-08-03] MEDS: Enoxaparin Sodium 40 MG/0.4 ML SYRINGE SC SCH (09:12)
[2018-08-03] MEDS: Thiamine 100 MG TAB PER TUBE SCH (09:13)
[2018-08-03] MEDS: Gabapentin 300 MG CAP PO SCH ×3 (09:13→21:59)
[2018-08-03] MEDS: Polyethylene Glycol 3350 17 GM Packet PER TUBE SCH (09:13)
[2018-08-03] MEDS: Senokot S 8.6-50 MG TAB PO SCH ×2 (09:13→21:59)
[2018-08-03] MEDS: Aspirin 325 mg Enteric Coated Tablet PO SCH (09:13)
[2018-08-03] MEDS: Folic Acid 1 MG TAB PER TUBE SCH (09:13)
[2018-08-03] MEDS: Famotidine 20 MG TAB PER TUBE SCH ×2 (09:13→21:59)
--- NOTE | 2018-08-03 10:38 | RAD ---
EXAM: CHEST ONE VIEW HISTORY: Follow-up thoracostomy tube. COMPARISON: 08/02/2018 FINDINGS: The cardiac silhouette and pulmonary vasculature is within normal limits. The right-sided thoracostom y tube has been removed. Bilateral rib fractures are again seen. A very tiny left apical pneumothorax is present, but this does appear diminished compared to prior exam. There is a curviline ar density at the medial right lung apex which may represent very tiny right apical pneumothorax. There are probable small bilateral pleural effusions. There is mild elevation of the right hemidiaphr agm. Fracture involving the body of the right scapula is again seen which is mildly comminuted. Cardiac silhouette is mostly obscured due to shallow depth of inspiration. IMPRESSION: 1. Interval removal of the right-sided thoracostomy tube. There is suggestion of very tiny biapical p neumothoraces. Pneumothorax on the left has diminished from prior study. 2. Bilateral rib fractures which are displaced on the left. 3. Comminuted right scapula fracture.
--- NOTE | 2018-08-03 22:22 | PRG ---
DATE OF SERVICE: 08/03/2018 SUBJECTIVE: The patient remains on the surgical floor. He is hospital day 22 status post blunt chest trauma from being struck by a tree limb. The patient has suffered multiple bilateral rib fractures, hemopneumothorax, acute aspiration pneumonia, and spinal column fracture. Currently, the patient has all of his chest tubes out and his tracheostomy tube has been removed. The patient does still have his PEG tube and is receiving tube feedings at night. Otherwise, he is doing well. He has continued to progress with physical therapy. His pain is controlled and he is tolerating a diet to include his tube feeds. The patient's bowel function has also returned. OBJECTIVE: VITAL SIGNS: Temperature 98.4, heart rate 108, blood pressure 108/75, respirations 14, oxygen saturation 98% on room air. GENERAL: The patient is resting comfortably in bed. He is awake, alert, and oriented x3. Delio Coma Scale is 15. LUNGS: Clear to auscultation with good inspiratory and expiratory effort. HEART: Regular rate and rhythm. ABDOMEN: Soft, flat, nontender with active bowel sounds. PEG tube is functioning. EXTREMITIES: Neurovascularly intact x4. LABORATORY DATA: There are no labs to review this morning. Radiographs, AP chest shows: 1. Interval removal of the right-sided chest tube. There is a suggestion of a very tiny biapical pneumothoraces. The pneumothorax on the left has diminished significantly from prior study. 2. Bilateral rib fractures. 3. Comminuted right scapular fracture. ASSESSMENT: 1. Status post blunt chest trauma, hospital day 22. 2. Acute posttraumatic respiratory failure, resolved. 3. Acute congestive heart failure with bilateral pleural effusions, resolved. 4. Acute blood loss anemia, stable. PLAN: Plan will be to continue supportive care and await placement now that the patient has no tracheostomy or chest tubes in place. The evaluation and examination were done with Dr. Garvey this morning. The patient will have repeat labs and chest x-ray in the morning. Job ID: [id number]
[2018-08-04] MEDS: traMADol HCl 50 MG TAB PO SCH ×4 (00:06→18:06)
[2018-08-04] MEDS: Acetaminophen 500 MG TAB PO SCH ×4 (02:55→21:59)
[2018-08-04 04:49] LABS: #Basophils 0.1 thou/uL (0.0-0.2); #Eosinphils 0.9 thou/uL (0.0-0.7); #Lymphocytes 1.9 thou/uL (1.20-3.40); #Neutrophils 4.7 thou/uL (1.40-6.50); %Basophils 1.6 % (0.0-1.0); %Lymphocytes 22.3 % (21.0-51.0); %Monocytes 11.6 % (0.0-10.0); %Neutrophils 54.4 % (42.0-75.0); Hemoglobin 9.8 g/dL (14.0-18.0); Mean Corpuscular HGB CONC 31.9 g/dL (32.0-36.0); Mean Corpuscular Hemoglobin 29.2 pg (27.0-31.0); Mean Corpuscular Volume 91.6 fL (78.0-98.0); Mean Platelet Volume 6.3 fL (7.4-10.4); Platelet Count 771 thou/uL (130-400); RBC Distribution Width 14.9 % (11.5-14.5); Red Blood Cell (RBC) Count 3.34 mill/uL (4.70-6.10); White Blood Cell (WBC) Count 8.7 thou/uL (4.8-10.8)
[2018-08-04 05:03] LABS: Anion Gap 11 mmol/L (10-20); BUN (Urea Nitrogen) 19 mg/dL (8.4-25.7); Calc. Creatinine Clearance 103 mL/min (70-130); Calcium 9.6 mg/dL (7.8-10.44); Carbon Dioxide 34 mmol/L (22-29); Chloride 94 mmol/L (98-107); Estimated GFR-MDRD Greater than 90; Glucose 107 mg/dL (70-105); Magnesium 2.1 mg/dL (1.6-2.6); Potassium 4.8 mmol/L (3.5-5.1); Sodium 134 mmol/L (136-145)
[2018-08-04] MEDS: Famotidine 20 MG TAB PER TUBE SCH ×2 (08:59→21:59)
[2018-08-04] MEDS: Thiamine 100 MG TAB PER TUBE SCH (08:59)
[2018-08-04] MEDS: Aspirin 325 mg Enteric Coated Tablet PO SCH (08:59)
[2018-08-04] MEDS: Folic Acid 1 MG TAB PER TUBE SCH (08:59)
[2018-08-04] MEDS: Gabapentin 300 MG CAP PO SCH ×3 (09:00→21:59)
[2018-08-04] MEDS: Enoxaparin Sodium 40 MG/0.4 ML SYRINGE SC SCH (09:00)
[2018-08-04] MEDS: Polyethylene Glycol 3350 17 GM Packet PER TUBE SCH (09:25)
[2018-08-04] MEDS: Senokot S 8.6-50 MG TAB PO SCH ×2 (09:26→21:59)
--- NOTE | 2018-08-04 10:25 | RAD ---
EXAM: CHEST ONE VIEW HISTORY: Follow-up bilateral pneumothoraces. COMPARISON: 08/03/2018 FINDINGS: The cardiac silhouette and pulmonary vasculature is within normal limits. There is increased density at the right lung base which may represent small right pleural effusion and atelectasis. Developing infiltrate cannot be entirely excluded. Multiple bilateral rib fractures are again seen some of which are displaced. Previously seen tiny bilateral pneumothoraces are not definitively visualized on today's examination there is certainly no significant pneumothorax identified. The fracture involving the right scapula and distal right clavicle are again seen. Residual contrast is seen in the colon. IMPRESSION: 1. Bilateral rib fractures some of which are mildly displaced. No significant pneumothorax is appreci ated on the current study. Previously noted tiny pneumothoraces are not definitively seen on today's exam. 2. Pleural and parenchymal changes right lung base probably related to small right pleural effusion a nd atelectasis. Developing pneumonia at the right lung base cannot be entirely excluded. There is probable tiny left pleural effusion. 3. Fractures right scapula and right clavicle.
--- NOTE | 2018-08-04 13:07 | PRG ---
DATE OF SERVICE: 08/04/2018 SUBJECTIVE: The patient remains in the surgical floor. The patient is hospital day number 23, status post blunt chest trauma from being struck by a tree limb. The patient with multiple bilateral rib fractures, hemopneumothorax, acute aspiration pneumonia, spinal column fracture. The patient is awake and alert, sitting up in bed, reading. The patient does still have his PEG tube in place and receiving night feedings only. Tracheostomy site with bandage in place. The patient reports sleeping well last night and continuing to do well with physical therapy. The patient reports his pain is well controlled at this time. The patient voices no concerns. OBJECTIVE: VITAL SIGNS: Temperature 98.5, pulse 108, respirations 16, SpO2 of 97% on room air, blood pressure 132/88. GENERAL: The patient is awake and alert, in no distress, sitting up in bed. GCS 15. LUNGS: Clear to auscultation with good inspiratory and expiratory effort. HEART: Regular rhythm. Slightly tachycardic. ABDOMEN: Soft, nontender, nondistended. PEG tube functioning and in place. EXTREMITIES: Neurovascularly intact x4. LABORATORY DATA: WBC 8.7, RBC 3.34, hemoglobin 9.8, hematocrit 30.6, platelets 771. Sodium 134, potassium 4.8, chloride 94, CO2 of 34, BUN 19, creatinine 0.67, estimated GFR greater than 90, glucose 107, calcium 9.6, phosphorus 5.0, and magnesium 2.1. DIAGNOSTICS: Chest x-ray, small right pleural effusion and atelectasis. No significant pneumothorax identified. ASSESSMENT: 1. Status post blunt chest trauma hospital day number 23. 2. Acute post traumatic respiratory failure, resolved. 3. Acute congestive heart failure with bilateral pleural effusions, resolved. 4. Acute blood loss anemia, stable. PLAN: We will continue supportive care and await placement to the [facility]. Hopefully, the patient will be placed tomorrow. Continue free water restriction. We will continue the patient's pain regimen and also continue to encourage his incentive spirometer use. We will also continue to encourage working with Physical Therapy. The plan has been discussed with Dr. Garvey, who agrees. Job ID: [id number] MTDD
[2018-08-04] MEDS: Melatonin 3 MG TAB PO PRN (22:01)
[2018-08-05] MEDS: traMADol HCl 50 MG TAB PO SCH ×3 (00:54→12:10)
[2018-08-05] MEDS: Acetaminophen 500 MG TAB PO SCH ×3 (03:57→14:51)
[2018-08-05] MEDS: Aspirin 325 mg Enteric Coated Tablet PO SCH (07:54)
[2018-08-05] MEDS: Gabapentin 300 MG CAP PO SCH ×2 (07:55→14:51)
[2018-08-05] MEDS: Enoxaparin Sodium 40 MG/0.4 ML SYRINGE SC SCH (07:55)
[2018-08-05] MEDS: Famotidine 20 MG TAB PER TUBE SCH (07:55)
[2018-08-05] MEDS: Thiamine 100 MG TAB PER TUBE SCH (07:55)
[2018-08-05] MEDS: Folic Acid 1 MG TAB PER TUBE SCH (07:55)
[2018-08-05] MEDS: Polyethylene Glycol 3350 17 GM Packet PER TUBE SCH (07:56)
[2018-08-05] MEDS: Senokot S 8.6-50 MG TAB PO SCH (07:56)
[2018-08-05 10:36] VITALS: BMI 16.6
[2018-08-05 15:44] VITALS: BP 122/78; TEMP 98.4
[2018-08-05] MEDS ORDERED: traMADol HCl 50 MG TAB PO SCH (18:00)
--- NOTE | 2018-08-07 06:08 | DIS ---
DATE OF ADMISSION: 07/12/2018 DATE OF DISCHARGE: 08/05/2018 DISCHARGE ATTENDING: Dr. Garvey. CONSULTS: 1. Orthopedics, Dr. San. 2. Neurosurgery. 3. Cardiovascular, Dr. Bell. PROCEDURES: On 07/12/2018, CT scan from [facility] revealed bilateral pneumothoraces, left greater than right; bilateral pleural effusions, right larger than left; multiple bilateral rib fractures, left side 1 through 5 and 7 through 8 with nondisplaced fractures of the right scapular body. The patient had a fracture of the body at T10 with compression and one fracture line running vertically through it front-back, fractures of each lamina were present with a little displacement. Mediastinum was normal. Also L1-[address] brain, abdomen, pelvis, otherwise unremarkable. On 07/12/2018, chest x-ray, no significant interval change. On 07/13/2018, chest x-ray, bilateral chest tubes, minimal subsegmental atelectatic change in the lung bases, no signs of pneumothorax. On 07/14/2018, chest x-ray, interval development of right small pneumothorax. A 12-lead EKG on 07/13/2018, sinus tachycardia, possible left atrial enlargement , T-wave abnormality. Chest x-ray on 07/15/2018, interval removal of right and left-sided chest tubes. No evidence of pneumothorax. Parenchymal changes involving the right mid lung zone and left lung base persistent. On 07/16/2018, chest x-ray, no evidence of recurrent pneumothorax, patient with left-sided rib fractures. Echocardiogram on 07/16/2018, ejection fraction estimated at greater than 65%. Chest x-ray on 07/20/2018, subtle interval development of haziness in the left mid lung field, possible trapped fluid in fissure. On 07/21/2018, chest x-ray, Dobbhoff feeding tube, NG tube, endotracheal tube have been removed, bilateral chest tubes and left subclavian central line in place. Greater degree of blunting of the right lateral costophrenic angle suggesting increase in size of small right pleural space. Mild haziness of left mid lung zone has improved. No pneumothorax is visible. On 07/21/2018, the patient received a fiberoptic bronchoscopy by Dr. Oleary. No endobronchial lesions were seen. All secretions were suctioned clear. On 07/22/2018, procedure percutaneous tracheostomy and percutaneous endoscopic gastrostomy tube placement by Dr. Garvey. Chest x-ray on 07/23. Impression; mild worsening left basilar opacity, may reflect underlying infection or aspiration or compressive atelectasis. On 07/24/2018, development of pleural line at the left lung apex, compatible with small left apical pneumo. On 07/29/2018, chest x-ray, persistent tiny right apical pneumothorax. On 07/30/2018, speech, modified barium swallow. Impression, no laryngeal penetration or tracheal aspiration. On 08/02/2018, chest x-ray. Interval removal of left-sided chest tube. There is a small apical pneumothorax, felt to be similar in size to prior exam. PRIMARY DIAGNOSES: 1. Multiple injuries, status post blunt chest trauma, 2. Bilateral pneumothorax, resolved. 3. Right rib fractures 1 through 5 and 7th rib. 4. Left rib fractures 1 through 5 and 7 and 8. 5.T10 vertebral body fracture. 6. L1-L2 compression fracture. 7. Right scapular fracture. 8. Bilateral clavicle fractures. 9. Hypoxic respiratory failure, resolved 10. Deconditioned SECONDARY DIAGNOSES: 1. History of chronic alcohol abuse. 2. Chronic hyponatremia. DISCHARGE MEDICATIONS: 1. Tramadol 50 mg p.o. q.6 hours for pain. 2. Tylenol 1000 mg p.o. q.6 hours. 3. Aspirin 325 mg p.o. daily. 4. Lovenox 40 mg daily. 5. Pepcid 20 mg daily. 6. Folic acid 1 mg daily. 7. Gabapentin 300 mg p.o. b.i.d. 8. DuoNebs as needed. 9. Melatonin 3 mg q.h.s. 10. MiraLax as needed. 11. Senokot as needed. 12. Sodium bicarb 650 mg per PEG tube. 13. Thiamine 100 mg p.o. daily. There were no discontinued medications. HISTORY OF PRESENT ILLNESS AND HOSPITAL COURSE: This is a 52-year-old gentleman , status post blunt chest trauma from being struck by a large tree limb. The patient was initially seen at [facility] and was a delayed presentation almost 24 hours before receiving care for his injuries. The patient felt that he would be able to sleep off the pain, but the pain became worse with increasing shortness of breath. The patient was evaluated in [facility], and was found to have the above injuries. Bilateral chest tubes were placed to suction. The patient was fitted and placed in a TLSO clamshell brace and to be worn at all times. The patient was initially placed on a SINGING TEACHER pump for pain control. The patient was also placed on Serax for potential alcohol withdrawal as he is a chronic alcohol user. After several days, patient's chest x-rays were stable, and the patient had no air leak in his chest tubes, but both chest tubes were removed. The patient was able to work some with physical therapy. The patient did have a decline in respiratory failure during his hospital course and had to be reintubated. The patient was then trached and pegged as the patient was malnourished and needed additional supplementation. The patient had no neurological deficits with this respiratory failure. The patient eventually had his trach decannulated. The patient was moved to surgical floor and was started back on physical therapy and progressed. On the day of discharge, patient with bilateral chest tube wounds healing. Also, trach site healing with bandage in place. The patient is alert and oriented x3. The patient in good spirits and ready to be discharged to [place], and voices no concerns or complaints. The patient active and was able to walk 1200 feet on the day of discharge. The patient's physical exam was unremarkable including cardiopulmonary and GI exam. The patient was deemed stable for discharge to [facility] for continued physical and occupational therapy. The plan was discussed with the patient and Dr. Garvey, who agree. DISPOSITION: Stable. DISCHARGE INSTRUCTIONS: 1. Location, swing bed, [facility]. 2. Diet, regular diet. 3. Activity, TLSO brace at all times when out of bed. FOLLOWUP: Follow up with Neurosurgery as directed. Follow up with Dr. Garvey with a repeat chest x-ray in 2 weeks. This is just a summary of the hospital course. Job ID: [id number] [facility]
== END 2018-08-05 17:44 | disposition swing bed (61) | DRG 4 ==
LOC: ERS 10:15 → SURG A 10:33 → CCU 07-15 13:43 → SURG A 07-18 13:49 → CCU 07-18 22:10 → SJJU 07-24 17:56
PROVIDERS: ADMIT Specialist; ATTEND Specialist
PROC: 02HV33Z Insertion of Infusion Device into Superior Vena Cava, Percutaneous Approach (ICD-10-PCS; principal; 2018-07-19)
PROC: 5A1945Z Respiratory Ventilation, 24-96 Consecutive Hours (ICD-10-PCS; 2018-07-19)
PROC: 5A12012 Performance of Cardiac Output, Single, Manual (ICD-10-PCS; 2018-07-19)
PROC: 0BH17EZ Insertion of Endotracheal Airway into Trachea, Via Natural or Artificial Opening (ICD-10-PCS; 2018-07-19)
PROC: 30233N1 Transfusion of Nonautologous Red Blood Cells into Peripheral Vein, Percutaneous Approach (ICD-10-PCS; 2018-07-19)
PROC: 0W9930Z Drainage of Right Pleural Cavity with Drainage Device, Percutaneous Approach (ICD-10-PCS; 2018-07-19)
PROC: 0W9B30Z Drainage of Left Pleural Cavity with Drainage Device, Percutaneous Approach (ICD-10-PCS; 2018-07-19)
PROC: 5A1945Z Respiratory Ventilation, 24-96 Consecutive Hours (ICD-10-PCS; 2018-07-21)
PROC: 0BH17EZ Insertion of Endotracheal Airway into Trachea, Via Natural or Artificial Opening (ICD-10-PCS; 2018-07-21)
PROC: 0BJ08ZZ Inspection of Tracheobronchial Tree, Via Natural or Artificial Opening Endoscopic (ICD-10-PCS; 2018-07-21)
PROC: 0B113F4 Bypass Trachea to Cutaneous with Tracheostomy Device, Percutaneous Approach (ICD-10-PCS; 2018-07-22)
PROC: 0DH63UZ Insertion of Feeding Device into Stomach, Percutaneous Approach (ICD-10-PCS; 2018-07-22)
DX: S22.5XXA Flail chest, initial encounter for closed fracture (principal); G93.41 Metabolic encephalopathy; S27.2XXA Traumatic hemopneumothorax, initial encounter; I46.9 Cardiac arrest, cause unspecified; J96.01 Acute respiratory failure with hypoxia; R57.1 Hypovolemic shock; J69.0 Pneumonitis due to inhalation of food and vomit; S32.018A Other fracture of first lumbar vertebra, initial encounter for closed fracture; S32.028A Other fracture of second lumbar vertebra, initial encounter for closed fracture; S22.078A Other fracture of T9-T10 vertebra, initial encounter for closed fracture; E87.1 Hypo-osmolality and hyponatremia; S27.322A Contusion of lung, bilateral, initial encounter; E46 Unspecified protein-calorie malnutrition; Z68.1 Body mass index [BMI] 19.9 or less, adult; D62 Acute posthemorrhagic anemia; E27.40 Unspecified adrenocortical insufficiency; E87.2 Acidosis; R78.81 Bacteremia; E87.5 Hyperkalemia; I50.9 Heart failure, unspecified; E87.6 Hypokalemia; E83.42 Hypomagnesemia; S42.114A Nondisplaced fracture of body of scapula, right shoulder, initial encounter for closed fracture; S42.035A Nondisplaced fracture of lateral end of left clavicle, initial encounter for closed fracture; S42.034A Nondisplaced fracture of lateral end of right clavicle, initial encounter for closed fracture; S01.111A Laceration without foreign body of right eyelid and periocular area, initial encounter; S11.91XA Laceration without foreign body of unspecified part of neck, initial encounter; R33.9 Retention of urine, unspecified; F17.210 Nicotine dependence, cigarettes, uncomplicated; W20.8XXA Other cause of strike by thrown, projected or falling object, initial encounter; Y93.H2 Activity, gardening and landscaping; F10.10 Alcohol abuse, uncomplicated; Z88.2 Allergy status to sulfonamides
CPT/HCPCS: 36415; 36416; 36430; 71045; 71275; 74018; 74177; 74230; 80048; 80053; 80202; 80307; 82533; 82550; 82553; 82805; 83605; 83735; 83880; 84100; 84134; 84484; 85025; 85384; 86850; 86900; 86901; 87040; 87070; 87077; 87086; 87149; 87186; 87205; 89220; 90471; 90715; 93005; 93010; 93306; 94002; 94003; 94640; 94660; 96374; G0390; J0131; J0171; J0461; J1200; J1650; J1720; J1885; J1940; J2001; J2060; J2185; J2250; J2270; J2274; J2543; J2704; J3010; J3370; J3475; J3480; J3490; J7050; J7620; P9016; P9045; P9047; Q0163; Q9966; S0028

== ENCOUNTER 2018-08-15 15:16 | Outpatient (CLI) | payer SELFPAY ==
--- NOTE | 2018-08-15 15:36 | RAD ---
XR Lumbar Spine 2 Or 3 View HISTORY:Follow-up of spinal fracture COMPARISON: CT of chest and abdomen pelvis which was performed 07/12/2018. FINDINGS: The L1 and L2 vertebral body compression fractures are stable. The bones appear demineraliz ed. IMPRESSION: Stable L1 and L2 compression fractures.
--- NOTE | 2018-08-15 15:48 | RAD ---
Exam: Thoracic spine 2 views: HISTORY: Follow-up spinal fracture S 22. 008A FINDINGS: Prominent T 10 vertebral body fracture with vertical height loss with somewhat more marked vertical h eight loss than on the prior CT scan 07/12/2018. IMPRESSION: T10 vertebral body fracture with vertical height loss.
== END 2018-08-15 15:17 | disposition home or self-care (01) ==
LOC: TBSIIMAG 15:16
PROVIDERS: ATTEND Neurological Surgery
DX: M48.56XD Collapsed vertebra, not elsewhere classified, lumbar region, subsequent encounter for fracture with routine healing (principal)
CPT/HCPCS: 72072; 72100

== ENCOUNTER 2018-10-22 15:16 | Outpatient (CLI) | payer SELFPAY ==
--- NOTE | 2018-10-22 15:39 | RAD ---
Exam: 2 views lumbar spine COMPARISON: 08/15/2018 FINDINGS: Stable, chronic mild compression fracture at L1, moderate chronic compression fracture at L 2 and mild chronic superior endplate irregularity at L3. Additional chronic lumbar spine fractures are not appreciated. No acute fractures. Stable kyphosis at the L1-L2 disc space. Chronic changes of the distal thoracic spine, approximately T10 are redemonstrated. IMPRESSION: Chronic changes involving the distal thoracic and upper lumbar spine
--- NOTE | 2018-10-22 15:52 | RAD ---
Exam: History of tree falling on patient's back. COMPARISON: 08/15/2018 FINDINGS: Redemonstration of compression fracture at T10. There is been interval loss of vertebral body height with vertebral plana. There is also irregularity of the L1, L2 levels. Refer to separate thoracic spine radiograph of the detail There is persistent kyphosis secondary to compression fracture at T10. IMPRESSION: Worsening loss of vertebral body height at T10. Currently there is vertebral plana.
== END 2018-10-22 15:17 | disposition home or self-care (01) ==
LOC: TBSIIMAG 15:16
PROVIDERS: ATTEND Neurological Surgery
DX: S22.008A Other fracture of unspecified thoracic vertebra, initial encounter for closed fracture (principal)
CPT/HCPCS: 72072; 72100

== ENCOUNTER 2019-01-22 12:52 | Outpatient (CLI) | payer OTHER, SELFPAY ==
--- NOTE | 2019-01-22 13:12 | RAD ---
XR Thoracic Spine 3 V STANDARD: 01/22/2019 12:00 AM CLINICAL INDICATION: Thoracolumbar fracture COMPARISON: 10/22/2018 FINDINGS: Redemonstration of multilevel compression fractures of T10, L1 and L2 are again seen, similar appeari ng, radiographically. Incidental note of cervical spondylosis. IMPRESSION: Redemonstration of multilevel compression fractures of the thoracolumbar spine, similar appearing.
== END 2019-01-22 12:53 | disposition home or self-care (01) ==
LOC: TBSIIMAG 12:52
PROVIDERS: ATTEND Neurological Surgery
DX: S22.079D Unspecified fracture of T9-T10 vertebra, subsequent encounter for fracture with routine healing (principal); S32.019D Unspecified fracture of first lumbar vertebra, subsequent encounter for fracture with routine healing; S32.029D Unspecified fracture of second lumbar vertebra, subsequent encounter for fracture with routine healing
CPT/HCPCS: 72072

== ENCOUNTER 2022-11-15 19:31 | Emergency (ER) | payer SELFPAY ==
[2022-11-15] MEDS ORDERED: Lidocaine 1% MPF 2 ML VIAL ONE (20:24)
[2022-11-15] MEDS ORDERED: cefTRIAXone (ROCEPHIN) 1 GM VIAL ONE (20:24)
== END 2022-11-15 20:43 | disposition home or self-care (01) ==
LOC: ERS 19:31
DX: J18.9 Pneumonia, unspecified organism (principal); F17.220 Nicotine dependence, chewing tobacco, uncomplicated
CPT/HCPCS: 71045; 96372; J0696